=== PATIENT | male | born 1960 | race Caucasian/White ===

== ENCOUNTER 2022-05-07 15:15 | Outpatient (RCR) | payer OTHER, SELFPAY ==
--- NOTE | 2022-04-19 15:48 | PTOPEVAL1 ---
Assessment and note entered by Deb Babin DPT Evaluation Information Assessment Status Evaluation Subjective Information Pt has a history of a TBI from 11 years ago. Pt's brother reports spasticity in his left leg and sometimes has significant trouble putting his shoe /AFO on. Has had Botox in his leg. Reports things have worsened over the past few years. Pt does walk with a walker and uses a wheelchair at times. Previous left hip replacement about 10 years ago. Sometimes has pain in left leg, 5/10 highest and lowest 0/10. Reports a fall 2-3 months ago. Pt lives in a house, has stairs that he does not use. Two stairs to get in the house with a landing between. Reports he dresses and bathes independently, can cook somewhat independently. Patient goal: be able to put his foot in a shoe, reports it turns to the left as he tries to do so. Reported Pain Level Pain Score 3: Self Report Assessment PT Clinical Summary The patient is presenting to skilled therapy with a history of TBI and muscle spasticity in his left LE. He presents with decreased range of motion, strength, and muscle tone which contribute to difficulty donning a shoe and with gait. He will benefit from therapy to address these impairments in order to increase independence with dressing. Plan of Care Interventions Electrical Stimulation,Gait Training,Hot Pack/Cold Pack,Manual Therapy,Neuro Re-education,Patient/ Caregiver Education,Therapeutic Activities, Therapeutic Exercise,Self-Care/Home Management PT Services Indicated Yes Treatment Frequency and 2 times a week for 3 weeks Duration These treatments will address the objective and functional deficits as defined above. The patient will be advanced safely and appropriately in order for the patient to progress towards his/her prior level of function. Additional exercises will be introduced and as well as a comprehensive home exercise program upon discharge, if needed, ?to ensure carryover of functional gains achieved in the clinic. This treatment plan has been reviewed and agreement upon by the patient.
--- NOTE | 2022-05-10 10:28 | PCPTNOTE ---
Patient's brother called to cancel this appointment, he tested positive for covid and cannot bring David. Rescheduled to next week.
--- NOTE | 2022-06-01 14:06 | PCPTNOTE ---
Patient's brother called to cancel, David started a new medication and is not feeling well. Rescheduled to next week
--- NOTE | 2022-06-25 14:50 | PTOPDC ---
Assessment and note entered by Roddy Iverson, PT, DPT Evaluation Information Assessment Status Discharge - Pt Not Present Subjective Information Pts brother called and cancelled his re-evaluation this date. Pts brother states now is not a good time for them to work on therapy. He wishes to be discharged. Assessment PT Clinical Summary David completed 6 visits of skilled therapy from to 05/07/22.
== END 2022-06-25 15:50 | disposition home or self-care (01) ==
LOC: ANHGOSHPT 15:15
PROVIDERS: PCP Family Medicine
DX: M62.838 Other muscle spasm (principal)
CPT/HCPCS: 97110; 97116; 97140; 97162; 97530

== ENCOUNTER 2024-04-06 14:25 | Emergency (ER) | payer OTHER, SELFPAY ==
--- NOTE | ~2024-04-06 | XR_ITS ---
EXAMINATION: XR foot LT min 3V DATE: 04/06/2024 17:07 INDICATION: Left foot swelling. TECHNIQUE: 4 views of left foot were obtained. COMPARISON: None. FINDINGS: Alignment is normal. No fracture. Joint spaces are normal. There is soft tissue swelling of the foot. IMPRESSION: 1. No fracture. Reviewed, dictated and finalized at location A. RITY SYSTEM ENGINEER IMPRESSION: 1. No fracture.
--- NOTE | ~2024-04-06 | US_ITS ---
EXAMINATION: US venous doppler [facility] DATE: 04/06/2024 17:06 INDICATION: Swelling TECHNIQUE: Grayscale ultrasound images without and with compression and Doppler ultrasound images of the bilateral lower extremity veins were obtained. COMPARISON: None. FINDINGS: The visualized portions of right common femoral vein, profunda (deep) femoral vein, femoral vein, pop liteal vein, peroneal veins, posterior tibial veins, and greater saphenous vein outflow are patent. The visualized portions of left common femoral vein, femoral vein, popliteal vein, peroneal veins, po sterior tibial veins, and greater saphenous vein outflow are patent. Poor visualization of the profunda femoral vein on the submitted images. IMPRESSION: 1. No deep venous thrombosis within the visualized portions of the bilateral lower extremities, as d etailed above. Reviewed, dictated and finalized at location A. ESSIONAL CASTER IMPRESSION: 1. No deep venous thrombosis within the visualized portions of the bilateral l ower extremities, as detailed above.
--- OUTSIDE RECORDS SUMMARY | 2024-04-06 14:32 | XMS_ITS | Encounter Summary ---
Author Organization [facility] Address [address] [place] [address] Care Team Providers Care Relay Associate Name Role Phone Alcides Schultz MD Primary Care Provider [phone] Pierre Calvo MD Primary Care Provider [phone] Reason for Visit * Reason Onset Date Comments Reschedule Appointment 12/27/2022 Encounter Details Date Type Department Care Team ([facility] Contact Info) Description 12/27/2022 Telephone [facility] - Centralized Scheduling [address] [place] [phone] Sarah Smith MD [address] [phone] Reschedule Appointment Social History Tobacco Use Types Packs/Day Years Used Date Smoking Tobacco: Former Smokeless Tobacco: Former Chew Alcohol Use Standard Drinks/Week Comments No 0 (1 standard drink = 0.6 oz pur e alcohol) Sex and Gender Information Value Date Recorded Sex Assigned at Not on file Gender Identity Not on file Sexual Orientation Not on file documented as of this encounter Miscellaneous Notes * Telephone Encounter - Magy Su - 12/27/2022 10:34 AM CDT 03/03/23 Botox appointment bumped. Please contact David to reschedule his appointment. documented in this encounter Plan of Treatment Upcoming Encounters Date Type Department Care Team (Late st Contact Info) Description 04/10/2024 3:00 PM PLASTIC WELDING MACHINE OPERATOR Procedure visit [facility] - Neurology [facility] [facility], [place] [phone] Scooter George MD [address] [facility] 1L [place] [phone] 06/15/2024 3:00 PM CDT Office Visit [facility] - GI [address] [place] [address], [place] [address] Lisa Huang, INDUSTRIAL TRUCK MECHANIC-COMMUNICATIONS INTERN [address] [facility] 2L DIV [place] [address] documented as of this encounter Goals Goal Patient Goal Type Associated Problems Recent Progress Patient-Stated? Author Medication Management General On track( 024 4:13 PM CDT) Kelly Driscoll, RN Note: Expected end date: ongoing Interventions: Take all medications as prescribed documented as of this encounter Visit Diagnoses Not on filedocumented in this encounter Care Teams Relay Associate Relationship Specialty Start Date End Date Alcides Schultz MD [address] [place] [phone] PCP - General Internal Medicine 12/02/22 01/06/23 Pierre Calvo MD [address] [place] [phone] PCP - General Family Medicine 01/07/23 documented as of this encounter
--- OUTSIDE RECORDS SUMMARY | 2024-04-06 14:32 | XMS_ITS | Clinical Summary ---
Author Organization [facility] Address [address] [place] [address] Phone Care Team Providers Care Garden Tractor Mechanic Name Role Phone Jorge Pooel MD Primary Care Provider [phone] Allergies No known active allergies Medications polyethylene glycol (MIRALAX) Powder Use entire 255g bottle with 64oz of clear liquid as directed for colonoscopy prep. 255 g 0 7 Active Additional Information Patient not taking.Reported on 09/04/2018 rosuvastatin (CRESTOR) 40 MG Tablet Take 40 mg by mouth daily. Active ergocalciferol (VITAMIN D) 39830 UNIT Capsule Take 50,000 Units by mouth. Active Cholecalciferol (VITAMIN D-3 PO) Take by mouth. Activ e atorvastatin (LIPITOR) 40 MG Tablet atorvastatin 40 mg tablet Active Vilazodone HCl (VIIBRYD) 40 MG Tablet Viibryd 40 mg tablet TK 1 PO QD Active Active Problems Problem Noted Date Diagnosed Date Depression 08/23/2017 Spasticity 08/23/2017 Traumatic injury 08/22/2017 Incomplete emptying of bladder 04/04/2012 Late effect of head trauma, cognitive deficits 0 08/11/2011 Family History Medical History Relation Name Comments Abdominal Aortic Aneurysm Father Colon Cancer Mother Relation Name Status Comments Father Mother Social History Tobacco Use Types Packs/Day Years Used Date Smoking Tobacco: Former Cigarettes 1 35 1 976 - 2010 Smokeless Tobacco: Former Alcohol Use Standard Drinks/Week Comments No 0 (1 standard drink = 0.6 oz pur e alcohol) Sex and Gender Information Value Date Recorded Sex Assigned at Not on file Legal Sex Male 12:23 AM CDT Gender Identity Not on file Sexual Orientation Not on file Last Filed Vital Signs Vital Sign Reading Time Taken Comments Blood Pressure 104/70 09/04/2018 9:21 AM CDT Pulse 67 09/04/2018 9:21 AM CDT Temperature 36.4 ??C (97.6 ??F) 09/04/2018 9:21 AM CD T Respiratory Rate 16 09/04/2018 9:21 AM CDT Oxygen Saturation 97% 09/04/2018 9:21 AM CDT Inhaled Oxygen Concentration - - Weight 69.9 kg (154 lb) 09/04/2018 9:21 AM CDT p er patient Height 182.9 cm (6') 09/04/2018 9:21 AM CDT Body Mass Index 20.89 09/04/2018 9:21 AM CDT Plan of Treatment Health Maintenance Due Date Last Done Comments Hepatitis C Virus (HCV) Screening 1960 TdaP Immunization 1960 Cologuard 06/25/2011 Immunochemical Fecal Occult Blood 06/25/2011 Pneumococcal Immunization (5 0+ years) (1 of 1 - PCV) 06/25/2011 Zoster Immunization (1 of 2) 06/25/2011 PSA Discussion 2016 Colonoscopy 09/09/2021 09/09/2016 Colorectal Cancer Screening 09/09/2021 Influenza Immunization (#1) 2023 SARS-COV-2 Immunization ( season) 2023 02/24/2021, 06/23/2020, 06/02/2020 Respiratory Syncytial Virus (RSV) Immunization (Adult) (1 - 1-dose 75+ series) 2036 09/09/2016 DTaP/Tdap/Td Immunization Discontinued 11/16/2007 Hepatitis B Immunization Completed 009, 02/23/2008, 11/16/2007 Meningococcal Immunization (ACWY) Aged Out No longer eligible based on patient's age to complete this topic Pneumococcal Immunization Combined Aged Out No longer eligible based on patient's age to complete this topic Rotavirus Immunization Aged Out No lo nger eligible based on patient's age to complete this topic Procedures Procedure Name Priority Date/Time Associated Diagnosis Comments HM COLONOSCOPY Routine 09/09/2016 from Last 3 Months or Most Recently Relevant to Health Maintenance Results * COLONOSCOPY (09/09/2016) Jorge Poole MD PROCEDURE/MINOR SURGICAL ORDE RIANNAJUAN A Final Result from Last 3 Months or Most Recently Relevant to Health Maintenance Insurance [employer] Care Teams Garden Tractor Mechanic Relationship Specialty Start Date End Date Jorge Poole MD [address] [place] [address] PCP - General Family Medicine 05/03/16
--- OUTSIDE RECORDS SUMMARY | 2024-04-06 14:32 | XMS_ITS | Referral Summary ---
Author Organization [facility] Address [address] [facility] [place] [address] Care Team Providers Care Speech And Language Assistant Name Role Phone Pierre Calvo MD Primary Care Provider [phone] Source Comments [facility],non-owned Affiliates and Associated Physician Practices is amultiple site organization consisting of ambulatory clinics and hospital sitesin [place], [place], [place] and [place]. This disclosure is being madepursuant to the Care Everywhere program and may not contain all information available regarding this patient. Last updated 17.[facility] Encounters Date Type Department Care Team Description 02/27/2024 Travel 02/27/2024 11:19 AM BREAK OUT MAN - 02/27/2024 11:59 PM [facility] Hospital Encounter [facility] OP DRAW STATION [address] [place] [phone] Discharge Disposition: Home or Self Care from Last 3 Months Allergies No known active allergies Medications * Be aware that medications may not be up to date on this document. Alwaysverify current medications with the patient. Medication Sig Dispensed Refills Start Date End Date Status buPROPion XL 24hr (Wellbutrin-XL) 150 MG tablet bupropion HCl XL 150 mg 24 hr tablet, extended release TAKE 1 TABLET BY MOUTH EVERY DAY IN THE MORNING Active carbamide peroxide (Debrox) 6.5 % otic solution Instill into both ears as needed Active ergocalciferol (Drisdol) 1.25 MG (61020 UT) capsule ergocalciferol (vitamin D2) 1,250 mcg (50,000 unit) capsule Active escitalopram (Lexapro) 20 MG tablet escitalopram 20 mg tablet TAKE 1 TABLET BY MOUTH EVERY DAY AT BEDTIME Active famotidine (Pepcid) 20 MG tablet Active polyethylene glycol 3350 (Miralax) 17 GM/SCOOP powder Active onabotulinumtoxin A (Botox) 100 units injectionIndicati ons:Muscle Spasticity Inject 300 (three hundred) Units into muscle Every 90 days Reasons: Muscle Spasticity 3 Each 3 02/08/2022 Active atorvastatin (Lipitor) 20 MG tablet Take 1 (one) tablet by mouth 03/06/2023 Active baclofen (Lioresal) 5 MG TABS TAKE 1 TABLET BY MOUTH TWICE DAILY NEEDED. MAY CAUSE DROWSINESS. REASONS: MUSCLE SPASMS 60 tablet 11 08/12/2023 Active onabotulinumtoxin A (Botox) 100 units injectionIndicati ons:Muscle Spasticity Inject 300 (three hundred) Units into muscle Every 90 days Reasons: Muscle Spasticity 3 Each 3 09/13/2023 Active Active Problems Problem Noted Date Diagnosed Date Dystrophia unguium 11/29/2022 01/07/2023 Left foot drop 11/29/2022 01/07/2023 Onychomycosis of toenail 10/18/2022 023 Vitamin D deficiency 10/14/2020 01/07/2023 Overview (01/07/2023): Last Assessment & Plan: Condition: stable David is encouraged to spend at least 10 minutes in the sun daily. Also pt should try to include fatty fish, seafood, and mushrooms in their diet. A diet rich on yogurt fortified foods, and egg yolks may help increase pts vitamin D levels. Follow up in: three months with PCP Chronic idiopathic constipation 09/10/2020 01/07/2023 Gastroesophageal reflux disease without esophagi tis 09/10/2020 01/07/2023 Overview (01/07/2023): Last Assessment & Plan: Condition: stable Reviewed use of antacid medication and/or diet modifications of decreasing caffeine, spicy foods, chocolate, and avoiding alcohol, tobacco, NSAIDs, and reducing citrus acids. Follow up in: three months Impaired mobility 09/10/2020 01/07/2023 Irritable bowel syndrome 09/10/2020 023 History of traumatic brain injury 05/07/2019 Hyperbilirubinemia 05/07/2019 Hyperlipidemia 05/07/2019 Muscle weakness 05/07/2019 Ex-smoker 05/06/2019 03/09/2023 Elevated liver enzymes 11/02/2018 Overview (01/07/2023): 01/09/19 Fibroscan CAP 234, E 4.1 kPa 01/07/23 Fibroscan CAP 189, LSM 6.2 kPa Spasticity 08/23/2017 Depression 08/23/2017 Traumatic injury 08/22/2017 Periprosthetic fracture arou nd internal prosthetic left hip joint 07/15/2012 Incomplete emptying of bladder 04/04/2012 Late effect of head trauma, cognitive deficits 0 08/11/2011 Resolved Problems Problem Noted Date Diagnosed Date Resolved Date Bilateral impacted cerumen 05/06/2019 03/09/2023 0 03/23/2023 Immunizations Name Administration Dates Next Due [employer] BIVALENT 12Y+ 30mcg/0.3ML 2 HEP A VACCINE, ADULT 05/24/2008,11/17/2007 HEP B VACCINE, ADULT 3 DOSE 07/12/2008, 8,11/16/2007 INFLUENZA VACCINE, QUADR. (F LUZONE; FLULAVAL; FLUARIX; AFLURIA QUADRIVALENT; 6MO+), 0.5 ML (IIV4) 12/13/2022 MMR VACCINE 11/17/2007 TD (AGE 7-ADULT) 11/16/2007 TDAP, HISTORIC VACCINE 02/24/2021 Social History Tobacco Use Types Packs/Day Years Used Date Smoking Tobacco: Former Smokeless Tobacco: Former Chew Quit: 12/29/2010 Tobacco Cessation:Counseling Given: Not Answered Alcohol Use Standard Drinks/Week Comments No 0 (1 standard drink = 0.6 oz pur e alcohol) Sex and Gender Information Value Date Recorded Sex Assigned at Not on file Gender Identity Not on file Sexual Orientation Not on file Last Filed Vital Signs Vital Sign Reading Time Taken Comments Blood Pressure 102/68 09/13/2023 11:31 AM CDT Pulse 73 09/13/2023 11:31 AM CDT Temperature 36.5 ??C (97.7 ??F) 06/17/2023 3:34 PM CD T Respiratory Rate 20 09/24/2019 12:10 PM CDT Oxygen Saturation 96% 09/13/2023 11:31 AM CDT Inhaled Oxygen Concentration - - Weight 80.7 kg (178 lb) 09/13/2023 11:31 AM CDT Height 182.9 cm (6') 06/17/2023 3:34 PM CDT Body Mass Index 24.14 06/17/2023 3:34 PM CDT Plan of Treatment Upcoming Encounters Date Type Department Care Team (Late st Contact Info) Description 04/10/2024 3:00 PM BREAK OUT MAN Procedure visit [facility] - Neurology [address] [place] [address], [place] [phone] Scooter George MD [address] [place] [address] [address] [place] [address] 06/15/2024 3:00 PM CDT Office Visit [facility] - GI [address] [place] [address], [place] [address] Lisa Huang, WAREHOUSE PICKER-SOLE LAYER [address] [place] [address] [address] [place] [address] Goals Goal Patient Goal Type Associated Problems Recent Progress Patient-Stated? Author Medication Management General On track( 024 4:13 PM CDT) Kelly Driscoll, RN Note: Expected end date: ongoing Interventions: Take all medications as prescribed Procedures Procedure Name Priority Date/Time Associated Diagnosis Comments COMPREHENSIVE METABOLIC PANEL Routine 02/27/2024 12:18 PM BREAK OUT MAN Hyperbilirubinemia CBC W AUTO DIFFERENTIAL Routine 02/27/2024 12:18 PM BREAK OUT MAN Hyperbilirubinemia HEPATITIS C RNA QUANTITATIVE Routine 11/02/2018 3:45 PM CDT Elevated liver enzymes from Last 3 Months or Most Recently Relevant to Health Maintenance Results * (ABNORMAL) CBC WITH DIFFERENTIAL (02/27/2024 12:18 PM [facility]) WBC 6.9 4.0 - 10.7 x10E9/L 02/27/2024 1:28 PM [facility] RBC Count 4.85 4.30 - 5.80 x10E12/L 02/27/2024 1:28 PM [facility] Hemoglobin 14.6 13.3 - 17.5 g/dL 02/27/2024 1:28 PM [facility] Hematocrit 43.0 38.7 - 51.1 % 02/27/2024 1:28 PM [facility] MCV 88.7 80.0 - 98.0 fL 02/27/2024 1:28 PM [facility] MCH 30.1 26.7 - 33.6 pg 02/27/2024 1:28 PM [facility] MCHC 34.0 31.7 - 36.3 g/dL 02/27/2024 1:28 PM [facility] RDW-CV 12.4 11.3 - 14.8 % 02/27/2024 1:28 PM [facility] Platelet Count 226 150 - 420 x10E9/L 02/27/2024 1:28 PM [facility] MPV 12.1(H) 7.8 - 11.4 fL 02/27/2024 1:28 PM [facility] Neutrophil % 68.4 41.0 - 74.0 % 02/27/2024 1:28 PM [facility] Lymphocyte % 20.4 17.0 - 47.0 % 02/27/2024 1:28 PM [facility] Monocyte % 6.5 3.0 - 11.0 % 02/27/2024 1:28 PM [facility] Eosinophil % 4.2 0.0 - 7.0 % 02/27/2024 1:28 PM [facility] Basophil % 0.4 0.0 - 1.6 % 02/27/2024 1:28 PM [facility] Immature Granulocytes % 0.1 0.0 - 1.0 % 02/27/2024 1:28 PM [facility] Neutrophil Absolute 4.72 1.60 - 7.50 x10E9/L 02/27/2024 1:28 PM [facility] Lymphocyte Absolute 1.41 1.00 - 4.40 x10E9/L 02/27/2024 1:28 PM [facility] Monocyte Absolute 0.45 0.15 - 1.00 x10E9/L 02/27/2024 1:28 PM [facility] Eosinophil Absolute 0.29 0.00 - 0.60 x10E9/L 02/27/2024 1:28 PM [facility] Basophil Absolute 0.03 0.00 - 0.13 x10E9/L 02/27/2024 1:28 PM [facility] Blood BLOOD SPECIMEN / Unknown Lab Venipuncture / Unknown 02/27/2024 12:18 PM BREAK OUT MAN 02/27/2024 1:02 PM [facility] Lisa Huang WAREHOUSE PICKER-SOLE LAYER LAB - HEMATO LOGY ORDERABLES Performing Organization Address City/[facility] Co de Phone Number [facility] [address] [place] [phone], [facility] [phone] * (ABNORMAL) COMPREHENSIVE METABOLIC PANEL (02/27/2024 12:18 PM BREAK OUT MAN) BUN 14 7 - 26 mg/dL 02/27/2024 2:02 PM [facility] Creatinine 1.11 0.71 - 1.16 mg/dL 02/27/2024 2:02 PM [facility] Sodium 140 136 - 145 mmol/L 02/27/2024 2:02 PM [facility] Potassium 4.1 3.5 - 4.5 mmol/L 02/27/2024 2:02 PM [facility] Chloride 106 98 - 107 mmol/L 02/27/2024 2:02 PM [facility] CO2 26 22 - 29 mmol/L 02/27/2024 2:02 PM [facility] Glucose 97 70 - 99 mg/dL 02/27/2024 2:02 PM [facility] Calcium 8.9 8.4 - 10.2 mg/dL 02/27/2024 2:02 PM [facility] Protein Total 7.3 6.0 - 8.3 g/dL 02/27/2024 2:02 PM [facility] Albumin 4.0 3.4 - 5.0 g/dL 02/27/2024 2:02 PM [facility] Bilirubin Total 1.3(H) 0.2 - 1.2 mg/dL 02/27/2024 2:02 PM [facility] Alkaline Phosphatase 148 40 - 150 U/L 02/27/2024 2:02 PM [facility] ALT 49 5 - 55 U/L 02/27/2024 2:02 PM [facility] AST 33 5 - 34 U/L 02/27/2024 2:02 PM [facility] Anion Gap 8 6 - 16 02/27/2024 2:02 PM [facility] BUN/Creatinine Ratio 13 7 - 23 02/27/2024 2:02 PM [facility] Osmolality Calculated 290 275 - 295 mOsm/kg 02/27/2024 2:02 PM [facility] Albumin/Globulin Ratio 1.2 1.1 - 2.3 02/27/2024 2:02 PM [facility] eGFR by CKD-EPI 75(L) >=90 mL/min/1.7 3 m2 02/27/2024 2:02 PM [facility] Blood BLOOD SPECIMEN / Unknown Lab Venipuncture / Unknown 02/27/2024 12:18 PM BREAK OUT MAN 02/27/2024 1:04 PM BREAK OUT MAN Lisa Huang WAREHOUSE PICKER-SOLE LAYER LAB - CHEMIS TRY ORDERABLES [facility] [address] [place] [address], [facility] [phone] * HEPATITIS C RNA QUANTITATIVE (11/02/2018 3:45 PM CDT) Hepatitis C RNA PCR, Interp Not Detected Not Detected 11/07/2018 8:35 PM CDT [facility] Blood BLOOD SPECIMEN / Unknown Lab Venipuncture / Unknown 11/02/2018 3:45 PM CDT 11/02/2018 4:04 PM CDT Narrative [facility] - 11/07/2018 8:35 PM CDT The Hepatitis C viral (HCV) RNA analysis utilized a serum sample, real-time reverse ax survey worker PCR, and is reported as Not Detected, Detected (<12 IU/mL), Quantity (IU/mL) or >100,000,000 IU/mL. The limit of quantitation of the assay is 12 IU/mL (100% of samples with this HCV RNA level were detected). ??The linear range is from 12 IU/mL to 100,000,000 IU/mL. ??Values less than 12 IU/mL are reported as Detected (<12 IU/mL). ??Values greater than 100,000,000 IU/mL are reported as > 100,000,000 IU/mL. The detection/quantitation of HCV RNA in serum is based on the isolation of HCV RNA with reverse ax survey worker of genomic HCV RNA followed by real-time PCR in the presence of an unrelated RNA internal control. ??The internal control ensures that RNA is isolated, and that no general significant inhibitors of the RT-PCR process are present. The analysis was performed using a U.S. FDA approved test methodology ([employer] Real Time HCV). Lisa Huang APRN-SOLE LAYER LAB - CHEMIS TRY ORDERABLES [facility] [address] [facility]. [address] [phone] from Last 3 Months or Most Recently Relevant to Health Maintenance Care Teams Speech And Language Assistant Relationship Specialty Start Date End Date Pierre Calvo MD [address] [place] [phone] PCP - General Family Medicine 01/07/23
--- OUTSIDE RECORDS SUMMARY | 2024-04-06 14:32 | XMS_ITS | Data Portability ---
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 Active 2022 Horace Loo DPM [address], [place], [address] , [facility] 3 15:48:15 Severe dry skin 580904711 Active 2022 Horace Loo DPM [address], [place], [address] , [facility] 3 15:48:28 Unable to cut own toenails 577556430 Active 2022 Horace Loo DPM [address], [place], [address] , [facility] 3 15:49:18 Notes:injury to the brain, l eft shoulder and left leg Problem Notes None recorded. Procedures Surgical History Date Name Laterality Status Provider Name and Address Organization Details Recorded Time 03/10/19 24 Ear Irrigation completed Pierre Calvo MD [address] [facility], [facility] [address], [place], [address], [facility] [employer] [facility] 03/10/2023 16:18:27 11/30/19 23 Nail Debridement completed Horace Loo DPM [address] [facility], [facility] [address], [place], [address], [facility] [employer] 11/29/2022 15:48:01 Shoulder joint surgery completed Not Available [facility] 05/05/2022 19:48:20 Hip surgery completed Not Available [facility] 05/05/2022 19:48:20 Imaging Results None recorded. Procedure Notes None recorded. Medical Equipment None Reported. Allergies No known drug allergies Medications Name Sig Start Date Stop Date Status Note LastModified by Organization Details LastModified Time quetiapine 25 mg tablet TK 1 T PO QHS 09/10 completed Not Available Not Available Not Available atorvastati n 40 mg tablet Take 1 tablet every day by oral route. 01/08 completed Not Available Not Available Not Available atorvastati n 20 mg tablet TAKE 1 TABLET BY MOUTH EVERY DAY AT BEDTIME 2023 active Not Available Not Available Not Avai lable ammonium lactate 12 % lotion Apply 2 applicati ons every day by topical route as directed. 2022 active Not Available Not Available Not Avai lable atorvastati n 10 mg tablet TAKE 1 TABLET BY MOUTH EVERY DAY 12/08 completed Not Available Not Available Not Available promethazin e 12.5 mg tablet Take 1 tablet twice a day by oral route as needed for 15 days. active Not Available Not Available No t Available Debrox 6.5 % ear drops INSTILL 4 DROPS INTO AFFECTED EAR(S) BY OTIC ROUTE 2 TIMES PER DAY 11/29 completed Not Available Not Available Not Available famotidine 20 mg tablet TAKE 1 TABLET BY MOUTH TWICE DAILY DIRECTED active Not Available Not Available No t Available ergocalcife rol (vitamin D2) 1,250 mcg (50,000 unit) capsule TAKE 1 CAPSULE BY MOUTH EVERY WEEK DIRECTED 2024 active Not Available Not Available Not Avai lable polyethylen e glycol 3350 17 gram/dose oral powder Take 17 g every day by oral route as directed for 30 days. active Not Available Not Available No t Available Adult Low Dose Aspirin 81 mg tablet,sharonda yed release Take 1 tablet every day by oral route with meals for 90 days. 2023 active Not Available Not Available Not Avai lable escitalopra m 10 mg tablet TAKE 1 TABLET BY MOUTH EVERY DAY AT BEDTIME 10/13 completed Not Available Not Available Not Available escitalopra m 20 mg tablet TAKE 1 TABLET BY MOUTH EVERY DAY AT BEDTIME active Not Available Not Available No t Available Vitamin D3 25 mcg (1,000 unit) capsule Take 1 capsule every day by oral route. 09/10 completed Not Available Not Available Not Available rosuvastati n 20 mg tablet Take 1 tablet every day by oral route. active Not Available Not Available No t Available Crestor 40 mg tablet Take 1 tablet every day by oral route. active Not Available Not Available No t Available bupropion HCl XL 150 mg 24 hr tablet, extended release TAKE 1 TABLET BY MOUTH EVERY DAY IN THE MORNING active Not Available Not Available No t Available duloxetine 30 mg capsule,del ayed release TK 1 C PO D 09/10 completed Not Available Not Available Not Available Lactobacill us acidophilus 1 billion cell tablet Take 1 tablet every day by oral route as directed for 30 days. active Not Available Not Available No t Available baclofen active Not Available Not Avai lable Not Available Viibryd 40 mg tablet TK 1 T PO QAM 09/10 completed Not Available Not Available Not Available Vitals Date Recorded Body height Provider Name an d Address Organization Details Last Updated DateTime 12/08/2022 182.88 cm Jed [employer] 12/08/2022 16:49:16 Date Recorded Body mass index (BMI) Body weight Provider Name and Address Organization Details Last Updated DateTime 12/08/2022 20.4 kg/m2 75787.21 g [employer] 12/08/2022 16:49:33 Date Recorded Body temperature Provider Name a nd Address Organization Details Last Updated DateTime 12/08/2022 97.1 [degF] Jed [employer] 12/08/2022 16:49:46 Date Recorded Heart rate Provider Name an d Address Organization Details Last Updated DateTime 12/08/2022 97.9 /min Jed Rogers [facility] 12/08/2022 16:50:06 Date Recorded Respiratory rate Provider Name a nd Address Organization Details Last Updated DateTime 12/08/2022 16 /min Jed Rogers [facility] 12/08/2022 16:51:08 Date Recorded Oxygen saturation Oxygen saturation in Arterial blood by Pulse oximetry Provider Name and Address Organization Details Last Updated DateTime 12/08/2022 99 % 99 % Jed [facility] - [facility] 12/08/2022 16:51:18 Date Recorded Body height Provider Name an d Address Organization Details Last Updated DateTime 03/10/2023 182.88 cm Jed Rogers [facility] 03/10/2023 16:10:32 Date Recorded Body mass index (BMI) Body weight Provider Name and Address Organization Details Last Updated DateTime 03/10/2023 21.7 kg/m2 82606.78 g Jed MED[facility] - [facility] [place] [employer] [facility] 03/10/2023 16:11:07 Date Recorded Body temperature Provider Name a nd Address Organization Details Last Updated DateTime 03/10/2023 97.1 [degF] Jed BANUELOSS [facility] 03/10/2023 16:11:16 Date Recorded Heart rate Provider Name an d Address Organization Details Last Updated DateTime 03/10/2023 98.1 /min Jed Rogers [facility] 03/10/2023 16:11:31 Date Recorded Respiratory rate Provider Name a nd Address Organization Details Last Updated DateTime 03/10/2023 16 /min Jed [facility] - [facility] 03/10/2023 16:11:34 Date Recorded Oxygen saturation Oxygen saturation in Arterial blood by Pulse oximetry Provider Name and Address Organization Details Last Updated DateTime 03/10/2023 97 % 97 % Jed Rogers [facility] 03/10/2023 16:13:21 Date Recorded Body height Provider Name an d Address Organization Details Last Updated DateTime 06/28/2023 182.88 cm Jed Rogers [facility] [employer] [facility] 06/28/2023 16:48:50 Date Recorded Body mass index (BMI) Body weight Provider Name and Address Organization Details Last Updated DateTime 06/28/2023 23.1 kg/m2 75156.7 g Jed [facility] - [facility] [place] [employer] [facility] 06/28/2023 16:52:19 Date Recorded Body temperature Provider Name a nd Address Organization Details Last Updated DateTime 06/28/2023 98.1 [degF] Jed [facility] - [facility] [place] [employer] [facility] 06/28/2023 16:52:42 Date Recorded Heart rate Provider Name an d Address Organization Details Last Updated DateTime 06/28/2023 98.4 /min Jed MEDINA - [facility] [employer] [facility] 06/28/2023 16:52:58 Date Recorded Respiratory rate Provider Name a nd Address Organization Details Last Updated DateTime 06/28/2023 16 /min Jed [facility] - [facility] [place] [employer] [facility] 06/28/2023 16:53:02 Date Recorded Oxygen saturation Oxygen saturation in Arterial blood by Pulse oximetry Provider Name and Address Organization Details Last Updated DateTime 06/28/2023 98 % 98 % Jed MED[facility] - S [employer] [facility] 06/28/2023 16:54:53 Date Recorded Body height Provider Name an d Address Organization Details Last Updated DateTime 10/20/2023 182.88 cm Jed B[place] [employer] [facility] 10/20/2023 15:58:04 Date Recorded Body mass index (BMI) Body weight Provider Name and Address Organization Details Last Updated DateTime 10/20/2023 23.1 kg/m2 32878.7 g Jed Rogers [place] [employer] [facility] 10/20/2023 15:59:21 Date Recorded Body temperature Provider Name a nd Address Organization Details Last Updated DateTime 10/20/2023 98 [degF] Jed MEDINA - [facility] [employer] [facility] 10/20/2023 16:00:00 Date Recorded Heart rate Provider Name an d Address Organization Details Last Updated DateTime 10/20/2023 72 /min Jed [facility] - [facility] [place] [employer] [facility] 10/20/2023 16:00:30 Date Recorded Respiratory rate Provider Name a nd Address Organization Details Last Updated DateTime 10/20/2023 16 /min Jed BANU[facility]OSS [employer] [facility] 10/20/2023 16:00:34 Date Recorded Oxygen saturation Oxygen saturation in Arterial blood by Pulse oximetry Provider Name and Address Organization Details Last Updated DateTime 10/20/2023 98 % 98 % Jed [facility] - [facility] [place] [facility] 10/20/2023 16:02:28 Date Recorded Systolic blood pressure Diastolic blood pressure Provider Name and Address Organization Details Last Updated DateTime 12/08/2022 118 mm[Hg] 64 mm[Hg] Jed [facility] - [facility] [place] [facility] 12/08/2022 16:51:16 Date Recorded Systolic blood pressure Diastolic blood pressure Provider Name and Address Organization Details Last Updated DateTime 03/10/2023 102 mm[Hg] 64 mm[Hg] Jed [facility] - [facility] [place] [facility] 03/10/2023 16:13:09 Date Recorded Systolic blood pressure Diastolic blood pressure Provider Name and Address Organization Details Last Updated DateTime 06/28/2023 110 mm[Hg] 60 mm[Hg] Jed [facility] - [facility] [place] [facility] 06/28/2023 16:54:48 Date Recorded Systolic blood pressure Diastolic blood pressure Provider Name and Address Organization Details Last Updated DateTime 10/20/2023 108 mm[Hg] 68 mm[Hg] Jed [facility] [facility] 10/20/2023 16:02:10 Social History Question Answer Notes LastModified by Organizat ion Details LastModified Time Tobacco Smoking Status Former Smoker Not Available [facility] 05/05/2022 19:48:19 Do You Have An Advance Directive? No [id number] Information not available 05/05/2022 What Is Your Level Of Alcohol Consumption? None [id number] Information not available 05/05/2022 Are You Blind Or Do You Have Difficulty Seeing? No MIGRATION.[id number] [id number] Information not available 05/05/2022 What Is Your Level Of Caffeine Consumption? Occasional Information not available 11/29/2022 What Is Your Code Status? Full Code [id number] Information not available 05/05/2022 In The 14 Days Before Symptom Onset, Have You Had Close Contact With A Laboratory-confir med COVID-19 While That Case Was Ill? No [id number] Information not available 05/05/2022 In The 14 Days Before Symptom Onset, Have You Had Close Contact With A Person Who Is Under Investigation For COVID-19 While That Person Was Ill? No MIGRATION.[id number] 3003 Information not available 05/05/2022 Are You Deaf Or Do You Have Serious Difficulty Hearing? No MIGRATION.[id number] 1460 Information not available 05/05/2022 What Type Of Diet Are You Following? REGULAR MIGRATION.[id number] 5800 Information not available 05/05/2022 Do You Have A Medical Power Of Wrapper Counter? No MIGRATION.[id number] 6572 Information not available 05/05/2022 What Was The Date Of Your Most Recent Tobacco Screening? 11/29/2022 Information not available 11/29/2022 Do You Use Any Illicit Or Recreational Drugs? No Information not available 11/29/2022 Has Tobacco Cessation Counseling Been Provided? No Information not available 11/29/2022 Have You Recently Traveled Abroad? No MIGRATION.[id number] Information not available 05/05/2022 Do You Have Any Dietary Restrictions? No MIGRATION.500551 4261 Information not available 05/05/2022 Do You Or Have You Ever Used Any Other Forms Of Tobacco Or Nicotine? No Information not available 11/29/2022 Sex: Male Functional Status Question Answer Note LastModified by Organizat ion Details LastModified Time Do you have difficulty walking or climbing stairs? Yes MIGRATION.[id number] Information not available 05/05/2022 Do you have transportation difficulties? Yes hasn't driven in 2 years MIGRATION.91624 96069 Information not available 05/05/2022 Are you able to walk? YESASSIST wheelchair and walker MIGRATION.11738 45039 Information not available 05/05/2022 Do you have difficulty doing errands alone? Yes MIGRATION.78717 90661 Information not available 05/05/2022 Are you able to care for yourself? Yes MIGRATION.23026 30214 Information not available 05/05/2022 Do you have difficulty dressing or bathing? No MIGRATION.60000 32989 Information not available 05/05/2022 What is your exercise level? None MIGRATION.84761 02978 Information not available 05/05/2022 Mental Status Question Answer Note LastModified by Organizat ion Details LastModified Time Do you have difficulty concentrating, remembering or making decisions? Yes [id number] 6 Information not available 05/05/2022 Family History Relationship Description Onset Age of this Age Resolved Age Notes LastModified by Organization Details LastModified Time Father No current problems or disability [id number] Not available 05/05/2022 19:48:21 Mother No current problems or disability MIGRATION.[id number] Not available 05/05/2022 19:48:21 Father Hypertensive disorder Not available 2022 15:24:18 Mother Hypertensive disorder Not available 2022 15:24:18 Mother Family history of malignant neoplasm Not available 2022 15:24:34 Medical History Condition Response DEPRESSION (INCLUDING POST ) Y HIGH CHOLESTEROL / HYPERLIPIDEMIA Y Immunizations Vaccine Type Date Status Note Provider Nam e and Address Organization Details Recorded Time Influenza, split virus, quadrivalent, PF 12/13/2022 completed CAROL Almendarez Arsenio [place] [facility] 12/14/2022 10:05:54 Past Encounters Encounter ID Performer Location Encounter Start Date Encounter Closed Date Diagnosis/Indication Diagnosis SNOMED-CT Code Diagnosis ICD10 Code Diagnosis Note [id number] [address] [address] 09/10/2020 00:00:00 09/10/2020 17:46:[id number] [address] 10/01/2020 00:00:00 10/08/2020 16:53:[id number] [address] 10/14/2020 00:00:00 10/14/2020 18:04:[id number] [address] 01/05/2021 00:00:00 01/05/2021 16:58:[id number] [address] 01/14/2021 00:00:00 01/14/2021 17:21:34 [id number] [facility]enny [address] [place] [address] 10/13/2021 00:00:00 10/13/2021 17:56:43 [id number] [facility] Heidi Rausch, [address] [address] 01/05/2021 00:00:00 01/05/2021 13:09:36 [id number] [facility] Tari Rausch, [address] [address] 02/05/2021 00:00:00 02/05/2021 16:09:05 [id number] [facility] Heidi Rausch, [address] [address] 04/01/2021 00:00:00 04/01/2021 14:50:02 [id number] [facility] 4 Tari Rausch, [address] [address] 04/29/2021 00:00:00 04/29/2021 18:35:34 [id number] [facility] 4 Tari Rausch, [address] [address] 05/25/2021 00:00:00 05/25/2021 16:29:11 [id number] [facility] 4 Tari Rausch, [address] [address] 06/25/2021 00:00:00 06/25/2021 16:18:13 [id number] [facility] 4 Tari Rausch, [address] [address] 08/20/2021 00:00:00 08/20/2021 17:20:34 [id number] [facility] Tari Rausch, [address] [address] 09/17/2021 00:00:00 09/17/2021 15:49:21 [id number] [facility] 4 Tari Rausch, [address] [address] 11/12/2021 00:00:00 11/12/2021 16:53:38 [id number] [facility] [address] [address] 01/14/2022 00:00:00 01/14/2022 16:31:20 [id number] [facility] [address] [address] 04/08/2022 00:00:00 04/12/2022 14:29:32 [id number] Taya Isidro NP [facility] [address] [address] 07/07/2022 15:52:02 07/07/2022 17:36:55 [id number] Taya Isidro NP [facility] [address] [address] 10/05/2022 15:33:57 10/05/2022 15:56:26 [id number] Pierre Calvo MD [facility]_[address] [address] 10/18/2022 14:25:45 10/18/2022 15:03:09 Adult health examination 752731009 Z00.00 Vitamin D deficiency 347 42806 E55.9 Muscle weakness 18754489 M62.81 Impaired mobility 320079 05 Z74.09 Onychomyco sis of toenails 775697066 B35.1 Impacted c erumen of bilateral ears 9485607604 175024 H61.23 [id number] Horace Loo DPM [facility] Pod[facility]ry Kristina Navarro [address] [place] [address] 11/29/2022 15:14:41 11/30/2022 11:56:47 Left foot drop 2025004174 31156 M21.372 continue AFOCheck feet daily for wounds infection Dystrophia unguium 20582 009 L60.3 Nails 1 through 10 were debrided with sharp mechanical debridemen t without incident. Nails were debrided and greater than 50% length and thickness where needed. Severe dry skin 14198944 2 L85.3 daily foot hygiene History of traumatic brain injury 0498536922 9100 Z87.820 affect of the left side Unable to cut own toenails 111998780 Z74.1 secondary to traumatic brain injury [id number] Pierre Calvo MD [place] [address] 1 12/08/2022 16:44:32 12/08/2022 17:12:41 Vitamin D deficiency 50258310 E55.9 Muscle weakness 75702005 M62.81 Impaired mobility 086052 05 Z74.09 Onychomyco sis of toenails 910661768 B35.1 Impacted c erumen of bilateral ears 6953058542 392790 H61.23 Hyperlipidemia 04711717 E78.5 Liver enzy mes level above reference range 146876511 R74.01 Administra tion of influenza vaccine 84456420 Z23 [id number] Taya Isidro NP [facility] [address] [place] [address] 02/02/2023 16:35:03 02/02/2023 17:59:15 [id number] Pierre Calvo MD [address] [address] 03/10/2023 16:03:09 03/10/2023 16:30:25 Vitamin D deficiency 55494708 E55.9 Liver enzy mes level above reference range 724750919 R74.01 Chronic Impacted c erumen of bilateral ears 1309551952 360501 H61.23 Muscle weakness 93399060 M62.81 Impaired mobility 613651 05 Z74.09 Onychomyco sis of toenails 932426771 B35.1 Hyperlipidemia 79327582 E78.5 [id number] Taya Isidro NP [facility] [address] [place] [address] 06/02/2023 16:36:27 06/02/2023 17:28:19 [id number] JOCE Kowalski [address] [address] 06/09/2023 14:11:33 06/09/2023 14:14:52 [id number] Pierre Calvo MD [address] [address] 06/28/2023 16:47:49 06/28/2023 17:18:27 Hyperlipidemia 26102022 E78.5 Liver enzy mes level above reference range 604197929 R74.01 Chronic Vitamin D deficiency 347 08004 E55.9 Muscle weakness 61341611 M62.81 Impaired mobility 008163 05 Z74.09 Onychomyco sis of toenails 360523696 B35.1 [id number] Taya Isidro NP [facility] [address] [address] 08/24/2023 15:11:01 08/24/2023 15:43:47 [id number] Pierre Calvo MD [address] [address] 10/20/2023 15:53:26 10/20/2023 16:24:17 Hyperlipidemia 44339073 E78.5 Liver enzy mes level above reference range 275976238 R74.01 Chronic Vitamin D deficiency 347 10548 E55.9 Muscle weakness 35136254 M62.81 Impaired mobility 729974 05 Z74.09 Onychomyco sis of toenails 673305592 B35.1 Adult heal th examination 653088944 Z00.00 Impacted c erumen of bilateral ears 7386390359 796618 H61.23 Screening colonoscopy 44 2470812 Z12.11 [id number] Taya Isidro NP [facility] [address] [place] [address] 11/23/2023 15:41:35 11/23/2023 16:20:59 [id number] Taya Isidro NP [facility] [address] [facility] [address] [place] [address] 03/21/2024 14:53:01 03/21/2024 16:06:33 Health Concerns Section Related Observation LastModified by Organization Kajal ls LastModified Time None Recorded Concern Status LastModified by Organization Details LastModified Time None Recorded Advance Directives Directive N: Payers Encounter Date Sequence Insurance Name Policy Number Policy Pierre Covered Member ID Pierre Member ID Guarantor Name 12/08/2022 1 [facility] (MEDICAID HMO) [id number] David D Bowen [id number] David D Bowen 03/10/2023 1 [facility] (MEDICAID HMO) [id number] David D Bowen [id number] David D Bowen 06/09/2023 1 [facility] (MEDICAID HMO) [id number] David D Bowen [id number] David D Bowen 06/28/2023 1 [facility] (MEDICAID HMO) [id number] David D Bowen [id number] David D Bowen 10/20/2023 1 [facility] (MEDICAID HMO) [id number] 0003 David D Bowen [id number] David D Bowen Notes Date Note Type Note Provider Name and Address Organization Details Recorded Time 12/08/2022 text/html Pt is here with his brother (Adam) for f/u on his annual labs and b/l ear flushing. Doing overall well. Denies any new concerns. Denies any problem with meds.Pt was last seen in 10/26 and since , no visit. Pt is f/u with Manager Sustainability at [facility] due to elevated LFT and high bilirubin levels and they did bunch of testing and it all came back good. As per him, nothing concerning.Pt lives with his friend (Dheeraj) in and pt's brother (Adam) helps him with any appointment/medica l visits. Doing overall ok with his mood. Denies any mood swings/SI/HI. Pt is f/u with Psych for this and in on meds by them.Pt has TBI in 12/15 and since than, his Lt side is weaker compared to Rt side and pt was seeing Neuro at [facility] for this. 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 Pt is in wheelchair since . Pierre Calvo MD [address] [facility], [facility] [address], [place], [address], [facility] [employer] 12/08/2022 17:10:02 03/10/2023 text/html Pt is here with his brother (Adam) for f/u on his labs and b/l ear flushing. Pt forgot to go for labs. Doing overall well. Denies any new concerns. Denies any problem with meds. Pt is f/u with Manager Sustainability at [facility] due to elevated LFT and high bilirubin levels and they did bunch of testing and it all came back good. As per him, nothing concerning.Pt lives with his friend (Dheeraj) in and pt's brother (Adam) helps him with any appointment/medica l visits. Doing overall ok with his mood. Denies any mood swings/SI/HI. Pt is f/u with Psych for this and in on meds by them.Pt has TBI in 12/15 and since , his Lt side is weaker compared to Rt side and pt was seeing Neuro at [facility] for this. 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 Pt is in wheelchair since . Pierre Calvo MD [address] [facility], [facility] [address], [place], [address], [facility] [employer] 03/10/2023 16:27:41 06/28/2023 text/html Pt is here with his brother (Adam) for f/u on his labs and chronic conditions. Doing overall well. Denies any problem with meds. Denies any new concerns. Pt is f/u with Manager S[employer]ability at [facility] due to elevated LFT and high bilirubin levels and they did bunch of testing and it all came back good. As per him, nothing concerning.Pt lives with his friend (Dheeraj) in and pt's brother (Adam) helps him with any appointment/medica l visits. Doing overall ok with his mood. Denies any mood swings/SI/HI. Pt is f/u with Psych for this and in on meds by them.Pt has TBI in 12/15 and since , his Lt side is weaker compared to Rt side and pt was seeing Neuro at [facility] for this. 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 Pt is in wheelchair since . Pierre Calvo MD [address], [facility] [address], [place], [address], [facility] [employer] 06/28/2023 17:16:11 10/20/2023 text/html Pt is here with his brother (Adam) for his annual exam. Doing overall well. Denies any problem with meds. Denies any new concern. Pt is f/u with Manager Sustainability at [facility] due to elevated LFT and high bilirubin levels and they did bunch of testing and it all came back good. As per him, nothing concerning.Pt lives with his friend (Dheeraj) in and pt's brother (Adam) helps him with any appointment/medica l visits. Doing overall ok with his mood. Denies any mood swings/SI/HI. Pt is f/u with Psych for this and in on meds by them.Pt has TBI in 12/15 and since , his Lt side is weaker compared to Rt side and pt was seeing Neuro at [facility] for this. 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 Pt is in wheelchair since . Pierre Calvo MD [address], [facility] [address], [place], [address], [employer] [facility] [employer] 10/20/2023 16:21:18
--- OUTSIDE RECORDS SUMMARY | 2024-04-06 14:32 | XMS_ITS | Patient Health Summary ---
Author Organization [facility] Address [address] [place] [address] Care Team Providers Care Plan Rep Name Role Phone Pierre Calvo MD Primary Care Provider [phone] Note from [facility],non-owned Affiliates and Associated Physician Practices is amultiple site organization consisting of ambulatory clinics and hospital sitesin [place], [place], [place] and [place]. This disclosure is being madepursuant to the Care Everywhere program and may not contain all information available regarding this patient. Last updated 17.[facility] Allergies No known active allergies Medications * Be aware that medications may not be up to date on this document. Alwaysverify current medications with the patient. * buPROPion XL 24hr (Wellbutrin-XL) 150 MG tablet bupropion HCl XL 150 mg 24 hr tablet, extended release TAKE 1 TABLET BY MOUTH EVERY DAY IN THE MORNING * carbamide peroxide (Debrox) 6.5 % otic solution Instill into both ears as needed * ergocalciferol (Drisdol) 1.25 MG (35408 UT) capsule ergocalciferol (vitamin D2) 1,250 mcg (50,000 unit) capsule * escitalopram (Lexapro) 20 MG tablet escitalopram 20 mg tablet TAKE 1 TABLET BY MOUTH EVERY DAY AT BEDTIME * famotidine (Pepcid) 20 MG tablet * polyethylene glycol 3350 (Miralax) 17 GM/SCOOP powder * onabotulinumtoxin A (Botox) 100 units injection(Started 02/08/2022) Inject 300 (three hundred) Units into muscle Every 90 days Reasons: Muscle Spasticity 3 refills by 02/08/2023 * atorvastatin (Lipitor) 20 MG tablet(Started 03/06/2023) Take 1 (one) tablet by mouth * baclofen (Lioresal) 5 MG TABS(Started 08/12/2023) TAKE 1 TABLET BY MOUTH TWICE DAILY NEEDED. MAY CAUSE DROWSINESS. REASONS: MUSCLE SPASMS 11 refills by 08/11/2024 * onabotulinumtoxin A (Botox) 100 units injection(Started 09/13/2023) Inject 300 (three hundred) Units into muscle Every 90 days Reasons: Muscle Spasticity 3 refills by 09/12/2024 Active Problems Problem Noted Date Diagnosed Date Dystrophia unguium 11/29/2022 01/07/2023 Left foot drop 11/29/2022 01/07/2023 Onychomycosis of toenail 10/18/2022 023 Vitamin D deficiency 10/14/2020 01/07/2023 Chronic idiopathic constipation 09/10/2020 01/07/2023 Gastroesophageal reflux disease without esophagi tis 09/10/2020 01/07/2023 Impaired mobility 09/10/2020 01/07/2023 Irritable bowel syndrome 09/10/2020 023 History of traumatic brain injury 05/07/2019 Hyperbilirubinemia 05/07/2019 Hyperlipidemia 05/07/2019 Muscle weakness 05/07/2019 Ex-smoker 05/06/2019 03/09/2023 Elevated liver enzymes 11/02/2018 Spasticity 08/23/2017 Depression 08/23/2017 Traumatic injury 08/22/2017 Periprosthetic fracture arou nd internal prosthetic left hip joint 07/15/2012 Incomplete emptying of bladder 04/04/2012 Late effect of head trauma, cognitive deficits 0 08/11/2011 Resolved Problems Problem Noted Date Diagnosed Date Resolved Date Bilateral impacted cerumen 05/06/2019 03/09/2023 0 03/23/2023 Immunizations * COVID PFIZER BIVALENT 12Y+ 30mcg/0.3ML(Given 03/04/2022) * HEP A VACCINE, ADULT(Given 05/24/2008, 11/17/2007) * HEP B VACCINE, ADULT 3 DOSE(Given 07/12/2008, 02/23/2008, 11/16/2007) * INFLUENZA VACCINE, QUADR. (FLUZONE; FLULAVAL; FLUARIX; AFLURIA QUADRIVALENT; 6MO+), 0.5 ML (IIV4)(Given 12/13/2022) * MMR VACCINE(Given 11/17/2007) * TD (AGE 7-ADULT)(Given 11/16/2007) * TDAP, HISTORIC VACCINE(Given 02/24/2021) Social History Tobacco Use Types Packs/Day Years [...] Mass Index 24.14 06/17/2023 3:34 PM CDT Procedures * COMPREHENSIVE METABOLIC PANEL(Performed 02/27/2024) Performed for Hyperbilirubinemia * CBC W AUTO DIFFERENTIAL(Performed 02/27/2024) Performed for Hyperbilirubinemia * RI CHEMODENERV ONE EXTREM 1-4 MUSCLES(Performed 09/13/2023) Performed for Muscle spasticity * RI CHEMODENERV ONE EXTREM 1-4 MUSCLES(Performed 06/09/2023) Performed for Muscle spasticity * RI CHEMODENERV ONE EXTREM 1-4 MUSCLES(Performed 03/10/2023) Performed for Muscle spasticity, Ankle contracture, left * AMARJIT BLOOD SINGLE PATTERN(Performed 03/10/2023) Performed for Elevated liver enzymes * AMARJIT HEP-2 IGG BY IFA(Performed 03/10/2023) Performed for Elevated liver enzymes * AMARJIT BLOOD SCREEN W/REFLEX TITER(Performed 03/10/2023) Performed for Elevated liver enzymes * IGG BLOOD(Performed 03/10/2023) Performed for Elevated liver enzymes * COMPREHENSIVE METABOLIC PANEL(Performed 03/10/2023) Performed for Elevated liver enzymes * AMARJIT BLOOD SINGLE PATTERN(Performed 01/07/2023) Performed for Elevated liver enzymes * AMARJIT HEP-2 IGG BY IFA(Performed 01/07/2023) Performed for Elevated liver enzymes * SMOOTH MUSCLE ANTIBODY W REFLEX TITER(Performed 01/07/2023) Performed for Elevated liver enzymes * MITOCHONDRIAL ANTIBODY SCREEN(Performed 01/07/2023) Performed for Elevated liver enzymes * AMARJIT BLOOD SCREEN W/REFLEX TITER(Performed 01/07/2023) Performed for Elevated liver enzymes * ALKALINE PHOSPHATASE BLOOD ISOENZYME PANEL(Performed 01/07/2023) Performed for Elevated liver enzymes * GGT(Performed 01/07/2023) Performed for Elevated liver enzymes * COMPREHENSIVE METABOLIC PANEL(Performed 01/07/2023) Performed for Elevated liver enzymes * CBC W AUTO DIFFERENTIAL(Performed 01/07/2023) Performed for Elevated liver enzymes * RI LIVER ELASTOGRAPHY(Performed 01/07/2023) Performed for Elevated liver enzymes * RI CHEMODENERV ONE EXTREM 1-4 MUSCLES(Performed 12/06/2022) Performed for Muscle spasticity * RI NDL EMG GDN CONJUNCT CHEMODNRVTJ(Performed 12/06/2022) Performed for Muscle spasticity * RI CHEMODENERV ONE EXTREM 1-4 MUSCLES(Performed 05/21/2022) Performed for Muscle spasticity * RI CHEMODENERV ONE EXTREM 1-4 MUSCLES(Performed 02/08/2022) Performed for Muscle spasticity * COMP MET PANEL (EXTERNAL RESULT ENTRY)(Performed 01/05/2021) * LAB RESULTS ORDER(Performed 11/25/2020) * CBC W DIFF (EXTERNAL RESULT ENTRY)(Performed 10/01/2020) * URINALYSIS (EXTERNAL RESULT ENTRY)(Performed 10/01/2020) * HEMOGLOBIN A1C (EXTERNAL RESULT ENTRY)(Performed 10/01/2020) * VITAMIN D HYDROXY (EXTERNAL RESULT)(Performed 10/01/2020) * COMP MET PANEL (EXTERNAL RESULT ENTRY)(Performed 10/01/2020) * TSH (EXTERNAL RESULT ENTRY)(Performed 10/01/2020) * MAGNESIUM (EXTERNAL RESULT ENTRY)(Performed 10/01/2020) * LIPID PROFILE (EXTERAL RESULT ENTRY)(Performed 10/01/2020) * US ABDOMEN LIMITED(Performed 09/24/2019) Performed for Elevated liver enzymes * CBC W DIFF (EXTERNAL RESULT ENTRY)(Performed 09/21/2019) * COMP MET PANEL (EXTERNAL RESULT ENTRY)(Performed 09/21/2019) * LIPID PROFILE (EXTERAL RESULT ENTRY)(Performed 09/21/2019) * MAGNESIUM (EXTERNAL RESULT ENTRY)(Performed 09/21/2019) * TSH (EXTERNAL RESULT ENTRY)(Performed 09/21/2019) * PSA TOTAL (EXTERNAL RESULT ENTRY)(Performed 09/21/2019) * VITAMIN D HYDROXY (EXTERNAL RESULT)(Performed 09/21/2019) * HEMOGLOBIN A1C (EXTERNAL RESULT ENTRY)(Performed 09/21/2019) * XR PELVIS W LEFT HIP 2VW(Performed 01/23/2019) Performed for Pain of left hip joint * RI LIVER ELASTOGRAPHY(Performed 01/10/2019) Performed for Elevated liver enzymes * TSH (EXTERNAL RESULT ENTRY)(Performed 01/09/2019) * T4 FREE (EXTERNAL RESULT ENTRY)(Performed 01/09/2019) * LIPID PROFILE (EXTERAL RESULT ENTRY)(Performed 01/09/2019) * CBC W DIFF (EXTERNAL RESULT ENTRY)(Performed 01/09/2019) * COMP MET PANEL (EXTERNAL RESULT ENTRY)(Performed 01/09/2019) * HEPATITIS C RNA QUANTITATIVE(Performed 11/02/2018) Performed for Elevated liver enzymes * HEPATITIS A ANTIBODY(Performed 11/02/2018) Performed for Elevated liver enzymes * HEPATITIS B CORE ANTIBODY TOTAL(Performed 11/02/2018) Performed for Elevated liver enzymes * HEPATITIS B SURFACE ANTIBODY(Performed 11/02/2018) Performed for Elevated liver enzymes * HEPATITIS B SURFACE ANTIGEN W RFLX CONFIRMATION(Performed 11/02/2018) Performed for Elevated liver enzymes * UIAYB-2-BBNDLPUGETD BLOOD PHENOTYPING PANEL(Performed 11/02/2018) Performed for Elevated liver enzymes * [id number]-7-[id number] BLOOD(Performed 11/02/2018) Performed for Elevated liver enzymes * CERULOPLASMIN(Performed 11/02/2018) Performed for Elevated liver enzymes * MITOCHONDRIAL ANTIBODY SCREEN(Performed 11/02/2018) Performed for Elevated liver enzymes * SMOOTH MUSCLE ANTIBODY(Performed 11/02/2018) Performed for Elevated liver enzymes * AMARJIT BLOOD SCREEN W/REFLEX TITER(Performed 11/02/2018) Performed for Elevated liver enzymes * PT-INR SLH(Performed 11/02/2018) Performed for Elevated liver enzymes * COMPREHENSIVE METABOLIC PANEL(Performed 11/02/2018) Performed for Elevated liver enzymes * CBC W AUTO DIFFERENTIAL(Performed 11/02/2018) Performed for Elevated liver enzymes * CULTURE URINE(Performed 09/04/2013) * XR PELVIS W LEFT HIP 2VW(Performed 08/01/2012) * CT HIP LEFT WO CONTRAST(Performed 07/15/2012) * XR PELVIS W LEFT HIP 2VW(Performed 07/15/2012) * XR FEMUR LEFT 2VW(Performed 07/15/2012) * XR PELVIS 1 OR 2VW(Performed 07/15/2012) * XR PELVIS W LEFT HIP 2VW(Performed 01/04/2012) * XR PELVIS W LEFT HIP 2VW(Performed 10/05/2011) * XR PELVIS W LEFT HIP 2VW(Performed 08/24/2011) * XR PELVIS 1 OR 2VW(Performed 08/24/2011) * LAB MICROBIOLOGY - HPF HISTORICAL(Performed 07/06/2011) * LAB MICROBIOLOGY - HPF HISTORICAL(Performed 07/01/2011) * LAB MICROBIOLOGY - HPF HISTORICAL(Performed 01/15/2011) * LAB MICROBIOLOGY - HPF HISTORICAL(Performed 01/14/2011) * LAB MICROBIOLOGY - HPF HISTORICAL(Performed 01/13/2011) * LAB MICROBIOLOGY - HPF HISTORICAL(Performed 01/06/2011) * PATHOLOGY REPORTS - HPF HISTORICAL(Performed 01/05/2011) * LAB MICROBIOLOGY - HPF HISTORICAL(Performed 01/04/2011) * LAB MICROBIOLOGY - HPF HISTORICAL(Performed 01/02/2011) Results * (ABNORMAL) CBC WITH DIFFERENTIAL (02/27/2024 12:18 PM MACHINIST JOB SETTER) Only the most recent of3 resultswithin the time period is included. WBC 6.9 4.0 - 10.7 x10E9/L 02/27/2024 1:28 PM MACHINIST JOB SETTER [facility] RBC Count 4.85 4.30 - 5.80 x10E12/L 02/27/2024 1:28 PM [facility] Hemoglobin 14.6 13.3 - 17.5 g/dL 02/27/2024 1:28 PM [facility] Hematocrit 43.0 38.7 - 51.1 % 02/27/2024 1:28 PM MACHINIST JOB SETTER [facility] MCV 88.7 80.0 - 98.0 fL 02/27/2024 1:28 PM [facility] MCH 30.1 26.7 - 33.6 pg 02/27/2024 1:28 PM [facility] MCHC 34.0 31.7 - 36.3 g/dL 02/27/2024 1:28 PM [facility] RDW-CV 12.4 11.3 - 14.8 % 02/27/2024 1:28 PM [facility] Platelet Count 226 150 - 420 x10E9/L 02/27/2024 1:28 PM [facility] MPV 12.1(H) 7.8 - 11.4 fL 02/27/2024 1:28 PM [facility] Neutrophil % 68.4 41.0 - 74.0 % 02/27/2024 1:28 PM [facility] Lymphocyte % 20.4 17.0 - 47.0 % 02/27/2024 1:28 PM [facility] Monocyte % 6.5 3.0 - 11.0 % 02/27/2024 1:28 PM [facility] Eosinophil % 4.2 0.0 - 7.0 % 02/27/2024 1:28 PM [facility] Basophil % 0.4 0.0 - 1.6 % 02/27/2024 1:28 PM [facility] Immature Granulocytes % 0.1 0.0 - 1.0 % 02/27/2024 1:28 PM [facility] Neutrophil Absolute 4.72 1.60 - 7.50 x10E9/L 02/27/2024 1:28 PM [facility] Lymphocyte Absolute 1.41 1.00 - 4.40 x10E9/L 02/27/2024 1:28 PM [facility] Monocyte Absolute 0.45 0.15 - 1.00 x10E9/L 02/27/2024 1:28 PM [facility] Eosinophil Absolute 0.29 0.00 - 0.60 x10E9/L 02/27/2024 1:28 PM [facility] Basophil Absolute 0.03 0.00 - 0.13 x10E9/L 02/27/2024 1:28 PM [facility] Blood BLOOD SPECIMEN / Unknown Lab Venipuncture / Unknown 02/27/2024 12:18 PM MACHINIST JOB SETTER 02/27/2024 1:02 PM [facility] Lisa Huang RN LACTATION-STEM ROLLER LAB - HEMATO LOGY ORDERABLES [facility] [address] [place] [address], [facility] [phone] * (ABNORMAL) COMPREHENSIVE METABOLIC PANEL (02/27/2024 12:18 PM MACHINIST JOB SETTER) Only the most recent of4 resultswithin the time period is included. BUN 14 7 - 26 mg/dL 02/27/2024 2:02 PM [facility] Creatinine 1.11 0.71 - 1.16 mg/dL 02/27/2024 2:02 PM [facility] Sodium 140 136 - 145 mmol/L 02/27/2024 2:02 PM [facility] Potassium 4.1 3.5 - 4.5 mmol/L 02/27/2024 2:02 PM [facility] Chloride 106 98 - 107 mmol/L 02/27/2024 2:02 PM [facility] CO2 26 22 - 29 mmol/L 02/27/2024 2:02 PM [facility] Glucose 97 70 - 99 mg/dL 02/27/2024 2:02 PM [facility] Calcium 8.9 8.4 - 10.2 mg/dL 02/27/2024 2:02 PM [facility] Protein Total 7.3 6.0 - 8.3 g/dL 02/27/2024 2:02 PM [facility] Albumin 4.0 3.4 - 5.0 g/dL 02/27/2024 2:02 PM [facility] Bilirubin Total 1.3(H) 0.2 - 1.2 mg/dL 02/27/2024 2:02 PM [facility] Alkaline Phosphatase 148 40 - 150 U/L 02/27/2024 2:02 PM [facility] ALT 49 5 - 55 U/L 02/27/2024 2:02 PM [facility] AST 33 5 - 34 U/L 02/27/2024 2:02 PM [facility] Anion Gap 8 6 - 16 02/27/2024 2:02 PM [facility] BUN/Creatinine Ratio 13 7 - 23 02/27/2024 2:02 PM [facility] Osmolality Calculated 290 275 - 295 mOsm/kg 02/27/2024 2:02 PM [facility] Albumin/Globulin Ratio 1.2 1.1 - 2.3 02/27/2024 2:02 PM [facility] eGFR by CKD-EPI 75(L) >=90 mL/min/1.7 3 m2 02/27/2024 2:02 PM [facility] Blood BLOOD SPECIMEN / Unknown Lab Venipuncture / Unknown 02/27/2024 12:18 PM MACHINIST JOB SETTER 02/27/2024 1:04 PM MACHINIST JOB SETTER Lisa Huang RN LACTATION-STEM ROLLER LAB - CHEMIS TRY ORDERABLES [facility] [address] [place] [address], [facility] [phone] * RI CHEMODENERV ONE EXTREM 1-4 MUSCLES (09/13/2023 1:05 PM CDT) Narrative Sarah Smith MD - 09/13/2023 1:05 PM CDT Sarah Smith MD ? 09/13/2023 ??1:06 PM Please see procedure notes Sarah Nava MD PROCEDURE/MIGUEL ANGEL R SURGICAL ORDERABLES * RI CHEMODENERV ONE EXTREM 1-4 MUSCLES (06/09/2023 3:41 PM CDT) Narrative Sarah Smith MD - 06/09/2023 3:41 PM CDT Sarah Smith MD ? 06/09/2023 ??3:42 PM Please see procedure notes Sarah Nava MD PROCEDURE/MIGUEL ANGEL R SURGICAL ORDERABLES * RI CHEMODENERV ONE EXTREM 1-4 MUSCLES (03/10/2023 2:41 PM MACHINIST JOB SETTER) Narrative Sarah Smith MD - 03/10/2023 2:41 PM MACHINIST JOB SETTER Sarah Smith MD ? 03/10/2023 ??2:42 PM Please see procedure notes Sarah Nava MD PROCEDURE/MIGUEL ANGEL R SURGICAL ORDERABLES * (ABNORMAL) AMARJIT BLOOD SINGLE PATTERN (03/10/2023 12:39 PM MACHINIST JOB SETTER) Only the most recent of2 resultswithin the time period is included. AMARJIT Pattern Homogeneo us(A) 03/12/2023 11:26 PM MACHINIST JOB SETTER [facility] ([facility]) AMARJIT Titer 1:160(A) 03/12/2023 11:26 PM MACHINIST JOB SETTER [employer] ([facility]) Comment: Performed By: [facility] [address] [place] [address] Director Of Technology: Bruno Brown MD, PhD CLIA Number: [id number] Blood BLOOD SPECIMEN / Unknown Lab Venipuncture / Unknown 03/10/2023 12:39 PM MACHINIST JOB SETTER 03/10/2023 1:06 PM MACHINIST JOB SETTER Lisa Huang RN LACTATION-STEM ROLLER LAB - CHEMIS TRY ORDERABLES [facility]) [address] [place] [address], [facility] * (ABNORMAL) AMARJIT HEP-2 IGG BY IFA (03/10/2023 12:39 PM MACHINIST JOB SETTER) Only the most recent of2 resultswithin the time period is included. AMARJIT HEp-2 IgG Detected (H) <1:80 03/12/2023 11:26 PM MACHINIST JOB SETTER [employer] ([facility]) AMARJIT Interpretive Comment See Note 03/12/2023 11:26 PM MACHINIST JOB SETTER [facility] ([facility]) Comment: Homogeneous Pattern Clinical associations: SLE, drug-induced SLE or ANN. Main autoantibodies: Anti-dsDNA, anti-histones or anti-chromatin (anti-nucleosome) List of Abbreviations Antisynthetase syndrome (ARS), chronic active hepatitis (CAH), ?? inflammatory ??myopathies (IM) [dermatomyositis (DM), polymyositis (PM), necrotizing autoimmune myopathy (NAM)', interstitial lung disease (ILD), juvenile idiopathic arthritis (ANN), mixed connective tissue disease (MCTD), primary biliary cholangitis (PBC), rheumatoid arthritis (RA), systemic autoimmune rheumatic diseases (SARD), Sjogren syndrome (SjS), systemic lupus erythematosus (SLE), systemic sclerosis (SSc), undifferentiated connective tissue disease (UCTD). INTERPRETIVE INFORMATION: AMARJIT Interpretive Comment Presence of antinuclear antibodies (AMARJIT) is a hallmark feature of systemic autoimmune rheumatic diseases (SARD). However, AMARJIT lacks diagnostic specificity and is associated with a variety of diseases (cancers, autoimmune, infectious, and inflammatory conditions) ??and may also occur in healthy individuals in varying prevalence. The lack of diagnostic specificity requires confirmation of positive AMARJIT by more specific serologic tests. AMARJIT (nuclear reactivity) positive patterns reported include centromere, homogeneous, nuclear dots, nucleolar, or speckled. AMARJIT (cytoplasmic reactivity) positive patterns reported include reticular/AMA, discrete/GW body-like, polar/golgi-like, cytoplasmic speckled or rods and rings. All positive patterns are reported to endpoint titers (1:2560). Reported patterns may help guide differential diagnosis, although they may not be specific for individual antibodies or diseases. Mitotic staining patterns not reported. ??Negative results do not necessarily rule out SARD. Performed By: [facility] [address] [place] [address] Director Of Technology: Bruno Brown MD, PhD CLIA Number: [id number] Blood BLOOD SPECIMEN / Unknown Lab Venipuncture / Unknown 03/10/2023 12:39 PM MACHINIST JOB SETTER 03/10/2023 1:06 PM MACHINIST JOB SETTER Lisa Huang RN LACTATION-STEM ROLLER LAB - SEROLO GY ORDERABLES [employer] ([facility]) [address] [place] [address], [facility] * (ABNORMAL) AMARJIT BLOOD SCREEN W/REFLEX TITER (03/10/2023 12:39 PM MACHINIST JOB SETTER) Only the most recent of3 resultswithin the time period is included. Pathologist [facility] AMARJIT IgG Detected (A) None Detected 03/12/2023 8:35 AM MACHINIST JOB SETTER [facility] ([facility]) Comment: Antibodies to Anti-Nuclear Antibodies (AMARJIT) detected. Additional testing to follow. INTERPRETIVE INFORMATION: Anti-Nuclear Antibodies (AMARJIT), IgG by MAYKEL Antinuclear Antibodies (AMARJIT), IgG by MAYKEL: AMARJIT specimens are screened using enzyme-linked immunosorbent assay (MAYKEL) methodology. All MAYKEL results reported as Detected are further tested by indirect fluorescent assay (IFA) using HEp-2 substrate with an IgG-specific conjugate. The AMARJIT MAYKEL screen is designed to detect antibodies against dsDNA, histones, SS-A (Ro), SS-B (La), Kowalski, Kowalski/MAIL SORTING SUPERVISOR, Scl-70, Vianey-1, centromeric proteins, other antigens extracted from the HEp-2 cell nucleus. AMARJIT MAYKEL assays have been reported to have lower sensitivities than AMARJIT IFA for systemic autoimmune rheumatic diseases (SARD). Negative results do not necessarily rule out SARD. Performed By: [facility] [address] [place] [address] Director Of Technology: Bruno Brown MD, PhD CLIA Number: [id number] Blood BLOOD SPECIMEN / Unknown Lab Venipuncture / Unknown 03/10/2023 12:39 PM MACHINIST JOB SETTER 03/10/2023 1:06 PM MACHINIST JOB SETTER Lisa Huang APRN-STEM ROLLER LAB - CHEMIS TRY ORDERABLES [facility]) [address] [place] [address] * IGG BLOOD (03/10/2023 12:39 PM MACHINIST JOB SETTER) IgG 1,301 767 - 1,590 mg/dL 03/10/2023 1:41 PM MACHINIST JOB SETTER [facility] Blood BLOOD SPECIMEN / Unknown Lab Venipuncture / Unknown 03/10/2023 12:39 PM MACHINIST JOB SETTER 03/10/2023 1:28 PM MACHINIST JOB SETTER Lisa Huang RN LACTATION-STEM ROLLER LAB - CHEMIS TRY ORDERABLES [address] [address], [place] [phone] * SMOOTH MUSCLE ANTIBODY W REFLEX TITER (01/07/2023 3:13 PM CDT) F-Actin Antibody IgG 5 0 - 19 Units 01/09/2023 12:08 AM CDT [facility] ([facility]) Comment: If F-Actin (Smooth Muscle) Antibody, IgG is negative, the Smooth Muscle Antibody titer by IFA is not performed. REFERENCE INTERVAL: F-Actin (Smooth Muscle) Antibody, IgG by ?MAYKEL ??19 Units or less ....... Negative ??20 - 30 Units .......... Weak Positive-Suggest repeat ? testing in two to three weeks ? with fresh specimen. ??31 Units or greater..... Positive-Suggestive of ? autoimmune hepatitis type 1 ? or chronic active hepatitis. F-actin IgG antibodies have been shown to have increased sensitivity for autoimmune hepatitis (AIH) but lower specificity than smooth muscle antibodies (SMA). F-actin IgG antibodies can also be seen in SMA-negative disease controls (non-AIH), especially in patients with primary biliary cirrhosis and chronic hepatitis C infections. Some patients with AIH may be SMA-positive but negative for F-actin IgG. Consider testing for SMA by IFA if suspicion for AIH is strong. Performed By: [facility] [address] [place] [id number] Director Of Technology: Bruno Brown MD, PhD CLIA Number: [id number] Blood BLOOD SPECIMEN / Unknown Lab Venipuncture / Unknown 01/07/2023 3:13 PM CDT 01/07/2023 3:20 PM CDT Lisa Huang RN LACTATION-STEM ROLLER LAB - SEROLO GY ORDERABLES [facility] ([facility]) [address] * MITOCHONDRIAL ANTIBODY SCREEN (01/07/2023 3:13 PM CDT) Only the most recent of2 resultswithin the time period is included. Mitochondrial M2 Antibody 2.3 0.0 - 24.9 Units 01/08/2023 11:48 PM CDT [facility] ([facility]) Comment: REFERENCE INTERVAL: Mitochondrial (M2) Antibody, IgG ?20.0 Units or less ......... Negative ??20.1 - 24.9 Units........... Equivocal ??25.0 Units or greater....... Positive Anti-mitochondrial antibodies (AMA) are thought to be present in 90-95% of patients with primary biliary cholangitis (PBC). However, the frequency of detected antibodies may be cohort or assay dependent, as lower sensitivities have been reported. Not all PBC patients are positive for AMA; some patients may be positive for SP100 and/or GP210 antibodies. A negative result does not rule out PBC. Performed By: [facility] [address] [place] [address] Director Of Technology: Bruno Brown MD, PhD CLIA Number: [id number] Blood BLOOD SPECIMEN / Unknown Lab Venipuncture / Unknown 01/07/2023 3:13 PM CDT 01/07/2023 3:20 PM CDT Lisa Huang APRN-[facility] LAB - CHEMIS TRY ORDERABLES Performing Organization Address City/[facility]/ZIP Co de Phone Number [facility] ([facility]) [address] * (ABNORMAL) ALKALINE PHOSPHATASE BLOOD ISOENZYME PANEL (01/07/2023 3:13 PM CDT) Alkaline Phosphatase Isoenzymes Bone 33 0 - 55 U/L 01/10/2023 3:01 AM [employer]ACH[employer] ([facility]) Alkaline Phosphatase Isoenzymes 137(H) 40 - 120 U/L 01/10/2023 3:01 AM [facility] ([facility]) Alkaline Phosphatase Isoenzymes Liver 104(H) 0 - 94 U/L 01/10/2023 3:01 AM [facility] ([facility]) Comment: INTERPRETIVE INFORMATION: Alk-Phosphatase Liver Calc Bone Specific Alkaline Phosphatase (1417804) and 5'-nucleotidase ([id number]) may be useful in identifying disorders of bone and liver, respectively. Alkaline Phosphatase Isoenzymes Other 0 U/L 01/10/2023 3:01 AM [facility] ([facility]) Comment: Performed By: [employer] [address] [place] [address] Director Of Technology: Bruno Brown MD, PhD CLIA Number: [id number] Blood BLOOD SPECIMEN / Unknown Lab Venipuncture / Unknown 01/07/2023 3:13 PM CDT 01/07/2023 3:20 PM CDT Lisa Huang RN LACTATION-STEM ROLLER LAB - CHEMIS TRY ORDERABLES Performing Organization Address City/[facility]/ZIP Co de Phone Number [facility]) [address] [place] [phone] [place] [address] * GGT (01/07/2023 3:13 PM CDT) GGT 11 9 - 64 Units/L 01/07/2023 3:51 PM CDT [facility] Blood BLOOD SPECIMEN / Unknown Lab Venipuncture / Unknown 01/07/2023 3:13 PM CDT 01/07/2023 3:23 PM CDT Lisa Huang RN LACTATION-STEM ROLLER LAB - CHEMIS TRY ORDERABLES [facility] [address] [place] [address], [facility] [phone] * RI LIVER ELASTOGRAPHY (01/07/2023 1:49 PM CDT) Narrative Lashaun Lopez RN - 01/07/2023 1:49 PM CDT Lashaun Lopez RN ? 01/07/2023 ??2:50 PM Diagnosis: Elevated liver enzymes RN verified patient is NPO for prior 3 hours. Procedure explained. Date of Exam: 01/07/2023 Liver Stiffness: (LSM, kPa) median: ??6.2 IQR/Median% (ideally < 30%): ??13% CAP (controlled attenuation parameter): ??189 Technical Difficulty: None Ordering Provider: Lisa Huang APRN-BAKARI Phone Fax Fibroscan interpretation: I have personally reviewed the Fibroscan report and associated tracings. The calculated Liver Stiffness Measurement (LSM, kPa) indicates that: The probability of advanced liver fibrosis is: low. The loss of ultrasound signal, (controlled attenuation parameter, CAP [dB/m]), indicates that the probability of hepatic steatosis is: low. Phoenix Woodall MD The following criteria are used to indicate the probability of advanced (stage 3-4) fibrosis: < 7.0 kPa: low 7.0-8.9 kPa: low to moderate 9.0-14.9 kPa: moderate 15-20 kPa: high > 20 kPa: very high Liver stiffness > 20 kPa is also associated with a high probability of complications of portal hypertension including varices and ascites. Liver stiffness > 50 kPa is associated with a high risk of variceal bleeding. These interpretations are based on the following published data: Kulwinder PJ, Mohsen M, Debra M, et al. Accuracy of FibroScan controlled attenuation parameter and liver stiffness measurement in assessing steatosis and fibrosis in patients with nonalcoholic fatty liver disease. Gastroenterology 2019;156:8139-2511. Alisa STEWART, Silvino R, Van Hiram HINDS, et al. Vibration-controlled transient elastography to assess fibrosis and steatosis in patients with nonalcoholic fatty liver disease. Clin Gastroenterol Hepatol 2019;17:156-163. Note that scores have been developed that incorporate the Fibroscan liver stiffness measurement from large cohorts of patients with liver biopsies to further refine the ability of Fibroscan to identify patients ??with VAZQUEZ and advanced fibrosis. These include the FAST (Fibroscan-AST) score (Madisyn, 2021) and the Agile3+ and Agile4 scores (Liudmila, 2022). Madisyn BROWN, Van Natdimitris ML, Barron Morales, Varghese A, et al. Validation of the accuracy of the FAST score for detecting patients with at-risk nonalcoholic steatohepatitis (VAZQUEZ) in a [place] cohort and comparison to other non-invasive algorithms. PLoS ONE (2021) 17: [id number]. Liudmila AJ, Kathleen J, Rachel ZM, et al. Enhanced diagnosis of advanced fibrosis and cirrhosis in individuals with NAFLD using FibroScan-based Agile scores. J Hepatol (2022) 78: 247-259. Fibroscan LSM can also be used with laboratory parameters without formulas to assess prognosis. According to the Baveno-VII criteria ([place], 202), Fibroscan LSM ?15 kPa plus a platelet count of ?121x159/L rules out clinically significant portal hypertension (sensitivity and negative predictive value >90%) in patients with compensated advanced chronic liver disease. Trinidad R, Victor Hugo J, Jose G, Cali T, Margaret Munguia on behalf of the Baveno VII Faculty. Baveno VII--Renewing consensus in portal hypertension. J Hepatol (2021) 76: 959-974 Assessing the likelihood of advanced fibrosis in patients with indeterminate liver stiffness measurement (LSM) by Fibroscan (e.g., 8-15 kPa) can be improved by also calculating the FIB-4 score (Romeluke et al. Hepatology Communications 2019;3:1671-5951) or NAFLD Fibrosis score (Rhoades et al. Clinical Gastroenterology and Hepatology 2019;17:5928-7032 using ??routine clinical data. Note: 1. Fibroscan cannot reliably identify earlier stages of fibrosis (ie distinguish F0 from F1 and F2) and thus a histologic stage cannot be predicted from the Fibroscan reading. 2. Liver stiffness can be increased by factors other than fibrosis including passive congestion, infiltrative processes, active alcoholism, recent moderate alcohol consumption in the 2 weeks before the exam, ??biliary obstruction and marked inflammation. The interpretation of the Fibroscan result provided above may not have taken such clinical factors into account. Disease etiology also influences Fibroscan cutoff values for fibrosis stages and the following cutoffs have been proposed (Ritesh et al, Clin Gastro Hepatol 2015; 13:27-36): Cutoffs for Stage 3 and Stage 4 fibrosis respectively: Hepatitis B: >9 and >11.7 kPa Hepatitis C: >9.5 and >12.5 kPa HCV-HIV: >11 and >14 kPa Cholestatic liver diseases: >10 and >17.9 kPa NAFLD/VAZQUEZ: >10 and >14 kPa CAP estimates of steatosis: normal <200 dB/m mild 200 to 250 dB/m moderate 250-290 dB/m substantial > 290 dB/m (Note that Fibroscan is not a quantitative measure of liver fat.) These criteria are estimates and may change as additional supporting data becomes available. (This additional interpretive data was last updated 07/10/22.) [email or web address] Lisa Huang RN LACTATION-STEM ROLLER PROCEDURE/CA NOR SURGICAL ORDERABLES * RI NDL EMG GDN CONJUNCT CHEMODNRVTJ, RI CHEMODENERV ONE EXTREM 1-4 MUSCLES (12/06/2022 10:11 AM CDT) Sarah Francis MD - 12/06/2022 10:11 AM CDT Sarah Smith MD ? 12/06/2022 10:13 AM Please see procedure notes Sarah Nava MD PROCEDURE/MIGUEL ANGEL R SURGICAL ORDERABLES * RI CHEMODENERV ONE EXTREM 1-4 MUSCLES (05/21/2022 9:51 AM CDT) Sarah Francis MD - 05/21/2022 9:51 AM CDT Sarah Smith MD ? 05/21/2022 ??9:54 AM Please see procedure notes Sarah Nava MD PROCEDURE/MIGUEL ANGEL R SURGICAL ORDERABLES * RI CHEMODENERV ONE EXTREM 1-4 MUSCLES (02/08/2022 10:12 AM MACHINIST JOB SETTER) Sarah Francis MD - 02/08/2022 10:12 AM MACHINIST JOB SETTER Sarah Smith MD ? 02/08/2022 10:15 AM Please see procedure notes Sarah Nava MD PROCEDURE/MIGUEL ANGEL R SURGICAL ORDERABLES * (ABNORMAL) COMP MET PANEL (EXTERNAL RESULT ENTRY) (01/05/2021) Only the most recent of4 resultswithin the time period is included. Glucose (EXTERNAL) 95 mg/dL [facility] Sodium (EXTERNAL RESULT) 142 mmol/L [facility] Potassium (EXTERNAL RESULT) 4.7 mmol/L [facility] Chloride (EXTERNAL RESULT) 105 mmol/L [facility] CO2 (EXTERNAL) 28 mmol/L [facility] Calcium (EXTERNAL RESULT) 9.3 mg/dL [facility] Anion Gap (EXTERNAL RESULT) 13.7(A) 14 - 22 mmol/L [facility] BUN (EXTERNAL RESULT) 15 mg/dL [facility] Creatinine (EXTERNAL RESULT) 0.79 mg/dl [facility] Alkaline Phosphatase (EXTERNAL RESULT) 103 U/L [facility] ALT (EXTERNAL RESULT) 20 U/L [facility] AST (EXTERNAL RESULT) 28 U/L [facility] Protein Total (EXTERNAL RESULT) 7.7 gm/dL [facility] Albumin (EXTERNAL RESULT) 4.3 gm/dL [facility] Bilirubin Total (EXTERNAL RESULT) 2.60(A) 0.20 - 1.30 mg/dL [facility] eGFR MDRD (EXTERNAL RESULT) [facility] eGFR (EXTERNAL) [facility] Blood BLOOD SPECIMEN / Unknown 01/05/2021 Historical Provider LAB - CHEMISTRY O RDERABLES [facility] [address] [place] [address], [facility] [phone] * LAB RESULTS ORDER (11/25/2020 10:05 AM CDT) Narrative 11/25/2020 10:05 AM CDT Ordered by an unspecified provider. Scanned Document LAB - THERAPEUTIC DR KHAN MONITORING ORDERABLES * CBC W DIFF (EXTERNAL RESULT ENTRY) (10/01/2020) Only the most recent of3 resultswithin the time period is included. WBC (EXTERNAL RESULT) 4.4 10^3/ul Hemoglobin (EXTERNAL RESULT) 15.0 g/dl Hematocrit (EXTERNAL RESULT) 43.5 % Platelets (EXTERNAL RESULT) 230 10^3/ul Neutrophil Absolute (EXTERNAL RESULT) 2.56 10^3/ul Blood BLOOD SPECIMEN / Unknown 10/01/2020 Historical Provider LAB - HEMATOLOGY ORDERABLES * MAGNESIUM (EXTERNAL RESULT ENTRY) (10/01/2020) Only the most recent of2 resultswithin the time period is included. [facility] Magnesium (EXTERNAL RESULT) 2.1 mg/dl Blood BLOOD SPECIMEN / Unknown 10/01/2020 Historical Provider LAB - CHEMISTRY O RDERABLES * (ABNORMAL) URINALYSIS (EXTERNAL RESULT ENTRY) (10/01/2020) [facility] pH UA (EXTERNAL RESULT) 5.5 Specific [place] Urine (EXTERNAL RESULT) 1.037(H) 1.001 - 1.030 Protein UA (EXTERNAL RESULT) 70(A) neg Blood UA (EXTERNAL RESULT) neg Nitrite UA (EXTERNAL RESULT) neg RBC UA (EXTERNAL RESULT) WBC UA (EXTERNAL RESULT) Leukocyte Esterase (EXTERNAL RESULT) neg Bacteria UA (EXTERNAL RESULT) occasional (A) Urine URINE / Unknown 10/01/2020 Historical Provider LAB - CHEMISTRY O RDERABLES * VITAMIN D HYDROXY (EXTERNAL RESULT) (10/01/2020) Only the most recent of2 resultswithin the time period is included. [facility] Vitamin D Hydroxy (External Result) 30.2 Blood 10/01/2020 Historical Provider LAB - CHEMISTRY O RDERABLES * (ABNORMAL) LIPID PROFILE (EXTERAL RESULT ENTRY) (10/01/2020) Only the most recent of3 resultswithin the time period is included. [facility] Cholesterol (EXTERNAL RESULT) 236(H) 140 - 199 mg/dL Triglycerides (EXTERNAL RESULT) 71 mg/dL HDL (EXTERNAL RESULT) 65 mg/dL LDL (EXTERNAL RESULT) 157(H) 0 - 130 mg/dL VLDL (EXTERNAL RESULT) Chol HDL Ratio (External Result) Blood BLOOD SPECIMEN / Unknown 10/01/2020 Historical Provider LAB - CHEMISTRY O RDERABLES * TSH (EXTERNAL RESULT ENTRY) (10/01/2020) Only the most recent of3 resultswithin the time period is included. TSH (EXTERNAL RESULT) 1.090 uIU/mL Blood BLOOD SPECIMEN / Unknown 10/01/2020 Historical Provider LAB - CHEMISTRY O RDERABLES * HEMOGLOBIN A1C (EXTERNAL RESULT ENTRY) (10/01/2020) Only the most recent of2 resultswithin the time period is included. Hemoglobin A1c (EXTERNAL RESULT) 4.7 % Blood BLOOD SPECIMEN / Unknown 10/01/2020 Historical Provider LAB - CHEMISTRY O RDERABLES * US ABDOMEN LIMITED (09/24/2019 11:54 AM CDT) Anatomical Region Laterality Modality Abdomen Ultrasound 09/24/2019 1:12 PM CDT Impressions 09/24/2019 2:20 PM CDT IMPRESSION: 1. No discrete hepatic lesion or intrahepatic biliary dilation. Patent hepatic vasculature. 2. Cholelithiasis without evidence of acute cholecystitis. Dictated by Luis Colon MD (resident). I, Dr. KERRY LARSON have personally reviewed and interpreted this examination/study. This report was electronically signed by KERRY LARSON ??on 09/24/2019 2:20 PM . Narrative 09/24/2019 2:20 PM CDT EXAMINATION: Limited abdominal sonogram HISTORY: R74.8: Elevated liver enzymes COMPARISON: None FINDINGS: The liver is normal in echotexture, echogenicity, and surface contour. No discrete hepatic mass or intrahepatic biliary dilation is seen. Color Doppler evaluation demonstrates patency of the hepatic and portal veins. Gallstones are seen within the gallbladder without pericholecystic fluid. The gallbladder wall is normal in thickness, measuring 3 mm. Sonographic Spencer's sign is negative. The common bile duct is nondilated, measuring 5 mm. The right kidney measures 9.8 x 4.5 x 4.1 cm. Limited views of the right kidney reveal no evidence of nephrolithiasis or hydronephrosis. The spleen measures 10.4 cm in length. The visible pancreas is normal in echogenicity. No ascites is present. Procedure Note Kerry Larson MD - 09/24/2019 EXAMINATION: Limited abdominal sonogram HISTORY: R74.8: Elevated liver enzymes COMPARISON: None FINDINGS: The liver is normal in echotexture, echogenicity, and surface contour.No discrete hepatic mass or intrahepatic biliary dilation is seen. Color Doppler evaluation demonstrates patency of the hepatic and portal veins. Gallstones are seen within the gallbladder without pericholecysticfluid. The gallbladder wall is normal in thickness, measuring 3 mm. Sonographic Spencer's sign is negative. The common bile duct is nondilated, measuring5 mm. The right kidney measures 9.8 x 4.5 x 4.1 cm. Limited views of the right kidney reveal no evidence of nephrolithiasis or hydronephrosis. Thespleen measures 10.4 cm in length. The visible pancreas is normal in echogenicity. No ascites is present. IMPRESSION: 1. No discrete hepatic lesion or intrahepatic biliary dilation. Patent hepatic vasculature. 2. Cholelithiasis without evidence of acute cholecystitis. Dictated by Luis Colon MD (resident). I, Dr. KERRY LARSON have personally reviewed and interpreted this examination/study. This report was electronically signed by KERRY LARSON on 09/24/2019 2:20PM . Lisa Huang RN LACTATION-STEM ROLLER US ORDERABLE S * PSA TOTAL (EXTERNAL RESULT ENTRY) (09/21/2019) PSA Total (EXTERNAL RESULT) 0.68 0.00 - 4.00 NG/ML Blood BLOOD SPECIMEN / Unknown 09/21/2019 Historical Provider LAB - CHEMISTRY O RDERABLES * XR PELVIS W LEFT HIP 2VW (01/23/2019 3:50 PM MACHINIST JOB SETTER) Only the most recent of6 resultswithin the time period is included. Anatomical Region Laterality Modality Radiographic Migdalia ging 01/24/2019 7:20 AM MACHINIST JOB SETTER Impressions 01/24/2019 7:21 AM MACHINIST JOB SETTER IMPRESSION: Left hip hemiarthroplasty. This report was electronically signed by ROOSEVELT ISAACS MD ??on 01/24/2019 7:21 AM . Narrative 01/24/2019 7:21 AM MACHINIST JOB SETTER Exam: ??XR PELVIS W LEFT HIP 2VW History: ??M25.552: Pain of left hip joint Comparison: 08/01/2012 Findings: Hemiarthroplasty is present. The prosthesis is intact. There is no periprosthetic lucency. No acute left hip fracture or dislocation is seen. The pelvic radiograph is notable for a dynamic hip screw on the right. Procedure Note Roosevelt Isaacs MD - 01/24/2019 Exam: XR PELVIS W LEFT HIP 2VW History: M25.552: Pain of left hip joint Comparison: 08/01/2012 Findings: Hemiarthroplasty is present. The prosthesis is intact. There is no periprosthetic lucency. No acute left hip fracture or dislocation isseen. The pelvic radiograph is notable for a dynamic hip screw on the right. IMPRESSION: Left hip hemiarthroplasty. This report was electronically signed by ROOSEVELT ISAACS MD on 01/24/2019 7:21 AM . Sarah Nava MD DIAGNOSTIC MIGDALIA GING ORDERABLES * RI LIVER ELASTOGRAPHY (01/10/2019 10:10 PM MACHINIST JOB SETTER) Narrative Phoenix Woodall MD - 01/10/2019 10:10 PM MACHINIST JOB SETTER Phoenix Woodall MD ? 01/10/2019 10:11 PM Diagnosis: Elevated Liver Enzymes RN verified patient has no implanted devices and NPO for prior 3 hours. Vital signs taken, procedure explained and consent signed. Date of Exam: 01/09/2019 Liver Stiffness: (E, kPa) median: ??4.1 IQR (interquartile range): ?? 0.4 IQR/Median% (ideally < 30%): ??10% CAP (controlled attenuation parameter): ??234 Technical Difficulty: None Ordering Provider: Lisa Huang ACUTE CARE NURSE PRACTITIONER Phone Fax Fibroscan interpretation: I have personally reviewed the Fibroscan report and associated tracings. The calculated liver stiffness (E, kPa) indicates that: The probability of advanced liver fibrosis is: low. The loss of ultrasound signal, (controlled attenuation parameter, CAP [dB/m]), indicates that the probability of hepatic steatosis is: mild. Phoenix Woodall MD The following criteria are used to indicate the probability of advanced (stage 3-4) fibrosis: < 7.0 kPa: low 7.0-8.9 kPa: low to moderate 9.0-14.9 kPa: moderate 15-20 kPa: high > 20 kPa: very high Liver stiffness > 20 kPa is also associated with a high probability of complications of portal hypertension including varices and ascites. Liver stiffness > 50 kPa is associated with a high risk of variceal bleeding. Note: Liver stiffness is increased by factors other than fibrosis including passive congestion, infiltrative processes, active alcoholism, biliary obstruction and marked inflammation. The interpretation of the Fibroscan result provided above may not have taken such factors into account. Disease etiology also influences Fibroscan cutoff values for fibrosis stages and the following cutoffs have been proposed (Ritesh et al, Clin Gastro Hepatol 2015; 13:27-36): Cutoffs for Stage 3 and Stage 4 fibrosis respectively: Hepatitis B: >9 and >11.7 kPa Hepatitis C: >9.5 and >12.5 kPa HCV-HIV: >11 and >14 kPa Cholestatic liver diseases: >10 and >17.9 kPa NAFLD/VAZQUEZ: >10 and >14 kPa CAP estimates of steatosis: normal <200 dB/m maybe present 200 to 250 dB/m moderate 250-300 dB/m substantial > 300 dB/m (Note that Fibroscan is not a quantitative measure of liver fat and the risk of NAFLD progression is unrelated to the degree of steatosis.) These criteria are estimates and may change as additional supporting data becomes available. [email or web address] Lisa Huang RN LACTATION-STEM ROLLER PROCEDURE/CA NOR SURGICAL ORDERABLES * T4 FREE (EXTERNAL RESULT ENTRY) (01/09/2019) T4 Free (EXTERNAL RESULT) 1.52 0.89 - 2.19 ng/dl Blood BLOOD SPECIMEN / Unknown 01/09/2019 Historical Provider LAB - CHEMISTRY O RDERABLES * PT-INR [facility] (11/02/2018 3:45 PM CDT) PT 12.8 12.1 - 14.8 Seconds 11/02/2018 4:44 PM CDT [facility] INR 1.0 See Comment 11/02/2018 4:44 PM CDT [facility] Comment: The suggested therapeutic range for standard coumadin (warfarin) therapy is an INR of 2.0-3.0. For high-risk patients (Mechanical Mitral Valve Prosthesis, etc.), the suggested prophylactic therapeutic range is an INR of 2.5-3.5. Blood BLOOD SPECIMEN / Unknown Lab Venipuncture / Unknown 11/02/2018 3:45 PM CDT 11/02/2018 4:05 PM CDT Lisa Huang RN LACTATION-STEM ROLLER LAB - COAGUL ATION ORDERABLES [facility] [address] [phone] * [id number] BLOOD PHENOTYPING PANEL (11/02/2018 3:45 PM CDT) Sptuz-1-Nwerljnety n 128 90 - 200 mg/dL 11/07/2018 2:08 PM CDT [facility] ([facility]) Phenotype (PI) MM 11/07/2018 2:08 PM CDT [facility] ([facility]) Comment: ? Phenotype ?? Population ?A-1-AT Concentration ? Incidence % ?Reference Interval ? MM ?86.5% ?96 - 189 ? MS ? 8.0% ?83 - 161 ? MZ ? 3.9% ?60 - 111 ? FM ? 0.4% ?93 - 191 ? SZ ? 0.3% ?42 - ??75 ? SS ? 0.1% ?62 - 119 ? ZZ ? 0.05% ? 16 - ??38 ? FS ? 0.05% ? 70 - 128 ? FZ ?Unknown ?44 - ??88 ? FF ?Unknown ?Unknown Blood BLOOD SPECIMEN / Unknown Lab Venipuncture / Unknown 11/02/2018 3:45 PM CDT 11/02/2018 4:04 PM CDT Narrative [facility] ([facility]) - 11/07/2018 2:08 PM CDT Performed at: ??01 - [facility] [address] [place], [place] ??[id number] Worm Grower: Adelfo Mercedes PhD, Phone: ??[phone] Performed at: ??02 - Lab[address] ??[id number] Worm Grower: Cris Partida MD, Phone: ??[phone] Lisa Huang APRN-STEM ROLLER LAB - CHEMIS TRY ORDERABLES Performing Organization Address City/[facility]/ZIP Co de Phone Number [facility]) [address] [place] [address] * HEPATITIS C RNA QUANTITATIVE (11/02/2018 3:45 PM CDT) Hepatitis C RNA PCR, Interp Not Detected Not Detected 11/07/2018 8:35 PM CDT [facility] Blood BLOOD SPECIMEN / Unknown Lab Venipuncture / Unknown 11/02/2018 3:45 PM CDT 11/02/2018 4:04 PM CDT Narrative [facility] - 11/07/2018 8:35 PM CDT The Hepatitis C viral (HCV) RNA analysis utilized a serum sample, real-time reverse manager process PCR, and is reported as Not Detected, [...] the isolation of HCV RNA with reverse manager process of genomic HCV RNA followed by real-time PCR in the presence of an unrelated RNA internal control. ??The internal control ensures that RNA is isolated, and that no general significant inhibitors of the RT-PCR process are present. The analysis was performed using a U.S. FDA approved test methodology ([employer] Real Time HCV). Lisa Huang APRN-STEM ROLLER LAB - CHEMIS TRY ORDERABLES [facility] [address] [phone] * CERULOPLASMIN (11/02/2018 3:45 PM CDT) Ceruloplasmin 32 20 - 60 mg/dL 11/02/2018 4:57 PM CDT [facility] Blood BLOOD SPECIMEN / Unknown Lab Venipuncture / Unknown 11/02/2018 3:45 PM CDT 11/02/2018 4:04 PM CDT Lisa Huang RN LACTATION-STEM ROLLER LAB - CHEMIS TRY ORDERABLES Performing Organization Address [facility] de Phone Number [address] [phone] * NRMBE-1-[id number] BLOOD (11/02/2018 3:45 PM CDT) Byzfu-1-Iivczf ypsin 139 90 - 200 mg/dL 11/02/2018 4:57 PM CDT [facility] Blood BLOOD SPECIMEN / Unknown Lab Venipuncture / Unknown 11/02/2018 3:45 PM CDT 11/02/2018 4:04 PM CDT Lisa Huang APRN-STEM ROLLER LAB - Signifyd TRY ORDERABLES Performing Organization Address [facility] Phone Number [address] [phone] * SMOOTH MUSCLE ANTIBODY (11/02/2018 3:45 PM CDT) F-Actin Antibody IgG 6.6 0.0 - 19.9 Units 11/03/2018 11:04 AM CDT [facility] Comment: F-Actin Antibody Numeric Result Interpretation: ?<20.0 Units: ??Negative ?20.0 - 30.0 Units: ??Weak Positive ?>30.0 Units: ??Moderate to Strong Positive ? Blood BLOOD SPECIMEN / Unknown Lab Venipuncture / Unknown 11/02/2018 3:45 PM CDT 11/02/2018 4:04 PM CDT Lisa Huang RN LACTATION-STEM ROLLER LAB - SEROLO GY ORDERABLES Performing Organization Address [facility] de Phone Number [address] [phone] * (ABNORMAL) HEPATITIS B SURFACE ANTIBODY (11/02/2018 3:45 PM CDT) Hepatitis B Virus Surface Antibody Reactive( A) Non-react sharon 11/02/2018 5:17 PM CDT [facility] Comment: > 12 mIU/mL Hepatitis B surface Antibody (HBsAb). Reactive for HBsAb - individual is considered immune to Hepatitis B Virus infection. Hepatitis B Surface Antibody Quantitative 319.4(H) <8.0 mIU/mL 11/02/2018 5:17 PM CDT [facility] Comment: Hepatitis B Surface Antibody Numeric Result Interpretation: ? Nonreactive: ?<8.0 mIU/mL ? Indeterminate: ??8.0 - 12.0 mIU/mL ? Reactive: ?>12.0 mIU/mL ? Blood BLOOD SPECIMEN / Unknown Lab Venipuncture / Unknown 11/02/2018 3:45 PM CDT 11/02/2018 4:04 PM CDT Lisa Huang APRN-STEM ROLLER LAB - CHEMIS TRY ORDERABLES Performing Organization Address [facility] Co de Phone Number [address] [phone] * HEPATITIS B CORE ANTIBODY (11/02/2018 3:45 PM CDT) HBc Antibody Total Non-reacti ve Non-reacti ve 11/02/2018 5:15 PM CDT [facility] Blood BLOOD SPECIMEN / Unknown Lab Venipuncture / Unknown 11/02/2018 3:45 PM CDT 11/02/2018 4:04 PM CDT Lisa Huang RN LACTATION-STEM ROLLER LAB - CHEMIS TRY ORDERABLES Performing Organization Address City/[facility]/ZIP Co de Phone Number [address] [phone] * HEPATITIS B SURFACE ANTIGEN W RFLX CONFIRMATION (11/02/2018 3:45 PM CDT) Hepatitis B Virus Surface Antigen Non-reacti ve Non-reacti ve 11/02/2018 5:16 PM CDT [facility] Blood BLOOD SPECIMEN / Unknown Lab Venipuncture / Unknown 11/02/2018 3:45 PM CDT 11/02/2018 4:04 PM CDT Lisa Huang APRN-STEM ROLLER LAB - CHEMIS TRY ORDERABLES Performing Organization Address [facility] Co de Phone Number [address] [phone] * (ABNORMAL) HEPATITIS A ANTIBODY (11/02/2018 3:45 PM CDT) Hepatitis A Virus Antibody Total Positive(A ) Negative 11/04/2018 5:07 AM CDT [facility] ([facility]) Blood BLOOD SPECIMEN / Unknown Lab Venipuncture / Unknown 11/02/2018 3:45 PM CDT 11/02/2018 4:04 PM CDT Narrative [facility] ([facility]) - 11/04/2018 5:07 AM CDT Performed at: ??01 - [facility] [place] [address] [place], [place] ??[id number] Worm Grower: Adelfo Mercedes PhD, Phone: ??[phone] Lisa Huang RN LACTATION-STEM ROLLER LAB - CHEMIS TRY ORDERABLES Performing Organization Address City/[facility]/ZIP Co de Phone Number [facility] ([facility]) [address] [place] [address] * (ABNORMAL) CULTURE URINE (09/04/2013 4:08 PM CDT) Culture Urine ESCHERICHIA COLI(A) [facility] Comment:1,000,000 CFU/ML Esc herichia Coli Urine specimen (specimen) URINE SPECIMEN OBTAINED BY CLEAN CATCH PROCEDURE / Unknown 09/04/2013 4:08 PM CDT 09/04/2013 9:45 PM CDT Narrative [facility] - 09/07/2013 12:41 PM CDT AndersonSpecimen#[id number] Mathew Loc/Rm/Bed: ED// CLN CATCH U @09/04/13 1651: URINE CULTURE added. RFLXG = UAUCC. Organism Antibiotic Method Susceptibility Escherichia coli Amikacin SUSCEPTIBILITY <=2: Sensitive Escherichia coli Ampicillin SUSCEPTIBILITY >=32: Resistant Escherichia coli Ampicillin-sulbactam SUSCEPTIBILITY 16: Intermediate Escherichia coli Cefazolin SUSCEPTIBILITY 8: Resistant Escherichia coli Cefepime SUSCEPTIBILITY <=1: Sensitive Escherichia coli Ceftazidime SUSCEPTIBILITY <=1: Sensitive Escherichia coli Ceftriaxone SUSCEPTIBILITY <=1: Sensitive Escherichia coli Gentamicin SUSCEPTIBILITY <=1: Sensitive Escherichia coli Imipenem SUSCEPTIBILITY <=0.25: Sensitive Escherichia coli Levofloxacin SUSCEPTIBILITY >=8: Resistant Escherichia coli Nitrofurantoin SUSCEPTIBILITY <=16: Sensitive Escherichia coli Piperacillin-tazobactam SUSCEPTIBILIT Y <=4: Sensitive Escherichia coli Tobramycin SUSCEPTIBILITY <=1: Sensitive Escherichia coli Trimethoprim-sulfamethoxazole SUSCEPT IBILITY <=20: Sensitive Escherichia coli Extended-Spectrum Beta-Lactamase SUSC EPTIBILITY Neg: - Historical Provider MD LAB - MICROBIOLOG Y ORDERABLES Performing Organization Address City/State/[facility] Co de Phone Number [facility] [address] [place] [address] * CT HIP LEFT WO CONTRAST (07/15/2012 10:07 PM CDT) Anatomical Region Laterality Modality Other Impressions 07/17/2012 9:34 AM CDT IMPRESSION: Left nondisplaced proximal periprosthetic femoral fracture. The above findings were discussed with the orthopedic resident Dr. Luis Fisher at 9:30 AM on July 17, 2012. This report was electronically signed by MIGUELANGEL GOEL M.D. ??on 07/17/2012 9:34 AM . Narrative 07/17/2012 9:[address] EXTREMITY OF THE LEFT HIP NONCONTRAST Clinical History: 52-year-old male with hip pain and suspected fracture on recent radiographs. TECHNIQUE: 2-mm contiguous axial images were obtained through the left hip in bone and soft tissue window algorithms. Post processing reconstructions were obtained in the coronal and sagittal planes. Comparison and correlation is made to the prior radiographs from July 15, 2012 which reveals total left hip arthroplasty with suggestion of a nondisplaced greater trochanter fracture. FINDINGS: The patient is status post left hip hemiarthroplasty. There is beam hardening artifact from the hardware. There is a nondisplaced fracture involving the lateral greater trochanter and extending through the subtrochanteric portion of the proximal femur. No acute malalignment. These findings are best seen on the sagittal series 7 (image 91) and the coronal series 6 (image 58). Arrows were placed in the region of the findings. There are thin linear ossifications adjacent to the insertion of the gluteal tendons which are age indeterminate may be related to prior avulsion versus enthesopathy. No focal soft tissue swelling or hematoma. Procedure Note Miguelangel Goel MD - 06/05/2017 CT EXTREMITY OF THE LEFT HIP NONCONTRAST Clinical History: 52-year-old male with hip pain and suspected fracture onrecent radiographs. TECHNIQUE: 2-mm contiguous axial images were obtained through the left hipin bone and soft tissue window algorithms. Post processing reconstructionswere obtained in the coronal and sagittal planes. Comparison and correlation is made to the prior radiographs from July which reveals total left hip arthroplasty with suggestion of anondisplaced greater trochanter fracture. FINDINGS: The patient is status post left hip hemiarthroplasty. There isbeam hardening artifact from the hardware. There is a nondisplacedfracture involving the lateral greater trochanter and extending throughthe subtrochanteric portion of the proximal femur. No acute malalignment. These findings are best seen on thesagittal series 7 (image 91) and the coronal series 6 (image 58). Arrowswere placed in the region of the findings. There are thin linear ossifications adjacent to the insertion of thegluteal tendons which are age indeterminate may be related to prioravulsion versus enthesopathy. No focal soft tissue swelling or hematoma. IMPRESSION IMPRESSION: Left nondisplaced proximal periprosthetic femoral fracture. The above findings were discussed with the orthopedic resident Dr. Mcallister at 9:30 AM on July 17, 2012. This report was electronically signed by MIGUELANGEL GOEL M.D. on 07/17/20129:34 AM . Adam Daily DO CT ORDERABLES * XR FEMUR LEFT 2VW (07/15/2012 4:29 PM CDT) Anatomical Region Laterality Modality Lower Extremity Other Impressions 07/16/2012 11:50 AM CDT Impression: Equivocal finding for a nondisplaced fracture, as above. This report was electronically signed by RACHELLE BURGER M.D. ??on 07/16/2012 11:50 AM . Narrative 07/16/2012 11:50 AM CDT Exam: Left femur 2 views Date: ??07/15/2012 4:15 PM History: ??periprosthetic fracture Findings: There is a left femoral head prosthesis in anatomic position. There is no dislocation. There is questionable cortical discontinuity inferior to the greater trochanter on the lateral view. Osteopenia is noted. Procedure Note Rachelle Burger MD - 06/05/2017 Exam: Left femur 2 views Date: 07/15/2012 4:15 PM History: periprosthetic fracture Findings: There is a left femoral head prosthesis in anatomic position. There is nodislocation. There is questionable cortical discontinuity inferior to thegreater trochanter on the lateral view. Osteopenia is noted. IMPRESSION Impression: Equivocal finding for a nondisplaced fracture, as above. This report was electronically signed by RACHELLE BURGER M.D. on 07/16/201211:50 AM . Marie Alvarado MD DIAGNOSTIC IMAGING O RDERABLES * XR PELVIS 1 OR 2VW (07/15/2012 4:21 PM CDT) Only the most recent of2 resultswithin the time period is included. Anatomical Region Laterality Modality Pelvis Other Impressions 07/16/2012 11:47 AM CDT Impression: No acute finding. This report was electronically signed by RACHELLE BURGER M.D. ??on 07/16/2012 11:47 AM . Narrative 07/16/2012 11:47 AM CDT Exam: Pelvis AP view Date: ??07/15/2012 4:00 PM History: Pain Findings: Comparison: 08/24/2011 There has been internal fixation of the proximal right femur. Hardware is intact. No fracture line is visible. There is a left femoral head prosthesis in anatomic position, without definite evidence of complication. The bones are diffusely demineralized. Procedure Note Rachelle Burger MD - 06/05/2017 Exam: Pelvis AP view Date: 07/15/2012 4:00 PM History: Pain Findings: Comparison: 08/24/2011 There has been internal fixation of the proximal right femur. Hardware isintact. No fracture line is visible. There is a left femoral head prosthesis in anatomic position, withoutdefinite evidence of complication. The bones are diffuselydemineralized. IMPRESSION Impression: No acute finding. This report was electronically signed by RACHELLE BURGER M.D. on 07/16/201211:47 AM . Marie Alvarado MD DIAGNOSTIC IMAGING O RDERABLES * LAB MICROBIOLOGY - HPF HISTORICAL (07/06/2011 4:59 AM CDT) Only the most recent of8 resultswithin the time period is included. 07/06/2011 4:59 AM CDT Narrative [facility] - 07/06/2011 4:59 AM CDT Eduardo White MD LAB - MICROBIOLOGY ORDERABLES Performing Organization Address City/[facility] Co de Phone Number [address] * PATHOLOGY REPORTS - HPF HISTORICAL (01/05/2011 3:16 PM CDT) 01/05/2011 3:16 PM CDT Narrative [facility] - 01/05/2011 3:16 PM CDT Wan John MD LAB - PATHOLOGY/CYTO LOGY ORDERABLES [facility] Care Teams Plan Rep Relationship Specialty Start Date End Date Pierre Calvo MD [address] [place] [phone] PCP - General Family Medicine 01/07/23
--- OUTSIDE RECORDS SUMMARY | 2024-04-06 14:32 | XMS_ITS | Clinical Summary ---
Author Organization [facility] [employer] Address [address] [place] [address] Care Team Providers Care Computer Numeric Control Setter Name Role Phone Pierre Calvo MD Primary Care Provider [phone] Source Comments [facility] [employer],non-owned Affiliates and Associated Physician Practices is amultiple site organization consisting of ambulatory clinics and hospital sitesin [place], [place], [place] and [place]. This disclosure is being madepursuant to the Care Everywhere program and may not contain all information available regarding this patient. Last updated 17.[employer] [employer] Allergies No known active allergies Medications * [...] as needed Active ergocalciferol (Drisdol) 1.25 MG (03305 UT) capsule ergocalciferol (vitamin D2) 1,250 mcg [...] Bilateral impacted cerumen 05/06/2019 03/09/2023 0 03/23/2023 Encounters Date Type Department Care Team Description 02/27/2024 11:19 AM PRODUCER DIRECTOR - 02/27/2024 11:59 PM PRODUCER DIRECTOR Hospital Encounter [facility] OP DRAW STATION [address] [place] [phone] Discharge Disposition: Home or Self Care 02/27/2024 Travel from Last 3 Months Immunizations Name Administration Dates Next Due baseclick BIVALENT 12Y+ 30mcg/0.3ML 2 HEP A VACCINE, ADULT 05/24/2008,11/17/2007 HEP B VACCINE, ADULT 3 DOSE 07/12/2008, 8,11/16/2007 INFLUENZA VACCINE, QUADR. (F LUZONE; FLULAVAL; FLUARIX; AFLURIA QUADRIVALENT; 6MO+), 0.5 ML (IIV4) 12/13/2022 MMR VACCINE 11/17/2007 TD (AGE 7-ADULT) 11/16/2007 TDAP, HISTORIC VACCINE 02/24/2021 Family History Medical History Relation Name Comments Aneurysm, Aortic Father Cancer - Colon Mother Relation Name Status Comments Father Mother [...] st Contact Info) Description 04/10/2024 3:00 PM PRODUCER DIRECTOR Procedure visit [facility] - Neurology [address] [place] [address], [place] [phone] Scooter George MD [address] [place] [address] [address] [place] [phone] 06/15/2024 3:00 PM CDT Office Visit [facility] - GI [address] [place] [address], [place] [address] Lisa Huang, TITLE CLERK AUTOMOBILE-TURBINE ENGINEER [address] [place] [address] 2L [place] [phone] Health Maintenance Due Date Last Done Comments COLOGUARD (AGES 45-75) - COLON CA SCREENING 1961 COLON MONITORING 1961 COLONOSCOPY - COLON CA SCREENING 1961 CT COLONOGRAPHY - COLON CA SCREENING 1961 Colorectal Cancer Screening 1961 FIT - COLON CA SCREENING 1961 FLEX SIG - COLON CA SCREENING 1961 HIV SCREENING 1976 PNEUMOCOCCAL VACCINE 50+ (1 of 1 - PCV) 06/25/2011 ZOSTER VACCINE (1 of 2) 06/25/2011 Respiratory Syncytial Virus (RSV) Vaccine Pt: or over 60 yrs (1 - Risk 60-74 years 1-dose series) 2021 COVID-19 VACCINE ( season) 2023 03/04/2022, 02/24/2021, 06/23/2020, Additional history exists INFLUENZA VACCINE (#1) 2023 12/13/2022 DEPRESSION SCREENING 03/07/2024 DTAP/TDAP/TD VACCINES (3 - Td or Tdap) 02/24/2031 02/24/2021, 11/16/2007 HEPATITIS B VACCINE Completed 07/12/2008, 02/23/2008, 11/16/2007 HEPATITIS C SCREENING Completed 11/02/2018 HIB VACCINE Aged Out No longer eligi ble based on patient's age to complete this topic HPV VACCINE Aged Out No longer eligi ble based on patient's age to complete this topic MENINGOCOCCAL (Group B) VACCINE Aged Out No longer eligible based on patient's age to complete this topic MENINGOCOCCAL VACCINE Aged Out No jarrod herbie eligible based on patient's age to complete this topic Goals Goal Patient Goal Type Associated Problems Recent Progress Patient-Stated? Author Medication Management General On track( 024 4:13 PM CDT) Kelly Driscoll, RN Note: Expected end date: ongoing Interventions: Take all medications as prescribed Procedures Procedure Name Priority Date/Time Associated Diagnosis Comments COMPREHENSIVE METABOLIC PANEL Routine 02/27/2024 12:18 PM PRODUCER DIRECTOR Hyperbilirubinemia CBC W AUTO DIFFERENTIAL Routine 02/27/2024 12:18 PM PRODUCER DIRECTOR Hyperbilirubinemia HEPATITIS C RNA QUANTITATIVE Routine 11/02/2018 3:45 PM CDT Elevated liver enzymes from Last 3 Months or Most Recently Relevant to Health Maintenance Results * (ABNORMAL) CBC WITH DIFFERENTIAL (02/27/2024 12:18 PM PRODUCER DIRECTOR) WBC 6.9 4.0 - 10.7 x10E9/L 02/27/2024 1:28 PM [facility] RBC Count 4.85 4.30 - 5.80 x10E12/L 02/27/2024 1:28 PM [facility] Hemoglobin 14.6 13.3 - 17.5 g/dL 02/27/2024 1:28 PM [facility] Hematocrit 43.0 38.7 - 51.1 % 02/27/2024 1:28 PM [facility] MCV 88.7 80.0 - 98.0 fL 02/27/2024 1:28 PM [facility] MCH 30.1 26.7 - 33.6 pg 02/27/2024 1:28 PM [facility] MCHC 34.0 31.7 - 36.3 g/dL 02/27/2024 1:28 PM [facility] RDW-CV 12.4 11.3 - 14.8 % 02/27/2024 1:28 PM [facility] Platelet Count 226 150 - 420 x10E9/L 02/27/2024 1:28 PM [facility] MPV 12.1(H) 7.8 - 11.4 fL 02/27/2024 1:28 PM [facility] Neutrophil % 68.4 41.0 - 74.0 % 02/27/2024 1:28 PM [facility] Lymphocyte % 20.4 17.0 - 47.0 % 02/27/2024 1:28 PM [facility] Monocyte % 6.5 3.0 - 11.0 % 02/27/2024 1:28 PM [facility] Eosinophil % 4.2 0.0 - 7.0 % 02/27/2024 1:28 PM [facility] Basophil % 0.4 0.0 - 1.6 % 02/27/2024 1:28 PM [facility] Immature Granulocytes % 0.1 0.0 - 1.0 % 02/27/2024 1:28 PM [facility] Neutrophil Absolute 4.72 1.60 - 7.50 x10E9/L 02/27/2024 1:28 PM [facility] Lymphocyte Absolute 1.41 1.00 - 4.40 x10E9/L 02/27/2024 1:28 PM [facility] Monocyte Absolute 0.45 0.15 - 1.00 x10E9/L 02/27/2024 1:28 PM [facility] Eosinophil Absolute 0.29 0.00 - 0.60 x10E9/L 02/27/2024 1:28 PM [facility] Basophil Absolute 0.03 0.00 - 0.13 x10E9/L 02/27/2024 1:28 PM [facility] Blood BLOOD SPECIMEN / Unknown Lab Venipuncture / Unknown 02/27/2024 12:18 PM PRODUCER DIRECTOR 02/27/2024 1:02 PM [facility] Lisa Huang TITLE CLERK AUTOMOBILE-TURBINE ENGINEER LAB - HEMATO LOGY ORDERABLES [facility] [address] [place] [address], [facility] [phone] * (ABNORMAL) COMPREHENSIVE METABOLIC PANEL (02/27/2024 12:18 PM [facility]) BUN 14 7 - 26 mg/dL 02/27/2024 2:02 PM [facility] Creatinine 1.11 0.71 - 1.16 mg/dL 02/27/2024 2:02 PM [facility] Sodium 140 136 - 145 mmol/L 02/27/2024 2:02 PM [facility] Potassium 4.1 3.5 - 4.5 mmol/L 02/27/2024 2:02 PM [facility] Chloride 106 98 - 107 mmol/L 02/27/2024 2:02 PM [facility] CO2 26 22 - 29 mmol/L 02/27/2024 2:02 PM [facility] Glucose 97 70 - 99 mg/dL 02/27/2024 2:02 PM [facility] Calcium 8.9 8.4 - 10.2 mg/dL 02/27/2024 2:02 PM [facility] Protein Total 7.3 6.0 - 8.3 g/dL 02/27/2024 2:02 PM [facility] Albumin 4.0 3.4 - 5.0 g/dL 02/27/2024 2:02 PM [facility] Bilirubin Total 1.3(H) 0.2 - 1.2 mg/dL 02/27/2024 2:02 PM [facility] Alkaline Phosphatase 148 40 - 150 U/L 02/27/2024 2:02 PM [facility] ALT 49 5 - 55 U/L 02/27/2024 2:02 PM [facility] AST 33 5 - 34 U/L 02/27/2024 2:02 PM [facility] Anion Gap 8 6 - 16 02/27/2024 2:02 PM [facility] BUN/Creatinine Ratio 13 7 - 23 02/27/2024 2:02 PM [facility] Osmolality Calculated 290 275 - 295 mOsm/kg 02/27/2024 2:02 PM [facility] Albumin/Globulin Ratio 1.2 1.1 - 2.3 02/27/2024 2:02 PM [facility] eGFR by CKD-EPI 75(L) >=90 mL/min/1.7 3 m2 02/27/2024 2:02 PM [facility] Blood BLOOD SPECIMEN / Unknown Lab Venipuncture / Unknown 02/27/2024 12:18 PM PRODUCER DIRECTOR 02/27/2024 1:04 PM [facility] Lisa Huang TITLE CLERK AUTOMOBILE-TURBINE ENGINEER LAB - CHEMIS TRY ORDERABLES [facility] [address] [place] [phone], [facility] [phone] * HEPATITIS C RNA QUANTITATIVE (11/02/2018 3:45 PM CDT) Hepatitis C RNA PCR, Interp Not Detected Not Detected 11/07/2018 8:35 PM CDT [facility] Blood BLOOD SPECIMEN / Unknown Lab Venipuncture / Unknown 11/02/2018 3:45 PM CDT 11/02/2018 4:04 PM CDT Narrative [facility] - 11/07/2018 8:35 PM CDT The Hepatitis C viral (HCV) RNA analysis utilized a serum sample, real-time reverse inserting machine operator PCR, and is reported as Not Detected, [...] the isolation of HCV RNA with reverse inserting machine operator of genomic HCV RNA followed by real-time PCR in the presence of an unrelated RNA internal control. ??The internal control ensures that RNA is isolated, and that no general significant inhibitors of the RT-PCR process are present. The analysis was performed using a U.S. FDA approved test methodology (Skaffl Real Time HCV). Lisa Huang APRN-TURBINE ENGINEER LAB - CHEMIS TRY ORDERABLES [facility] [address] [phone] from Last 3 Months or Most Recently Relevant to Health Maintenance Care Teams Computer Numeric Control Setter Relationship Specialty Start Date End Date Pierre Calvo MD [address] [place] [address] PCP - General Family Medicine 01/07/23
--- OUTSIDE RECORDS SUMMARY | 2024-04-06 14:32 | XMS_ITS | Clinical Summary ---
Author Organization [facility] Address [address] [place] [address]. [place] [address] [place] [address] Care Team Providers Care Fishing Gear Mechanic Name Role Phone Unavailable Primary Care Provider Unavailabl e Social History Tobacco Use Types Packs/Day Years Used Date Smoking Tobacco: Never Assessed Sex and Gender Information Value Date Recorded Sex Assigned at Not on file Legal Sex Male 8:24 PM CDT Gender Identity Not on file Sexual Orientation Not on file Plan of Treatment Health Maintenance Due Date Last Done Comments Colorectal Cancer Screening Colonoscopy (10 Years) 1961 Annual Physical 1964 Hepatitis C 06/25/1979 DTaP, Tdap and Td Vaccines ( 1 - Tdap) 1980 Zoster Vaccines (1 of 2) 06/25/2011 COVID-19 Vaccine ( - 2023-2 5 season) 2023 Influenza Adult (#1) 2023 RSV Immunization or 60+ Years (1 - 1-dose 75+ series) 2036 Meningococcal B Vaccine Aged Out No l onger eligible based on patient's age to complete this topic Meningococcal Vaccine Aged Out No jarrod herbie eligible based on patient's age to complete this topic Pneumococcal Vaccine: Pediat rics (0 to 5 Years) and At-Risk Patients (6 to 64 Years) Aged Out No longer eligible b ased on patient's age to complete this topic RSV Immunizations Under 20 Months Aged Out No longer eligible based on patient's age to complete this topic
--- OUTSIDE RECORDS SUMMARY | 2024-04-06 14:32 | XMS_ITS | Encounter Summary ---
Author Organization [facility] Address [address] [place] [address] Care Team Providers Care Tax Specialist Name Role Phone Pierre Calvo Primary Care Provider [facility] Alcides Berry MD Primary Care Provider [phone] Pierre Calvo MD Primary Care Provider [phone] Reason for Visit * Reason Onset Date Comments Appointment 11/05/2021 Encounter Details Date Type Department Care Team (Late st Contact Info) Description 11/05/2021 Telephone [facility] [address] [place] [address] Pierre Calvo Update Information Appointment Social History Tobacco Use Types Packs/Day [...] encounter Miscellaneous Notes * Telephone Encounter - Sharmin Katz - 11/05/2021 11:55 AM CDT Current Provider name: KASI Reason for call: Patient's brother Adam called into the scheduling line on David's behalf to request a botox appointment with . Would like to know if someone can call him back to schedule. Patient's BRANDIE was 01/23/2019 Patient Call Back number: [phone] documented in this encounter Plan of Treatment Upcoming Encounters Date Type Department Care Team (Late st Contact Info) Description 04/10/2024 3:00 PM EC TEACHER [facility] - Neurology [address] [place] [address], First Level [phone] Scooter George MD [address] [place] [address] 1L DIV OF NEUROLOGY [phone] 06/15/2024 3:00 PM CDT [facility] - GI [address] [place] [address], Third Level [phone] Lisa Huang, SPRAYER HAND-HEEL WASHER STRINGING MACHINE OPERATOR [address] [place] [address] 2L DIV OF GASTROENTEROLOGY [phone] documented as of this encounter Goals Goal Patient Goal Type Associated Problems Recent Progress Patient-Stated? Author Medication Management General On track( 024 4:13 PM CDT) Kelly Driscoll, RN Note: Expected end date: ongoing Interventions: Take all medications as prescribed documented as of this encounter Visit Diagnoses Not on filedocumented in this encounter Care Teams Tax Specialist Relationship Specialty Start Date End Date Pierre Calvo Update Information PCP - General 09/22/19 12/01/22 Alcides Schultz MD [address] [place] [address] PCP - General Internal Medicine 12/02/22 01/06/23 Pierre Calvo MD [address] [place] [phone] PCP - General Family Medicine 01/07/23 documented as of this encounter
--- OUTSIDE RECORDS SUMMARY | 2024-04-06 14:32 | XMS_ITS | Encounter Summary ---
Author Organization [facility] Address [address] [place] [address] Care Team Providers Care Retail Office Associate Name Role Phone Pierre Calvo Primary Care Provider [facility] Alcides Berry MD Primary Care Provider Pierre Calvo MD Primary Care Provider [phone] Reason for Visit * Reason Onset Date Comments Future Appointment 01/18/2022 Encounter Details Date Type Department Care Team (Late st Contact Info) Description 01/18/2022 Telephone [facility] [address] [place] [address] Sarah Smith MD [address] [place] [address] Future Appointment Social History Tobacco Use Types Packs/Day [...] encounter Miscellaneous Notes * Telephone Encounter - Elizabeth Lechuga, RN - 02/17/2022 11:39 AM PUBLIC SAFETY TELECOMMUNICATOR Received call from Rossy at [facility] requesting Referral for PT be faxed to [phone]. Order faxed with face sheet as requested. IC SAFETY TELECOMMUNICATOR * Telephone Encounter - Jessenia Montero - 01/18/2022 12:42 PM CST Mr Bowen called to reschedule his appt that was cancelled for today. Please contact David at [phone] to reschedule his Botox appointment. Thanks IC SAFETY TELECOMMUNICATOR documented in this encounter Plan of Treatment Upcoming Encounters Date Type Department Care Team (Late st Contact Info) Description 04/10/2024 3:00 PM PUBLIC SAFETY TELECOMMUNICATOR Procedure visit [facility] - Neurology [address] [place] [address], [place] [address] Scooter George MD [address] [place] [address] [address] [place] [address] 06/15/2024 3:00 PM CDT Office Visit [facility] - GI [address] [place] [address], [place] [address] Lisa Huang, DIRECTOR OF DANCE-CERTIFIED WELLNESS PROGRAM MANAGER [address] [place] [address] [address] [place] [address] documented as of this encounter Goals Goal Patient Goal Type Associated Problems Recent Progress Patient-Stated? Author Medication Management General On track( 024 4:13 PM CDT) Kelly Driscoll, RN Note: Expected end date: ongoing Interventions: Take all medications as prescribed documented as of this encounter Visit Diagnoses Not on filedocumented in this encounter Care Teams Retail Office Associate Relationship Specialty Start Date End Date Pierre Calvo Update Information PCP - General 09/22/19 12/01/22 Alcides Schultz MD [address] [place] [address] PCP - General Internal Medicine 12/02/22 01/06/23 Pierre Calvo MD [address] [place] [phone] PCP - General Family Medicine 01/07/23 documented as of this encounter
[2024-04-06 15:18] VITALS: BP 104/61; PULSE 71; RESP 16; TEMP 36.6; O2SAT 99
--- NOTE | 2024-04-06 16:15 | ED.LOWEXIN ---
HPI - Extremity Injury (Lower) General Chief Complaint: Extremity Injury, Lower <Rufina Mcwilliams PA-C - Last Filed: 04/07/24 18:14> Stated Complaint: left foot swollen <Rufina Mcwilliams PA-C - Last Filed: 04/07/24 18:14> Time Seen by Provider: 04/06/24 16:15 <Rufina Mcwilliams PA-C - Last Filed: 04/07/24 18:14> Focused HPI: This is a 63 year old male that presents to the ER for swelling of the left foot. Ongoing over the last couple days. Reports he twisted the ankle a couple weeks ago. No wounds noted. GENERAL: Well-appearing, well-nourished, and in no acute distress. HEAD: Normocephalic, atraumatic. CHEST: Clear to auscultation. ?No respiratory distress. HEART: Regular rate and rhythm.? NEURO: ?Alert and oriented x3. Patient screened in triage and initial orders placed.? ?Additional care and disposition to be based upon?diagnostic testing and treatment. <Rufina Mcwilliams PA-C - Last Filed: 04/07/24 18:14> History of Present Illness HPI Narrative: Agree with HPI. 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 Receives Botox injections. Mode injury 2 weeks ago. No edema over last few days. No erythema or fever. <Gigi Castillo MD - Last Filed: 04/06/24 21:35> Related Data Allergies/Adverse Reactions: Allergies Allergy/AdvReac Type Severity Reaction Status Date / Time No Known Allergies Allergy Verified 09/01/16 12:26 <Rufina Mcwilliams PA-C - Last Filed: 04/07/24 18:14> Review of Systems Constitutional: Constitutional: Reports no additional constitutional complaints <Gigi Castillo MD - Last Filed: 04/06/24 21:35> Cardiovascular: Cardiovascular: Reports no additional cardiovascular complaints <Gigi Castillo MD - Last Filed: 04/06/24 21:35> Respiratory: Respiratory: Reports no additional respiratory complaints <Gigi Castillo MD - Last Filed: 04/06/24 21:35> Musculoskeletal: Musculoskeletal: Reports no additional musculoskeletal complaints <Gigi Castillo MD - Last Filed: 04/06/24 21:35> PMFSH Past Medical History Medical History: Medical History (Updated 04/07/24 @ 18:12 by Rufina Mcwilliams PA-C) History of hyperlipidemia Traumatic brain injury <Rufina Mcwilliams PA-C - Last Filed: 04/07/24 18:14> Social History Social History: Social History (Updated 04/07/24 @ 18:12 by Rufina Mcwilliams PA-C) Substance use: never <Rufina Mcwilliams PA-C - Last Filed: 04/07/24 18:14> Exam Narrative: GENERAL: Well-appearing, well-nourished, and in no acute distress. HEAD: Normocephalic, atraumatic. CHEST: Clear to auscultation. No respiratory distress. HEART: Regular rate and rhythm. Normal peripheral pulses. EXTREMITIES: Normal range of motion. 2+ edema. Left lower extremity compared to right, no calf tenderness. SKIN: Warm, dry, no rash. NEURO: Alert and oriented x3. PSYCH: Normal mood and affect. <Gigi Castillo MD - Last Filed: 04/06/24 21:35> Course Course Emergency Course: Discussed dependent edema and need to elevate legs. Mild edema on the right side compared to left but still present. Patient fully ambulatory and has a wheelchair at home. Recommend follow-up with PCP as well as compression stockings. <Gigi Castillo MD - Last Filed: 04/06/24 21:35> Vital Signs Vital signs: Vital Signs Temperature 97.8 F 04/06/24 15:18 Pulse Rate 71 04/06/24 15:18 Respiratory Rate 16 04/06/24 15:18 Blood Pressure 104/61 04/06/24 15:18 Pulse Oximetry 99 04/06/24 15:18 Oxygen Delivery Room Air 04/06/24 15:18 Temperature 97.8 F 04/06/24 15:18 Pulse Rate 71 04/06/24 15:18 Respiratory Rate 16 04/06/24 15:18 Blood Pressure 104/61 04/06/24 15:18 Pulse Oximetry 99 04/06/24 15:18 Oxygen Delivery Room Air 04/06/24 15:18 <Rufina Mcwilliams PA-C - Last Filed: 04/07/24 18:14> Vital Signs Temperature 97.8 F 04/06/24 15:18 Pulse Rate 71 04/06/24 15:18 Respiratory Rate 16 04/06/24 15:18 Blood Pressure 104/61 04/06/24 15:18 Pulse Oximetry 99 04/06/24 15:18 Oxygen Delivery Room Air 04/06/24 15:18 Temperature 97.8 F 04/06/24 15:18 Pulse Rate 71 04/06/24 15:18 Respiratory Rate 16 04/06/24 15:18 Blood Pressure 104/61 04/06/24 15:18 Pulse Oximetry 99 04/06/24 15:18 Oxygen Delivery Room Air 04/06/24 15:18 <Gigi Castillo MD - Last Filed: 04/06/24 21:35> MDM - Extremity Injury (Lower) Lab Data Result diagrams: 04/06/24 18:07 04/06/24 18:07 <Rufina Mcwilliams PA-C - Last Filed: 04/07/24 18:14> Labs: Lab Results 04/06/24 04/06/24 Range/Units 18:07 18:07 WBC 8.8 (4.5-10.0) K/mm3 RBC 4.79 (4.6-6.20) M/mm3 Hgb 14.9 (14.0-18.0) g/dL Hct 43.7 (42.0-52.0) % MCV 91.2 (80-100) fl MCH 31.1 (26-34) pg MCHC 34.1 (32-36) g/dl RDW 12.6 (11.5-14.5) % Plt Count 266 (150-375) k/mm3 MPV 11.2 H (7.4-10.4) fl Immature Gran % (Auto) 0.2 (0-0.5) % Neut % (Auto) 73.5 H (45.5-73.1) % Lymph % (Auto) 16.6 L (18.3-44.2) % Ceiba % (Auto) 6.6 (2.6-8.5) % Eos % (Auto) 2.6 (0-4.4) % Baso % (Auto) 0.5 (0.2-1.2) % Lymph # (Auto) 1.46 (0.9-3.2) K/mm3 Ceiba # (Auto) 0.6 (0.1-0.6) K/mm3 Eos # (Auto) 0.2 (0-0.3) K/mm3 Baso # (Auto) 0.0 (0.0-0.1) K/mm3 Abs Immat Gran (auto) 0.02 (0.00-0.031) K/mm3 Absolute Neuts (auto) 6.4 (1.3-6.7) K/mm3 Absolute Nucleated RBC 0.000 (0.0-0.012) K/mm3 Nucleated RBC % 0.0 (0.0-0.2) % PT 14.2 (11.1-14.7) Seconds INR 1.1 APTT 28.6 (22.3-36.8) Seconds Sodium 142 (137-145) mmol/L Potassium 3.9 (3.4-5.0) mmol/L Chloride 105 (98-107) mmol/L Carbon Dioxide 25 (22-30) mmol/L Anion Gap 12 (4-12) mmol/L BUN 19 (9-20) mg/dL Creatinine 0.85 (0.7-1.3) mg/dL Estim Creat Clear Calc Not Reportable Estimated GFR > 60 (59 - ) Glucose 91 (65-110) mg/dL Calcium 8.9 (8.4-10.2) mg/dL Total Bilirubin 2.1 H (0.2-1.3) mg/dL AST 28 (17-59) U/L ALT 23 (6-50) U/L Alkaline Phosphatase 215 H (38-126) U/L NT-Pro-B Natriuret Pep 195 H Cancelled (19.9-100) pg/mL Total Protein 8.0 (6.3-8.2) g/dL Albumin 4.0 (3.5-5.1) g/dL <Rufina Mcwilliams PA-C - Last Filed: 04/07/24 18:14> Lab Results 04/06/24 04/06/24 Range/Units 18:07 18:07 WBC 8.8 (4.5-10.0) K/mm3 RBC 4.79 (4.6-6.20) M/mm3 Hgb 14.9 (14.0-18.0) g/dL Hct 43.7 (42.0-52.0) % MCV 91.2 (80-100) fl MCH 31.1 (26-34) pg MCHC 34.1 (32-36) g/dl RDW 12.6 (11.5-14.5) % Plt Count 266 (150-375) k/mm3 MPV 11.2 H (7.4-10.4) fl Immature Gran % (Auto) 0.2 (0-0.5) % Neut % (Auto) 73.5 H (45.5-73.1) % Lymph % (Auto) 16.6 L (18.3-44.2) % Ceiba % (Auto) 6.6 (2.6-8.5) % Eos % (Auto) 2.6 (0-4.4) % Baso % (Auto) 0.5 (0.2-1.2) % Lymph # (Auto) 1.46 (0.9-3.2) K/mm3 Ceiba # (Auto) 0.6 (0.1-0.6) K/mm3 Eos # (Auto) 0.2 (0-0.3) K/mm3 Baso # (Auto) 0.0 (0.0-0.1) K/mm3 Abs Immat Gran (auto) 0.02 (0.00-0.031) K/mm3 Absolute Neuts (auto) 6.4 (1.3-6.7) K/mm3 Absolute Nucleated RBC 0.000 (0.0-0.012) K/mm3 Nucleated RBC % 0.0 (0.0-0.2) % PT 14.2 (11.1-14.7) Seconds INR 1.1 APTT 28.6 (22.3-36.8) Seconds Sodium 142 (137-145) mmol/L Potassium 3.9 (3.4-5.0) mmol/L Chloride 105 (98-107) mmol/L Carbon Dioxide 25 (22-30) mmol/L Anion Gap 12 (4-12) mmol/L BUN 19 (9-20) mg/dL Creatinine 0.85 (0.7-1.3) mg/dL Estim Creat Clear Calc Not Reportable Estimated GFR > 60 (59 - ) Glucose 91 (65-110) mg/dL Calcium 8.9 (8.4-10.2) mg/dL Total Bilirubin 2.1 H (0.2-1.3) mg/dL AST 28 (17-59) U/L ALT 23 (6-50) U/L Alkaline Phosphatase 215 H (38-126) U/L NT-Pro-B Natriuret Pep 195 H Cancelled (19.9-100) pg/mL Total Protein 8.0 (6.3-8.2) g/dL Albumin 4.0 (3.5-5.1) g/dL <Gigi Castillo MD - Last Filed: 04/06/24 21:35> Imaging Data Radiologist's impression: ITS Impressions Venous Doppler Study 04/06/24 17:07 IMPRESSION: 1. No deep venous thrombosis within the visualized portions of the bilateral lower extremities, as detailed above. Foot X-Ray 04/06/24 17:15 IMPRESSION: 1. No fracture. <Gigi Castillo MD - Last Filed: 04/06/24 21:35> Critical Care Time Critical Care Time Critical Care Time: No <Rufina Mcwilliams PA-C - Last Filed: 04/07/24 18:14> Discharge Plan Discharge Clinical Impression: Leg edema <Rufina Mcwilliams PA-C - Last Filed: 04/07/24 18:14> Patient Disposition: Home, Self-Care <Rufina Mcwilliams PA-C - Last Filed: 04/07/24 18:14> Condition: Stable <Rufina Mcwilliams PA-C - Last Filed: 04/07/24 18:14> Instructions: Antibiotic Form, Edema (ED) <Rufina Mcwilliams PA-C - Last Filed: 04/07/24 18:14> Additional Instructions: Please return to the emergency department if you develop severe and persistent chest pain, difficulty breathing, dizziness, leg swelling or if you are coughing up blood as these can be signs of a medical emergency. Please call your doctor for a follow up appointment to determine the need for further testing. <Rufina Mcwilliams PA-C - Last Filed: 04/07/24 18:14> Patient Language: Bahraini <Rufina Mcwilliams PA-C - Last Filed: 04/07/24 18:14> Follow-up/Referrals: Umesh,MD Pierre [Primary Care Provider] - 1 Week <Rufina Mcwilliams PA-C - Last Filed: 04/07/24 18:14>
--- OUTSIDE RECORDS SUMMARY | 2024-04-06 16:21 | XMS_ITS | Clinical Summary ---
Author Organization [facility] Address [address] [place] [address]. [place] [address] [place] [address] Care Team Providers Care Circulation Worker Name Role Phone Unavailable Primary Care Provider [...]
--- OUTSIDE RECORDS SUMMARY | 2024-04-06 16:21 | XMS_ITS | Encounter Summary ---
Author Organization [facility] Address [address] [facility] [place] [address] Care Team Providers Care Door Opener Name Role Phone Pierre Calvo Primary Care Provider [facility] Alcides Berry MD Primary Care Provider [phone] Pierre Calvo MD Primary Care Provider [phone] Reason for Visit * Reason Onset Date Comments Appointment 11/05/2021 Encounter Details Date Type Department Care Team (Late st Contact Info) Description 11/05/2021 Telephone [facility] [address] [place] [address] Pierre Calvo Update Information Appointment Social History [...] BRANDIE was 01/23/2019 Patient Call Back number: [phone] documented in this encounter Plan of Treatment Upcoming Encounters Date Type Department Care Team (Late st Contact Info) Description 04/10/2024 3:00 PM GAS TRUCK DRIVER [facility]rology [address] [place] [address], [place] [address] Scooter George MD [address] [place] [address] [address] [place] [address] 06/15/2024 3:00 PM CDT [facility] - GI [address] [place] [address], [place] [phone] Lisa Huang, ANIMAL ANATOMIST-ORACLE PROGRAMMER ANALYST [address] [place] [address] [address] [place] [address] documented as of this encounter Goals Goal Patient Goal Type Associated Problems Recent Progress Patient-Stated? Author Medication Management General On track( 024 4:13 PM CDT) Kelly Driscoll, RN Note: Expected end date: ongoing Interventions: Take all medications as prescribed documented as of this encounter Visit Diagnoses Not on filedocumented in this encounter Care Teams Door Opener Relationship Specialty Start Date End Date Pierre Calvo Update Information PCP - General 09/22/19 12/01/22 Alcides Schultz MD [address] [place] [address] PCP - General Internal Medicine 12/02/22 01/06/23 Pierre Calvo MD [address] [place] [phone] PCP - General Family Medicine 01/07/23 documented as of this encounter
--- OUTSIDE RECORDS SUMMARY | 2024-04-06 16:21 | XMS_ITS | Clinical Summary ---
Author Organization [facility] Address [address] [place] [address] Phone Care Team Providers Care Cashier General Name Role Phone Jorge Poole MD Primary Care Provider [phone] Allergies No known active allergies Medications polyethylene glycol (MIRALAX) Powder Use entire 255g bottle with 64oz of clear liquid as directed for colonoscopy prep. 255 g 0 7 Active Additional Information Patient not taking.Reported on 09/04/2018 rosuvastatin (CRESTOR) 40 MG Tablet Take 40 mg by mouth daily. Active ergocalciferol (VITAMIN D) 39514 UNIT Capsule Take 50,000 Units by mouth. [...] Insurance MEDICAID [employer] Care Teams Cashier General Relationship Specialty Start Date End Date Jorge Poole MD [address] [place] [address] PCP - General Family Medicine 05/03/16
--- OUTSIDE RECORDS SUMMARY | 2024-04-06 16:21 | XMS_ITS | Encounter Summary ---
Author Organization [facility] Address [address] [facility] [place] [address] Care Team Providers Care Rail Walker Name Role Phone Alcides Schultz MD Primary Care Provider [phone] Pierre Calvo MD Primary Care Provider [phone] Reason for Visit * Reason Onset Date Comments Reschedule Appointment 12/27/2022 Encounter Details Date Type Department Care Team ([facility] Contact Info) Description 12/27/2022 Telephone [facility] - Centralized Scheduling [address] [place] [phone] Sarah Smith MD [address] [address] Reschedule Appointment Social History Tobacco [...] st Contact Info) Description 04/10/2024 3:00 PM RN PATIENT CARE Procedure visit [facility] - Neurology [facility] ([place], [place]), [place] [address] Scooter George MD [address] [facility] [address] [place] [address] 06/15/2024 3:00 PM CDT Office Visit [facility] - GI [address] [place] [address], [place] [address] Lisa Huang, ICU CLERK-TRANSPORT TANK TECHNICIAN [address] [facility] 2L [place] [address] documented as of this encounter Goals Goal Patient Goal Type Associated Problems Recent Progress Patient-Stated? Author Medication Management General On track( 024 4:13 PM CDT) Kelly Driscoll, RN Note: Expected end date: ongoing Interventions: Take all medications as prescribed documented as of this encounter Visit Diagnoses Not on filedocumented in this encounter Care Teams Rail Walker Relationship Specialty Start Date End Date Alcides Schultz MD [address] [place] [phone] PCP - General Internal Medicine 12/02/22 01/06/23 Pierre Calvo MD [address] [place] [phone] PCP - General Family Medicine 01/07/23 documented as of this encounter
--- OUTSIDE RECORDS SUMMARY | 2024-04-06 16:21 | XMS_ITS | Encounter Summary ---
Author Organization [facility] Address [address] [place] [address] Care Team Providers Care Power Lineworker Name Role Phone Pierre Calvo Primary Care Provider [facility] Alcides Berry MD Primary Care Provider [phone] Pierre Calvo MD Primary Care Provider [phone] Reason for Visit * Reason Onset Date Comments Future Appointment 01/18/2022 Encounter Details Date Type Department Care Team (Late st Contact Info) Description 01/18/2022 Telephone [facility] [address] [place] [address] Sarah Smith MD [address] [place] [address] Future Appointment Social History Tobacco [...] Elizabeth Lechuga, RN - 02/17/2022 11:[address] REFEREE Received call from Rossy at [facility] requesting Referral for PT be faxed to [phone]. Order faxed with face sheet as requested. FIC COURT REFEREE * Telephone Encounter - Jessenia Montero - 01/18/2022 12:42 PM CST Mr Bowen called to reschedule his appt that was cancelled for today. Please contact David at [phone] to reschedule his Botox appointment. Thanks FIC COURT REFEREE documented in this encounter Plan of Treatment Upcoming Encounters Date Type Department Care Team (Late st Contact Info) Description 04/10/2024 3:[address] REFEREE Procedure visit [facility] - Neurology [address] [place] [address], [place] [phone] Scooter George MD [address] [place] [address] [address] [place] [address] 06/15/2024 3:00 PM CDT Office Visit [facility] - GI [address] [place] [address], [place] [address] Lisa Huang, FINE ARTS PACKER-CREDIT CASHIER [address] [place] [address] 2[address] DIV [place] [address] documented as of this encounter Goals Goal Patient Goal Type Associated Problems Recent Progress Patient-Stated? Author Medication Management General On track( 024 4:13 PM CDT) Kelly Driscoll, RN Note: Expected end date: ongoing Interventions: Take all medications as prescribed documented as of this encounter Visit Diagnoses Not on filedocumented in this encounter Care Teams Power Lineworker Relationship Specialty Start Date End Date Pierre Calvo Update Information PCP - General 09/22/19 12/01/22 Alcides Schultz MD [address] [place] [address] PCP - General Internal Medicine 12/02/22 01/06/23 Pierre Calvo MD [address] [place] [phone] PCP - General Family Medicine 01/07/23 documented as of this encounter
--- OUTSIDE RECORDS SUMMARY | 2024-04-06 16:22 | XMS_ITS | Referral Summary ---
Author Organization [facility] Address [address] [place] [address] Care Team Providers Care Grinding Wheel Facer Name Role Phone Pierre Calvo MD Primary Care Provider [phone] Source Comments [facility],non-owned Affiliates and Associated Physician Practices is amultiple site organization consisting of ambulatory clinics and hospital sitesin [place], [place], [place] and [place]. This disclosure is being madepursuant to the Care Everywhere program and may not contain all information available regarding this patient. Last updated 17.[facility] Encounters Date Type Department Care Team Description 02/27/2024 Travel 02/27/2024 11:19 AM HYPO DIPPER - 02/27/2024 11:59 PM [facility] Hospital Encounter [facility] OP DRAW STATION [address] [place] [address] [phone] Discharge Disposition: Home or Self Care from [...] as needed Active ergocalciferol (Drisdol) 1.25 MG (22444 UT) capsule ergocalciferol (vitamin D2) 1,250 mcg [...] 03/23/2023 Immunizations Name Administration Dates Next Due [employer]kite BIVALENT 12Y+ 30mcg/0.3ML 2 HEP A VACCINE, [...] st Contact Info) Description 04/10/2024 3:00 PM HYPO DIPPER Procedure visit [facility] - Neurology [address] [place] [address], [place] [phone] Scooter George MD [address] [place] [address] [address] [place] [address] 06/15/2024 3:00 PM CDT Office Visit [facility] - GI [address] [place] [address], [place] [address] Lisa Huang, [employer] [employer] [address] [place] [address] [address] [place] [address] Goals Goal Patient Goal Type Associated Problems Recent Progress Patient-Stated? Author Medication Management General On track( 024 4:13 PM CDT) Kelly Driscoll, RN Note: Expected end date: ongoing Interventions: Take all medications as prescribed Procedures Procedure Name Priority Date/Time Associated Diagnosis Comments COMPREHENSIVE METABOLIC PANEL Routine 02/27/2024 12:18 PM HYPO DIPPER Hyperbilirubinemia CBC W AUTO DIFFERENTIAL Routine 02/27/2024 12:18 PM HYPO DIPPER Hyperbilirubinemia HEPATITIS C RNA QUANTITATIVE Routine 11/02/2018 3:45 PM CDT Elevated liver enzymes from Last 3 Months or Most Recently Relevant to Health Maintenance Results * (ABNORMAL) CBC WITH DIFFERENTIAL (02/27/2024 12:18 PM [facility]) WBC 6.9 4.0 - 10.7 x10E9/L 02/27/2024 1:28 PM [facility] RBC Count 4.85 4.30 - 5.80 x10E12/L 02/27/2024 1:28 PM [facility] Hemoglobin 14.6 13.3 - 17.5 g/dL 02/27/2024 1:28 PM [facility] Hematocrit 43.0 38.7 - 51.1 % 02/27/2024 1:28 PM [facility] MCV 88.7 80.0 - 98.0 fL 02/27/2024 1:28 PM [facility] MCH 30.1 26.7 - 33.6 pg 02/27/2024 1:28 PM [facility] MCHC 34.0 31.7 - 36.3 g/dL 02/27/2024 1:28 PM [facility] RDW-CV 12.4 11.3 - 14.8 % 02/27/2024 1:28 PM [facility] Platelet Count 226 150 - 420 x10E9/L 02/27/2024 1:28 PM [facility] MPV 12.1(H) 7.8 - 11.4 fL 02/27/2024 1:28 PM [facility] Neutrophil % 68.4 41.0 - 74.0 % 02/27/2024 1:28 PM [facility] Lymphocyte % 20.4 17.0 - 47.0 % 02/27/2024 1:28 PM [facility] Monocyte % 6.5 3.0 - 11.0 % 02/27/2024 1:28 PM [facility] Eosinophil % 4.2 0.0 - 7.0 % 02/27/2024 1:28 PM [facility] Basophil % 0.4 0.0 - 1.6 % 02/27/2024 1:28 PM [facility] Immature Granulocytes % 0.1 0.0 - 1.0 % 02/27/2024 1:28 PM [facility] Neutrophil Absolute 4.72 1.60 - 7.50 x10E9/L 02/27/2024 1:28 PM [facility] Lymphocyte Absolute 1.41 1.00 - 4.40 x10E9/L 02/27/2024 1:28 PM [facility] Monocyte Absolute 0.45 0.15 - 1.00 x10E9/L 02/27/2024 1:28 PM [facility] Eosinophil Absolute 0.29 0.00 - 0.60 x10E9/L 02/27/2024 1:28 PM [facility] Basophil Absolute 0.03 0.00 - 0.13 x10E9/L 02/27/2024 1:28 PM [facility] Blood BLOOD SPECIMEN / Unknown Lab Venipuncture / Unknown 02/27/2024 12:18 PM HYPO DIPPER 02/27/2024 1:02 PM [facility] Lisa Huang [employer] - HEMATO LOGY ORDERABLES Performing Organization Address City/[facility] Co de Phone Number [facility] [address] [place] [id number], [facility] [phone] * (ABNORMAL) COMPREHENSIVE METABOLIC PANEL (02/27/2024 12:18 PM HYPO DIPPER) BUN 14 7 - 26 mg/dL 02/27/2024 2:02 PM [facility] Creatinine 1.11 0.71 - 1.16 mg/dL 02/27/2024 2:02 PM [facility] Sodium 140 136 - 145 mmol/L 02/27/2024 2:02 PM [facility] Potassium 4.1 3.5 - 4.5 mmol/L 02/27/2024 2:02 PM [facility] Chloride 106 98 - 107 mmol/L 02/27/2024 2:02 PM [facility] CO2 26 22 - 29 mmol/L 02/27/2024 2:02 PM [facility] Glucose 97 70 - 99 mg/dL 02/27/2024 2:02 PM [facility] Calcium 8.9 8.4 - 10.2 mg/dL 02/27/2024 2:02 PM [facility] Protein Total 7.3 6.0 - 8.3 g/dL 02/27/2024 2:02 PM [facility] Albumin 4.0 3.4 - 5.0 g/dL 02/27/2024 2:02 PM [facility] Bilirubin Total 1.3(H) 0.2 - 1.2 mg/dL 02/27/2024 2:02 PM [facility] Alkaline Phosphatase 148 40 - 150 U/L 02/27/2024 2:02 PM [facility] ALT 49 5 - 55 U/L 02/27/2024 2:02 PM [facility] AST 33 5 - 34 U/L 02/27/2024 2:02 PM [facility] Anion Gap 8 6 - 16 02/27/2024 2:02 PM [facility] BUN/Creatinine Ratio 13 7 - 23 02/27/2024 2:02 PM [facility] Osmolality Calculated 290 275 - 295 mOsm/kg 02/27/2024 2:02 PM [facility] Albumin/Globulin Ratio 1.2 1.1 - 2.3 02/27/2024 2:02 PM [facility] eGFR by CKD-EPI 75(L) >=90 mL/min/1.7 3 m2 02/27/2024 2:02 PM [facility] Blood BLOOD SPECIMEN / Unknown Lab Venipuncture / Unknown 02/27/2024 12:18 PM HYPO DIPPER 02/27/2024 1:04 PM HYPO DIPPER Lisa Huang [facility] - CHEMIS TRY ORDERABLES [facility] [address] [place] [address], [facility] [phone] * HEPATITIS C RNA QUANTITATIVE (11/02/2018 3:45 PM CDT) Hepatitis C RNA PCR, Interp Not Detected Not Detected 11/07/2018 8:35 PM CDT [facility] Blood BLOOD SPECIMEN / Unknown Lab Venipuncture / Unknown 11/02/2018 3:45 PM CDT 11/02/2018 4:04 PM CDT Narrative [facility] - 11/07/2018 8:35 PM CDT The Hepatitis C viral (HCV) RNA analysis utilized a serum sample, real-time reverse rubber molder PCR, and is reported as Not Detected, [...] the isolation of HCV RNA with reverse rubber molder of genomic HCV RNA followed by real-time PCR in the presence of an unrelated RNA internal control. ??The internal control ensures that RNA is isolated, and that no general significant inhibitors of the RT-PCR process are present. The analysis was performed using a [place] FDA approved test methodology ([place] Real Time HCV). Lisa Huang APRN-[facility] - CHEMIS TRY ORDERABLES [facility] [address] [facility] [phone] from Last 3 Months or Most Recently Relevant to Health Maintenance Care Teams Grinding Wheel Facer Relationship Specialty Start Date End Date Pierre Calvo MD [address] [place] [phone] PCP - General Family Medicine 01/07/23
--- OUTSIDE RECORDS SUMMARY | 2024-04-06 16:22 | XMS_ITS | Patient Health Summary ---
Author Organization [facility] Address [address] [place] [address] Care Team Providers Care Supervisor Irrigation Name Role Phone Pierre Calvo MD Primary Care Provider [phone] Note from [facility],non-owned Affiliates and Associated Physician Practices is amultiple site organization consisting of ambulatory clinics and hospital sitesin [place], [place], [place]. This disclosure is being madepursuant to the Care Everywhere program and may not contain all information available regarding this patient. Last updated 17.[facility] Allergies No known active allergies Medications * [...] as needed * ergocalciferol (Drisdol) 1.25 MG (98557 UT) capsule ergocalciferol (vitamin D2) 1,250 mcg [...] AUTO DIFFERENTIAL(Performed 02/27/2024) Performed for Hyperbilirubinemia * ND CHEMODENERV ONE EXTREM 1-4 MUSCLES(Performed 09/13/2023) Performed for Muscle spasticity * ND CHEMODENERV ONE EXTREM 1-4 MUSCLES(Performed 06/09/2023) Performed for Muscle spasticity * ND CHEMODENERV ONE EXTREM 1-4 MUSCLES(Performed 03/10/2023) Performed [...] 01/07/2023) Performed for Elevated liver enzymes * ND LIVER ELASTOGRAPHY(Performed 01/07/2023) Performed for Elevated liver enzymes * ND CHEMODENERV ONE EXTREM 1-4 MUSCLES(Performed 12/06/2022) Performed for Muscle spasticity * ND NDL EMG GDN CONJUNCT CHEMODNRVTJ(Performed 12/06/2022) Performed for Muscle spasticity * ND CHEMODENERV ONE EXTREM 1-4 MUSCLES(Performed 05/21/2022) Performed for Muscle spasticity * ND CHEMODENERV ONE EXTREM 1-4 MUSCLES(Performed 02/08/2022) Performed [...] for Pain of left hip joint * ND LIVER ELASTOGRAPHY(Performed 01/10/2019) Performed for Elevated liver [...] 11/02/2018) Performed for Elevated liver enzymes * [id number]-5-[id number] BLOOD PHENOTYPING PANEL(Performed 11/02/2018) Performed for Elevated liver enzymes * PCZFB-6-[id number] BLOOD(Performed 11/02/2018) Performed for Elevated liver enzymes [...] (ABNORMAL) CBC WITH DIFFERENTIAL (02/27/2024 12:18 PM PIECE DYE WORKER) Only the most recent of3 resultswithin the time period is included. WBC 6.9 4.0 - 10.7 x10E9/L 02/27/2024 1:28 PM PIECE DYE WORKER [facility] RBC Count 4.85 4.30 - 5.80 x10E12/L 02/27/2024 1:28 PM [facility] Hemoglobin 14.6 13.3 - 17.5 g/dL 02/27/2024 1:28 PM [facility] Hematocrit 43.0 38.7 - 51.1 % 02/27/2024 1:28 PM PIECE DYE WORKER [facility] MCV 88.7 80.0 - 98.0 fL 02/27/2024 1:28 PM [facility] MCH 30.1 26.7 - 33.6 pg 02/27/2024 1:28 PM [facility] MCHC 34.0 31.7 - 36.3 g/dL 02/27/2024 1:28 PM [facility] RDW-CV 12.4 11.3 - 14.8 % 02/27/2024 1:28 PM [facility] Platelet Count 226 150 - 420 x10E9/L 02/27/2024 1:28 PM [facility] MPV 12.1(H) 7.8 - 11.4 fL 02/27/2024 1:28 PM [facility] Neutrophil % 68.4 41.0 - 74.0 % 02/27/2024 1:28 PM [facility] Lymphocyte % 20.4 17.0 - 47.0 % 02/27/2024 1:28 PM [facility] Monocyte % 6.5 3.0 - 11.0 % 02/27/2024 1:28 PM [facility] Eosinophil % 4.2 0.0 - 7.0 % 02/27/2024 1:28 PM [facility] Basophil % 0.4 0.0 - 1.6 % 02/27/2024 1:28 PM [facility] Immature Granulocytes % 0.1 0.0 - 1.0 % 02/27/2024 1:28 PM [facility] Neutrophil Absolute 4.72 1.60 - 7.50 x10E9/L 02/27/2024 1:28 PM [facility] Lymphocyte Absolute 1.41 1.00 - 4.40 x10E9/L 02/27/2024 1:28 PM [facility] Monocyte Absolute 0.45 0.15 - 1.00 x10E9/L 02/27/2024 1:28 PM [facility] Eosinophil Absolute 0.29 0.00 - 0.60 x10E9/L 02/27/2024 1:28 PM [facility] Basophil Absolute 0.03 0.00 - 0.13 x10E9/L 02/27/2024 1:28 PM [facility] Blood BLOOD SPECIMEN / Unknown Lab Venipuncture / Unknown 02/27/2024 12:18 PM PIECE DYE WORKER 02/27/2024 1:02 PM [facility] Lisa Huang FISH CLEANER MACHINE TENDER-MEDICAL SCIENTIFIC OFFICER LAB - HEMATO LOGY ORDERABLES [facility] [address] [place] [address], [facility] [phone] * (ABNORMAL) COMPREHENSIVE METABOLIC PANEL (02/27/2024 12:18 PM PIECE DYE WORKER) Only the most recent of4 resultswithin the time period is included. BUN 14 7 - 26 mg/dL 02/27/2024 2:02 PM [facility] Creatinine 1.11 0.71 - 1.16 mg/dL 02/27/2024 2:02 PM [facility] Sodium 140 136 - 145 mmol/L 02/27/2024 2:02 PM [facility] Potassium 4.1 3.5 - 4.5 mmol/L 02/27/2024 2:02 PM [facility] Chloride 106 98 - 107 mmol/L 02/27/2024 2:02 PM [facility] CO2 26 22 - 29 mmol/L 02/27/2024 2:02 PM [facility] Glucose 97 70 - 99 mg/dL 02/27/2024 2:02 PM [facility] Calcium 8.9 8.4 - 10.2 mg/dL 02/27/2024 2:02 PM [facility] Protein Total 7.3 6.0 - 8.3 g/dL 02/27/2024 2:02 PM [facility] Albumin 4.0 3.4 - 5.0 g/dL 02/27/2024 2:02 PM [facility] Bilirubin Total 1.3(H) 0.2 - 1.2 mg/dL 02/27/2024 2:02 PM [facility] Alkaline Phosphatase 148 40 - 150 U/L 02/27/2024 2:02 PM [facility] ALT 49 5 - 55 U/L 02/27/2024 2:02 PM [facility] AST 33 5 - 34 U/L 02/27/2024 2:02 PM [facility] Anion Gap 8 6 - 16 02/27/2024 2:02 PM [facility] BUN/Creatinine Ratio 13 7 - 23 02/27/2024 2:02 PM [facility] Osmolality Calculated 290 275 - 295 mOsm/kg 02/27/2024 2:02 PM [facility] Albumin/Globulin Ratio 1.2 1.1 - 2.3 02/27/2024 2:02 PM [facility] eGFR by CKD-EPI 75(L) >=90 mL/min/1.7 3 m2 02/27/2024 2:02 PM [facility] Blood BLOOD SPECIMEN / Unknown Lab Venipuncture / Unknown 02/27/2024 12:18 PM PIECE DYE WORKER 02/27/2024 1:04 PM PIECE DYE WORKER Lisa Huang FISH CLEANER MACHINE TENDER-MEDICAL SCIENTIFIC OFFICER LAB - CHEMIS TRY ORDERABLES [facility] [address] [place] [address], [facility] [phone] * ND CHEMODENERV ONE EXTREM 1-4 MUSCLES (09/13/2023 1:05 PM CDT) Narrative Sarah Smith MD - 09/13/2023 1:05 PM CDT Sarah Smith MD ? 09/13/2023 ??1:06 PM Please see procedure notes Sarah Nava MD PROCEDURE/MIGUEL ANGEL R SURGICAL ORDERABLES * ND CHEMODENERV ONE EXTREM 1-4 MUSCLES (06/09/2023 3:41 PM CDT) Narrative Sarah Smith MD - 06/09/2023 3:41 PM CDT Sarah Smith MD ? 06/09/2023 ??3:42 PM Please see procedure notes Sarah Nava MD PROCEDURE/MIGUEL ANGEL R SURGICAL ORDERABLES * ND CHEMODENERV ONE EXTREM 1-4 MUSCLES (03/10/2023 2:41 PM PIECE DYE WORKER) Narrative Sarah Smith MD - 03/10/2023 2:41 PM PIECE DYE WORKER Sarah Smith MD ? 03/10/2023 ??2:42 PM Please see procedure notes Sarah Nava MD PROCEDURE/MIGUEL ANGEL R SURGICAL ORDERABLES * (ABNORMAL) AMARJIT BLOOD SINGLE PATTERN (03/10/2023 12:39 PM PIECE DYE WORKER) Only the most recent of2 resultswithin the time period is included. AMARJIT Pattern Homogeneo us(A) 03/12/2023 11:26 PM PIECE DYE WORKER [facility]) AMARJIT Titer 1:160(A) 03/12/2023 11:26 PM PIECE DYE WORKER [facility] ([facility]) Comment: Performed By: [facility] [address] [place] [address] Balcony Worker: Bruno Brown MD, PhD CLIA Number: [id number] Blood BLOOD SPECIMEN / Unknown Lab Venipuncture / Unknown 03/10/2023 12:39 PM PIECE DYE WORKER 03/10/2023 1:06 PM PIECE DYE WORKER Lisa Huang FISH CLEANER MACHINE TENDER-MEDICAL SCIENTIFIC OFFICER LAB - CHEMIS TRY ORDERABLES [facility]) [address] [place] [address], [facility] * (ABNORMAL) AMARJIT HEP-2 IGG BY IFA (03/10/2023 12:39 PM PIECE DYE WORKER) Only the most recent of2 resultswithin the time period is included. AMARJIT HEp-2 IgG Detected (H) <1:80 03/12/2023 11:26 PM PIECE DYE WORKER [facility] ([facility]) AMARJIT Interpretive Comment See Note 03/12/2023 11:26 PM PIECE DYE WORKER [facility] ([facility]) Comment: Homogeneous Pattern Clinical associations: SLE, drug-induced [...] not necessarily rule out SARD. Performed By: [facility] [address] [place] [address] Balcony Worker: Bruno Brown MD, PhD CLIA Number: [id number] Blood BLOOD SPECIMEN / Unknown Lab Venipuncture / Unknown 03/10/2023 12:39 PM PIECE DYE WORKER 03/10/2023 1:06 PM PIECE DYE WORKER Lisa Huang FISH CLEANER MACHINE TENDER-MEDICAL SCIENTIFIC OFFICER LAB - SEROLO GY ORDERABLES [facility] ([facility]) [address] [place] [address], [facility] * (ABNORMAL) AMARJIT BLOOD SCREEN W/REFLEX TITER (03/10/2023 12:39 PM PIECE DYE WORKER) Only the most recent of3 resultswithin the time period is included. Pathologist [facility] AMARJIT IgG Detected (A) None Detected 03/12/2023 8:35 AM PIECE DYE WORKER [facility] ([facility]) Comment: Antibodies to Anti-Nuclear Antibodies (AMARJIT) detected. [...] dsDNA, histones, SS-A (Ro), SS-B (La), Kowalski, Kowalski/MANAGER ARCHITECTURE, Scl-70, Vianey-1, centromeric proteins, other antigens extracted from the HEp-2 cell nucleus. AMARJIT MAYKEL assays have been reported to have lower sensitivities than AMARJIT IFA for systemic autoimmune rheumatic diseases (SARD). Negative results do not necessarily rule out SARD. Performed By: [facility] [address] [place] [address] Balcony Worker: Bruno Brown MD, PhD CLIA Number: [id number] Blood BLOOD SPECIMEN / Unknown Lab Venipuncture / Unknown 03/10/2023 12:39 PM PIECE DYE WORKER 03/10/2023 1:06 PM PIECE DYE WORKER Lisa Huang APRN-MEDICAL SCIENTIFIC OFFICER LAB - CHEMIS TRY ORDERABLES [facility]) [address] [place] [address] * IGG BLOOD (03/10/2023 12:39 PM PIECE DYE WORKER) IgG 1,301 767 - 1,590 mg/dL 03/10/2023 1:41 PM PIECE DYE WORKER [facility] Blood BLOOD SPECIMEN / Unknown Lab Venipuncture / Unknown 03/10/2023 12:39 PM PIECE DYE WORKER 03/10/2023 1:28 PM PIECE DYE WORKER Lisa Huang FISH CLEANER MACHINE TENDER-MEDICAL SCIENTIFIC OFFICER LAB - CHEMIS TRY ORDERABLES [address] [address], [place] [phone] * SMOOTH MUSCLE ANTIBODY W REFLEX TITER (01/07/2023 3:13 PM CDT) F-Actin Antibody IgG 5 0 - 19 Units 01/09/2023 12:08 AM CDT [facility] ([facility]) Comment: If F-Actin (Smooth Muscle) Antibody, IgG [...] suspicion for AIH is strong. Performed By: [facility] [address] [place] [id number] Balcony Worker: Bruno Brown MD, PhD CLIA Number: [id number] Blood BLOOD SPECIMEN / Unknown Lab Venipuncture / Unknown 01/07/2023 3:13 PM CDT 01/07/2023 3:20 PM CDT Lisa Huang FISH CLEANER MACHINE TENDER-MEDICAL SCIENTIFIC OFFICER LAB - SEROLO GY ORDERABLES [facility] [employer] ([facility]) [address] * MITOCHONDRIAL ANTIBODY SCREEN (01/07/2023 3:13 PM CDT) Only the most recent of2 resultswithin the time period is included. Mitochondrial M2 Antibody 2.3 0.0 - 24.9 Units 01/08/2023 11:48 PM CDT [facility] [employer] ([facility]) Comment: REFERENCE INTERVAL: Mitochondrial (M2) Antibody, IgG [...] does not rule out PBC. Performed By: [facility] [address] [place] [address] Balcony Worker: Bruno Brown MD, PhD CLIA Number: [id number] Blood BLOOD SPECIMEN / Unknown Lab Venipuncture / Unknown 01/07/2023 3:13 PM CDT 01/07/2023 3:20 PM CDT Lisa Huang APRN-[facility] LAB - CHEMIS TRY ORDERABLES Performing Organization Address City/[facility]/ZIP Co de Phone Number [facility] [employer] ([facility]) [address] * (ABNORMAL) ALKALINE PHOSPHATASE BLOOD ISOENZYME PANEL (01/07/2023 3:13 PM CDT) Alkaline Phosphatase Isoenzymes Bone 33 0 - 55 U/L 01/10/2023 3:01 AM PIECE DYE WORKER [facility] ([facility]) Alkaline Phosphatase Isoenzymes 137(H) 40 - 120 U/L 01/10/2023 3:01 AM [facility] ([facility]) Alkaline Phosphatase Isoenzymes Liver 104(H) 0 - 94 U/L 01/10/2023 3:01 AM [facility] ([facility]) Comment: INTERPRETIVE INFORMATION: Alk-Phosphatase Liver Calc Bone Specific Alkaline Phosphatase (2504615) and 5'-nucleotidase (8999779) may be useful in identifying disorders of bone and liver, respectively. Alkaline Phosphatase Isoenzymes Other 0 U/L 01/10/2023 3:01 AM [facility]) Comment: Performed By: [facility] [address] [place] [address] Balcony Worker: Bruno Brown MD, PhD CLIA Number: [id number] Blood BLOOD SPECIMEN / Unknown Lab Venipuncture / Unknown 01/07/2023 3:13 PM CDT 01/07/2023 3:20 PM CDT Lisa Huang FISH CLEANER MACHINE TENDER-MEDICAL SCIENTIFIC OFFICER LAB - CHEMIS TRY ORDERABLES Performing Organization Address City/[facility]/ZIP Co de Phone Number [facility]) [address] [place] [phone] [place] [address] * GGT (01/07/2023 3:13 PM CDT) GGT 11 9 - 64 Units/L 01/07/2023 3:51 PM CDT [facility] Blood BLOOD SPECIMEN / Unknown Lab Venipuncture / Unknown 01/07/2023 3:13 PM CDT 01/07/2023 3:23 PM CDT Lisa Huang FISH CLEANER MACHINE TENDER-MEDICAL SCIENTIFIC OFFICER LAB - CHEMIS TRY ORDERABLES [facility] [address] [place] [address], [facility] [phone] * ND LIVER ELASTOGRAPHY (01/07/2023 1:49 PM CDT) Narrative [...] patients with nonalcoholic fatty liver disease. Gastroenterology 2019;156:4848-8002. Alisa STEWART, Silvino R, Van Hiram HINDS, [...] at-risk nonalcoholic steatohepatitis (VAZQUEZ) in a [place] cohort and comparison to other non-invasive algorithms. PLoS ONE (2021) 17: [id number]. Liudmila AJ, Kathleen J, Rachel ZM, et al. Enhanced diagnosis of advanced fibrosis and cirrhosis in individuals with NAFLD using FibroScan-based Agile scores. J Hepatol (2022) 78: 247-259. Fibroscan LSM can also be used with laboratory parameters without formulas to assess prognosis. According to the Baveno-VII criteria ([place], 202), Fibroscan LSM ?15 kPa plus a platelet count of ?461n738/L rules out clinically significant portal hypertension (sensitivity [...] FIB-4 score (Romeluke et al. Hepatology Communications 2019;3:4531-7812) or NAFLD Fibrosis score (Rhoades et al. Clinical Gastroenterology and Hepatology 2019;17:9286-2704 using ??routine clinical data. Note: 1. Fibroscan [...] additional interpretive data was last updated 07/10/22.) [email or web address] Lisa Huang FISH CLEANER MACHINE TENDER-MEDICAL SCIENTIFIC OFFICER PROCEDURE/NM NOR SURGICAL ORDERABLES * ND NDL EMG GDN CONJUNCT CHEMODNRVTJ, ND CHEMODENERV ONE EXTREM 1-4 MUSCLES (12/06/2022 10:11 AM CDT) Sarah Francis MD - 12/06/2022 10:11 AM CDT Sarah Smith MD ? 12/06/2022 10:13 AM Please see procedure notes Sarah Nava MD PROCEDURE/MIGUEL ANGEL R SURGICAL ORDERABLES * ND CHEMODENERV ONE EXTREM 1-4 MUSCLES (05/21/2022 9:51 AM CDT) Sarah Francis MD - 05/21/2022 9:51 AM CDT Sarah Smith MD ? 05/21/2022 ??9:54 AM Please see procedure notes Sarah Nava MD PROCEDURE/MIGUEL ANGEL R SURGICAL ORDERABLES * ND CHEMODENERV ONE EXTREM 1-4 MUSCLES (02/08/2022 10:12 AM PIECE DYE WORKER) Sarah Francis MD - 02/08/2022 10:12 AM PIECE DYE WORKER Sarah Smith MD ? 02/08/2022 10:15 AM Please see procedure notes Sarah Nava MD PROCEDURE/MIGUEL ANGEL R SURGICAL ORDERABLES * (ABNORMAL) COMP MET PANEL (EXTERNAL RESULT ENTRY) (01/05/2021) Only the most recent of4 resultswithin the time period is included. Glucose (EXTERNAL) 95 mg/dL [facility] Sodium (EXTERNAL RESULT) 142 mmol/L [facility] Potassium (EXTERNAL RESULT) 4.7 mmol/L [facility] Chloride (EXTERNAL RESULT) 105 mmol/L [facility] CO2 (EXTERNAL) 28 mmol/L [facility] Calcium (EXTERNAL RESULT) 9.3 mg/dL [facility] Anion Gap (EXTERNAL RESULT) 13.7(A) 14 - 22 mmol/L [facility] BUN (EXTERNAL RESULT) 15 mg/dL [facility] Creatinine (EXTERNAL RESULT) 0.79 mg/dl [facility] Alkaline Phosphatase (EXTERNAL RESULT) 103 U/L [facility] ALT (EXTERNAL RESULT) 20 U/L [facility] AST (EXTERNAL RESULT) 28 U/L [facility] Protein Total (EXTERNAL RESULT) 7.7 gm/dL [facility] Albumin (EXTERNAL RESULT) 4.3 gm/dL [facility] Bilirubin Total (EXTERNAL RESULT) 2.60(A) 0.20 - 1.30 mg/dL [facility] eGFR MDRD (EXTERNAL RESULT) [facility] eGFR (EXTERNAL) [facility] Blood BLOOD SPECIMEN / Unknown 01/05/2021 Historical Provider LAB - CHEMISTRY O RDERABLES [facility] [address] [place] [address], [facility] [phone] * LAB RESULTS ORDER (11/25/2020 10:05 AM [...] of2 resultswithin the time period is included. [facility] Magnesium (EXTERNAL RESULT) 2.1 mg/dl Blood BLOOD SPECIMEN / Unknown 10/01/2020 Historical Provider LAB - CHEMISTRY O RDERABLES * (ABNORMAL) URINALYSIS (EXTERNAL RESULT ENTRY) (10/01/2020) [facility] pH UA (EXTERNAL RESULT) 5.5 Specific [place] Urine (EXTERNAL RESULT) 1.037(H) 1.001 - 1.030 [...] of2 resultswithin the time period is included. [facility] Vitamin D Hydroxy (External Result) 30.2 Blood 10/01/2020 Historical Provider LAB - CHEMISTRY O RDERABLES * (ABNORMAL) LIPID PROFILE (EXTERAL RESULT ENTRY) (10/01/2020) Only the most recent of3 resultswithin the time period is included. [facility] Cholesterol (EXTERNAL RESULT) 236(H) 140 - 199 [...] LARSON on 09/24/2019 2:20PM . Lisa Huang FISH CLEANER MACHINE TENDER-MEDICAL SCIENTIFIC OFFICER US ORDERABLE S * PSA TOTAL (EXTERNAL RESULT ENTRY) (09/21/2019) PSA Total (EXTERNAL RESULT) 0.68 0.00 - 4.00 NG/ML Blood BLOOD SPECIMEN / Unknown 09/21/2019 Historical Provider LAB - CHEMISTRY O RDERABLES * XR PELVIS W LEFT HIP 2VW (01/23/2019 3:50 PM PIECE DYE WORKER) Only the most recent of6 resultswithin the time period is included. Anatomical Region Laterality Modality Radiographic Migdalia ging 01/24/2019 7:20 AM PIECE DYE WORKER Impressions 01/24/2019 7:21 AM PIECE DYE WORKER IMPRESSION: Left hip hemiarthroplasty. This report was electronically signed by ROOSEVELT ISAACS MD ??on 01/24/2019 7:21 AM . Narrative 01/24/2019 7:21 AM PIECE DYE WORKER Exam: ??XR PELVIS W LEFT HIP 2VW [...] Nava MD DIAGNOSTIC MIGDALIA GING ORDERABLES * ND LIVER ELASTOGRAPHY (01/10/2019 10:10 PM PIECE DYE WORKER) Narrative Phoenix Woodall MD - 01/10/2019 10:10 PM PIECE DYE WORKER Phoenix Woodall MD ? 01/10/2019 10:11 PM [...] Technical Difficulty: None Ordering Provider: Lisa Huang LIBERAL ARTS TEACHER Phone Fax Fibroscan interpretation: I have personally [...] change as additional supporting data becomes available. [email or web address] Lisa Huang FISH CLEANER MACHINE TENDER-MEDICAL SCIENTIFIC OFFICER PROCEDURE/NM NOR SURGICAL ORDERABLES * T4 FREE (EXTERNAL RESULT ENTRY) (01/09/2019) T4 Free (EXTERNAL RESULT) 1.52 0.89 - 2.19 ng/dl Blood BLOOD SPECIMEN / Unknown 01/09/2019 Historical Provider LAB - CHEMISTRY O RDERABLES * PT-INR [facility] (11/02/2018 3:45 PM CDT) PT 12.8 12.1 - 14.8 Seconds 11/02/2018 4:44 PM CDT [facility] INR 1.0 See Comment 11/02/2018 4:44 PM CDT [facility] Comment: The suggested therapeutic range for standard coumadin (warfarin) therapy is an INR of 2.0-3.0. For high-risk patients (Mechanical Mitral Valve Prosthesis, etc.), the suggested prophylactic therapeutic range is an INR of 2.5-3.5. Blood BLOOD SPECIMEN / Unknown Lab Venipuncture / Unknown 11/02/2018 3:45 PM CDT 11/02/2018 4:05 PM CDT Lisa Huang FISH CLEANER MACHINE TENDER-MEDICAL SCIENTIFIC OFFICER LAB - COAGUL ATION ORDERABLES [facility] [address] [phone] * [id number]-[id number] BLOOD PHENOTYPING PANEL (11/02/2018 3:45 PM CDT) Xqbki-1-Nkpegkukdz n 128 90 - 200 mg/dL 11/07/2018 2:08 PM CDT [facility] ([facility]) Phenotype (PI) MM 11/07/2018 2:08 PM CDT [facility] ([facility]) Comment: ? Phenotype ?? Population ?A-1-AT Concentration [...] Narrative [facility] ([facility]) - 11/07/2018 2:08 PM CDT Performed at: ??01 - [facility] [address] [place], [place] ??[id number] Energy Management Specialist: Adelfo Mercedes PhD, Phone: ??[phone] Performed at: ??02 - [address] ??[id number] Energy Management Specialist: Cris Partida MD, Phone: ??[phone] Lisa Huang APRN-MEDICAL SCIENTIFIC OFFICER LAB - CHEMIS TRY ORDERABLES Performing Organization Address City/[facility]/ZIP Co de Phone Number [facility]) [address] [place] [address] * HEPATITIS C RNA QUANTITATIVE (11/02/2018 3:45 PM CDT) Hepatitis C RNA PCR, Interp Not Detected Not Detected 11/07/2018 8:35 PM CDT [facility] Blood BLOOD SPECIMEN / Unknown Lab Venipuncture / Unknown 11/02/2018 3:45 PM CDT 11/02/2018 4:04 PM CDT Narrative [facility] - 11/07/2018 8:35 PM CDT The Hepatitis C viral (HCV) RNA analysis utilized a serum sample, real-time reverse watch leader PCR, and is reported as Not Detected, [...] the isolation of HCV RNA with reverse watch leader of genomic HCV RNA followed by real-time PCR in the presence of an unrelated RNA internal control. ??The internal control ensures that RNA is isolated, and that no general significant inhibitors of the RT-PCR process are present. The analysis was performed using a U.S. FDA approved test methodology ([employer] Real Time HCV). Lisa Huang APRN-MEDICAL SCIENTIFIC OFFICER LAB - CHEMIS TRY ORDERABLES [facility] [address] [phone] * CERULOPLASMIN (11/02/2018 3:45 PM CDT) Ceruloplasmin 32 20 - 60 mg/dL 11/02/2018 4:57 PM CDT [facility] Blood BLOOD SPECIMEN / Unknown Lab Venipuncture / Unknown 11/02/2018 3:45 PM CDT 11/02/2018 4:04 PM CDT Lisa Huang FISH CLEANER MACHINE TENDER-MEDICAL SCIENTIFIC OFFICER LAB - CHEMIS TRY ORDERABLES Performing Organization Address [facility] de Phone Number [address] [phone] * [id number] BLOOD (11/02/2018 3:45 PM CDT) Txycl-7-Dkcvxv ypsin 139 90 - 200 mg/dL 11/02/2018 4:57 PM CDT [facility] Blood BLOOD SPECIMEN / Unknown Lab Venipuncture / Unknown 11/02/2018 3:45 PM CDT 11/02/2018 4:04 PM CDT Lisa Huang APRN-MEDICAL SCIENTIFIC OFFICER LAB - [employer]PSoftware TRY ORDERABLES Performing Organization Address [facility] Phone Number [address] [phone] * SMOOTH MUSCLE ANTIBODY (11/02/2018 3:45 PM CDT) F-Actin Antibody IgG 6.6 0.0 - 19.9 Units 11/03/2018 11:04 AM CDT [facility] Comment: F-Actin Antibody Numeric Result Interpretation: ?<20.0 Units: ??Negative ?20.0 - 30.0 Units: ??Weak Positive ?>30.0 Units: ??Moderate to Strong Positive ? Blood BLOOD SPECIMEN / Unknown Lab Venipuncture / Unknown 11/02/2018 3:45 PM CDT 11/02/2018 4:04 PM CDT Lisa Huang FISH CLEANER MACHINE TENDER-MEDICAL SCIENTIFIC OFFICER LAB - SEROLO GY ORDERABLES Performing Organization Address [facility] Center de Phone Number [address] [phone] * (ABNORMAL) HEPATITIS B SURFACE ANTIBODY (11/02/2018 3:45 PM CDT) Hepatitis B Virus Surface Antibody Reactive( A) Non-react sharon 11/02/2018 5:17 PM CDT [facility] Comment: > 12 mIU/mL Hepatitis B surface Antibody (HBsAb). Reactive for HBsAb - individual is considered immune to Hepatitis B Virus infection. Hepatitis B Surface Antibody Quantitative 319.4(H) <8.0 mIU/mL 11/02/2018 5:17 PM CDT [facility] Comment: Hepatitis B Surface Antibody Numeric Result Interpretation: ? Nonreactive: ?<8.0 mIU/mL ? Indeterminate: ??8.0 - 12.0 mIU/mL ? Reactive: ?>12.0 mIU/mL ? Blood BLOOD SPECIMEN / Unknown Lab Venipuncture / Unknown 11/02/2018 3:45 PM CDT 11/02/2018 4:04 PM CDT Lisa Huang APRN-MEDICAL SCIENTIFIC OFFICER LAB - CHEMIS TRY ORDERABLES Performing Organization Address [facility] Co de Phone Number [address] [phone] * HEPATITIS B CORE ANTIBODY (11/02/2018 3:45 PM CDT) HBc Antibody Total Non-reacti ve Non-reacti ve 11/02/2018 5:15 PM CDT [facility] Blood BLOOD SPECIMEN / Unknown Lab Venipuncture / Unknown 11/02/2018 3:45 PM CDT 11/02/2018 4:04 PM CDT Lisa Huang FISH CLEANER MACHINE TENDER-MEDICAL SCIENTIFIC OFFICER LAB - CHEMIS TRY ORDERABLES Performing Organization Address City/[facility]/ZIP Co de Phone Number [address] [phone] * HEPATITIS B SURFACE ANTIGEN W RFLX CONFIRMATION (11/02/2018 3:45 PM CDT) Hepatitis B Virus Surface Antigen Non-reacti ve Non-reacti ve 11/02/2018 5:16 PM CDT [facility] Blood BLOOD SPECIMEN / Unknown Lab Venipuncture / Unknown 11/02/2018 3:45 PM CDT 11/02/2018 4:04 PM CDT Lisa Huang APRN-MEDICAL SCIENTIFIC OFFICER LAB - CHEMIS TRY ORDERABLES Performing Organization Address [facility] Co de Phone Number [address] [phone] * (ABNORMAL) HEPATITIS A ANTIBODY (11/02/2018 3:45 PM CDT) Hepatitis A Virus Antibody Total Positive(A ) Negative 11/04/2018 5:07 AM CDT [facility] ([facility]) Blood BLOOD SPECIMEN / Unknown Lab Venipuncture / Unknown 11/02/2018 3:45 PM CDT 11/02/2018 4:04 PM CDT Narrative [facility] ([facility]) - 11/04/2018 5:07 AM CDT Performed at: ??01 - [facility] [address] [place], [place] ??[id number] Energy Management Specialist: Adelfo Mercedes PhD, Phone: ??[phone] Lisa Huang FISH CLEANER MACHINE TENDER-MEDICAL SCIENTIFIC OFFICER LAB - CHEMIS TRY ORDERABLES Performing Organization Address City/[facility]/ZIP Co de Phone Number [facility] ([facility]) [address] [place] [address] * (ABNORMAL) CULTURE URINE (09/04/2013 4:08 PM CDT) Culture Urine ESCHERICHIA COLI(A) [facility] Comment:1,000,000 CFU/ML Esc herichia Coli Urine specimen (specimen) URINE SPECIMEN OBTAINED BY CLEAN CATCH PROCEDURE / Unknown 09/04/2013 4:08 PM CDT 09/04/2013 9:45 PM CDT Narrative [facility] - 09/07/2013 12:41 PM CDT AndersonSpecimen#[id number] Mathew Loc/Rm/Bed: ED// CLN CATCH U @09/04/13 [...] - MICROBIOLOG Y ORDERABLES Performing Organization Address City/State/[facility] Co de Phone Number [facility] [address] [place] [address] * CT HIP LEFT WO CONTRAST (07/15/2012 [...] is included. 07/06/2011 4:59 AM CDT Narrative [facility] - 07/06/2011 4:59 AM CDT Eduardo White MD LAB - MICROBIOLOGY ORDERABLES Performing Organization Address City/[facility] Co de Phone Number [address] * PATHOLOGY REPORTS - HPF HISTORICAL (01/05/2011 3:16 PM CDT) 01/05/2011 3:16 PM CDT Narrative [facility] - 01/05/2011 3:16 PM CDT Wan John MD LAB - PATHOLOGY/CYTO LOGY ORDERABLES [facility] Care Teams Supervisor Irrigation Relationship Specialty Start Date End Date Pierre Calvo MD [address] [place] [phone] PCP - General Family Medicine 01/07/23
--- OUTSIDE RECORDS SUMMARY | 2024-04-06 16:22 | XMS_ITS | Clinical Summary ---
Author Organization [facility] [employer] Address [address] [place] [address] Care Team Providers Care Newspaper Delivery Counselor Name Role Phone Pierre Calvo MD Primary Care Provider [phone] Source Comments [facility] [employer],non-owned Affiliates and Associated Physician Practices is amultiple site organization consisting of ambulatory clinics and hospital sitesin [place], [place], [place] and [place]. This disclosure is being madepursuant to the Care Everywhere program and may not contain all information available regarding this patient. Last updated 17.[employer] Allergies No known active allergies Medications * [...] as needed Active ergocalciferol (Drisdol) 1.25 MG (52977 UT) capsule ergocalciferol (vitamin D2) 1,250 mcg [...] Department Care Team Description 02/27/2024 11:19 AM PR[facility] ROUST[facility]OUT - 02/27/2024 11:59 PM [facility] ROUST[facility]OUT Hospital Encounter [facility] [facility] OP DRAW STATION [address] [place] [phone] Discharge Disposition: Home or Self Care 02/27/2024 Travel from Last 3 Months Immunizations Name Administration Dates Next Due Jianjian BIVALENT 12Y+ 30mcg/0.3ML 2 HEP A VACCINE, [...] st Contact Info) Description 04/10/2024 3:00 PM PR[facility] ROUSTABOUT Procedure visit [facility] - Neurology [address] [place] [address], [place] [phone] Scooter George MD [address] [place] [address] [address] [place] [phone] 06/15/2024 3:00 PM CDT Office Visit [facility] - GI [address] [place] [address], [place] [address] Lisa Huang, BEAUTY DIRECTOR-SERVER SERVICE ASSISTANT [address] [place] [address] [address] [place] [phone] Health Maintenance Due Date Last Done Comments [...] COMPREHENSIVE METABOLIC PANEL Routine 02/27/2024 12:18 PM [employer] [facility] Hyperbilirubinemia CBC W AUTO DIFFERENTIAL Routine 02/27/2024 12:18 PM [employer] [facility] Hyperbilirubinemia HEPATITIS C RNA QUANTITATIVE Routine 11/02/2018 3:45 PM CDT Elevated liver enzymes from Last 3 Months or Most Recently Relevant to Health Maintenance Results * (ABNORMAL) CBC WITH DIFFERENTIAL (02/27/2024 12:18 PM [facility]) WBC 6.9 4.0 - 10.7 x10E9/L 02/27/2024 1:28 PM [facility] RBC Count 4.85 4.30 - 5.80 x10E12/L 02/27/2024 1:28 PM [facility] Hemoglobin 14.6 13.3 - 17.5 [...] Lab Venipuncture / Unknown 02/27/2024 12:18 PM [facility] ROUST[facility]OUT 02/27/2024 1:02 PM [facility] Lisa Huang BEAUTY DIRECTOR-SERVER SERVICE ASSISTANT LAB - HEMATO LOGY ORDERABLES [facility] [address] [place] [address], [facility] [phone] * (ABNORMAL) COMPREHENSIVE METABOLIC PANEL (02/27/2024 12:18 PM [facility]) BUN 14 7 - 26 mg/dL 02/27/2024 [...] Lab Venipuncture / Unknown 02/27/2024 12:18 PM [facility]ST[facility]OUT 02/27/2024 1:04 PM [facility] Lisa Huang BEAUTY DIRECTOR-SERVER SERVICE ASSISTANT LAB - CHEMIS TRY ORDERABLES [facility] [address] [place] [phone], [facility] [phone] * HEPATITIS C RNA QUANTITATIVE (11/02/2018 3:45 PM CDT) Hepatitis C RNA PCR, Interp Not Detected Not Detected 11/07/2018 8:35 PM CDT [facility] Blood BLOOD SPECIMEN / Unknown Lab Venipuncture / Unknown 11/02/2018 3:45 PM CDT 11/02/2018 4:04 PM CDT Narrative [facility] - 11/07/2018 8:35 PM CDT The Hepatitis C viral (HCV) RNA analysis utilized a serum sample, real-time reverse private branch exchange repairer PCR, and is reported as Not Detected, [...] the isolation of HCV RNA with reverse private branch exchange repairer of genomic HCV RNA followed by real-time PCR in the presence of an unrelated RNA internal control. ??The internal control ensures that RNA is isolated, and that no general significant inhibitors of the RT-PCR process are present. The analysis was performed using a U.S. FDA approved test methodology (IdeaString Real Time HCV). Lisa Huang APRN-SERVER SERVICE ASSISTANT LAB - CHEMIS TRY ORDERABLES [facility] [address] [phone] from Last 3 Months or Most Recently Relevant to Health Maintenance Care Teams Newspaper Delivery Counselor Relationship Specialty Start Date End Date Pierre Calvo MD [address] [place] [address] PCP - General Family Medicine 01/07/23
[2024-04-06 18:14] LABS: Basophils Percent Auto 0.5 % (0.2-1.2); Eosinophils Absolute Auto 0.2 K/mm3 (0-0.3); Eosinophils Percent Auto 2.6 % (0-4.4); Hematocrit 43.7 % (42.0-52.0); Hemoglobin 14.9 g/dL (14.0-18.0); Immature Granulocyte Absolute 0.02 K/mm3 (0.00-0.031); Immature Granulocyte Percent A 0.2 % (0-0.5); Lymphocytes Absolute Auto 1.46 K/mm3 (0.9-3.2); Lymphocytes Percent Auto 16.6 % (18.3-44.2); Mean Corpuscular HGB Conc 34.1 g/dl (32-36); Mean Corpuscular Hemoglobin 31.1 pg (26-34); Mean Corpuscular Volume 91.2 fl (80-100); Mean Platelet Volume 11.2 fl (7.4-10.4); Monocytes Absolute Auto 0.6 K/mm3 (0.1-0.6); Monocytes Percent Auto 6.6 % (2.6-8.5); Neutrophils Absolute Auto 6.4 K/mm3 (1.3-6.7); Neutrophils Percent Auto 73.5 % (45.5-73.1); Platelet Count Result 266 k/mm3 (150-375); Red Blood Count 4.79 M/mm3 (4.6-6.20); Red Cell Distribution Width 12.6 % (11.5-14.5); White Blood Count 8.8 K/mm3 (4.5-10.0)
[2024-04-06 18:24] LABS: INR 1.1; Prothrombin Time 14.2 Seconds (11.1-14.7)
[2024-04-06 18:25] LABS: Partial Thromboplastin Time 28.6 Seconds (22.3-36.8)
[2024-04-06 18:30] LABS: Alanine Aminotransferase 23 U/L (6-50); Alkaline Phosphatase 215 U/L (38-126); Anion Gap 12 mmol/L (4-12); Aspartate Amino Transferase 28 U/L (17-59); Bilirubin,Total 2.1 mg/dL (0.2-1.3); Blood Urea Nitrogen 19 mg/dL (9-20); Calcium 8.9 mg/dL (8.4-10.2); Carbon Dioxide 25 mmol/L (22-30); Chloride 105 mmol/L (98-107); Estimated Glomerular Filt Rate > 60; Glucose 91 mg/dL (65-110); Potassium 3.9 mmol/L (3.4-5.0); Sodium 142 mmol/L (137-145)
[2024-04-06 18:37] LABS: NT Pro B Type Natriuretic Pept 195 pg/mL (19.9-100)
== END 2024-04-06 21:50 | disposition home or self-care (01) ==
PROVIDERS: Physician Assistant; Emergency Provider Emergency Medicine; PCP Family Medicine
DX: R60.0 Localized edema (principal); E78.5 Hyperlipidemia, unspecified; Z87.820 Personal history of traumatic brain injury
CPT/HCPCS: 36415; 73630; 80053; 83880; 85025; 85610; 85730; 93970; 99284

== ENCOUNTER 2024-05-22 13:06 | Outpatient (CLI) | payer OTHER, SELFPAY ==
--- NOTE | ~2024-05-22 | XR_ITS ---
AP view of the pelvis and AP and lateral views of the left hip Clinical history: Pain Findings: No acute fracture or dislocation is seen. Osseous alignment is anatomic. Left hip arthropla sty and plate. Prior ORIF of the proximal right femur.. Soft tissues are unremarkable. Impression: No acute abnormality. Orthopedic hardware in place, as above. Reviewed, dictated and finalized at location . Impression: No acute abnormality. Orthopedic hardware in place, as above.
--- OUTSIDE RECORDS SUMMARY | 2024-05-22 14:36 | XMS_ITS | Continuity of Care Document ---
Author Organization [place] - [facility], [facility] Address [address] [place] [address] Care Team Providers Care Emissions Testing Technician Name Role Phone PIERRE CALVO Primary Care Provider PIERRE CALVO Referring Provider PIERRE CALVO Primary Care Provider Assessment No assessment recorded. Plan of Treatment Reminders Order Date Submit Date Provider Last Modified By Organization Details Last Modified Time Details Appointments Any 15 2024 11:15A M Pierre Calvo MD Not available Not available Not available Procedure 15 2024 11:00A M Imtiaz tyler MD Not available Not available Not available Any 30 2024 02:30P M Pierre Calvo MD Not available Not available Not available Establish ed Patient 15 2024 02:30P M Horace Loo DPM Not available Not available Not available Lab None recorded. Referral None recorded. Procedures None recorded. Surgeries None recorded. Imaging XR, hip + pelvis, unilatera l, 2 or 3 view - S/p fall 1 week ago 2024 025 [facility], [address], [place], [address], 05/22/2024 15:07:42 Medication Orders tramadol 50 mg tablet 2024 025 [id number], [address] [facility], [place], [place], [id number], 05/22/2024 12:37:10 diclofena c sodium 75 mg tablet,de layed release 2024 025 [id number], [address] [facility], [place], [place], [id number], 05/22/2024 12:37:08 Patient TargetsNo targets recorded. Patient InstructionsNo instructions recorded. Reason for Referral None Reported. Results Created Date Observation Date Name Description Value Unit Range Abnormal Flag Note LastModifiedBy Organization Detail LastModifiedTime 05/23/19 25 05/22/2024 XR, hip + pelvi s, unila teral , 2 or 3 view No observ ation record ed. [address], [place], [address], 05/22/2024 15:07:42 05/23/19 25 05/22/2024 XR, hip + pelvi s, unila teral , 2 or 3 view No observ ation record ed. [address], [place], [address], 05/22/2024 15:25:40 Result Notes None recorded. Problems Name Problem SNOMED Code Status Onset Date Resolution Date Notes Provider Name and Address Organization Details Recorded Time Irritable bowel syndrome 02563261 Active 2020 Not Available [facility] 3 19:48:48 Impacted cerumen of bilateral ears 17021808297 03150 Active 2019 Not Available [facility] 3 19:48:48 Hyperbili rubinemia 52531337 Active 2019 Not Available [facility] 3 19:48:48 Muscle weakness 41153439 Active 2019 Not Available [facility] 3 19:48:48 Gastroeso phageal reflux disease without esophagit is 056830761 Active 2020 Not Available [facility] 3 19:48:48 Pain of left hip joint 34089909918 9100 Active 2021 Not Available [facility] 3 19:48:48 Vitamin D deficienc y 55655159 Active 2020 Not Available [facility] 3 19:48:48 Depressiv e disorder 40665792 Active 2019 Not Available [facility] 3 19:48:48 Traumatic injury 080979038 Completed 201705/07/2019 Not Available [facility] 3 19:48:48 Spasm 81720983 Active 2019 Not Available [facility] 3 19:48:48 Hyperlipi demia 91399523 Active 2019 Not Available [facility] 3 19:48:48 Liver enzymes level above reference range 341588223 Active 2019 Not Available [facility] 3 19:48:49 Chronic idiopathi c constipat ion 31973691 Active 2020 Not Available [facility] 3 19:48:49 Impaired mobility 35396042 Active 2020 Not Available [facility] 3 19:48:49 Ex-smoker 5697335 Active 2019 Not Available [facility] 3 19:48:49 Altered bowel function 23911609 Active 2020 Not Available [facility] 3 19:48:49 History of traumatic brain injury 23183051677 100 Active 2019 Not Available [facility] 3 19:48:49 Onychomyc osis of toenails 365152864 Active 2022 Pierre Calvo MD [address], [place], [address] , [employer] 3 14:43:11 Left foot drop 50167717897 9105 Active 2022 Horace Loo DPM [address], [place], [address] , [employer] 3 15:48:09 Dystrophi a unguium 91105323 Active 2022 Horace Loo DPM [address], [place], [address] , [employer] 3 15:48:15 Severe dry skin 832664096 Active 2022 Horace Loo DPM [address], [place], [address] , [facility] [employer] [facility] 3 15:48:28 Unable to cut own toenails 664840826 Active 2022 Horace Loo DPM [address], [place], [address] , [facility] [employer] [facility] 3 15:49:18 Venous stasis edema of bilateral lower limbs 21872336898 284252 Active 2024 Pierre Calvo MD [address], [place], [address] , [facility] [employer] [facility] 5 15:52:55 Infection of sebaceous cyst 112321274 Active 2024 JOCE Kowalski [address], [address] [facility], [place], [address] , [facility] [employer] [facility] 5 15:57:43 Celluliti s of left upper limb 44535560206 866499 Active 2024 Pierre Calvo MD [address], [place] [address], [place], [address] , [facility] [employer] [facility] 5 14:19:31 Epidermoi d cyst of skin 801691699 Active 2024 Imtiaz sotomayor MD [address], [place], [address] , [facility] [employer] [facility] 5 14:37:52 Notes:injury to the brain, l eft shoulder and left leg Problem Notes None recorded. Procedures Surgical History Date Name Laterality Status Provider Name and Address Organization Details Recorded Time 04/19/19 Nail Debridement completed Horace Loo DPM [address], [place], [address], [facility] [employer] [facility] 04/19/2024 18:10:19 02/06/20 25 I&D completed JOCE Kowalski [address] [facility], [place], [address], [facility] [employer] [facility] 04/12/2024 17:02:31 04/10/19 25 Transitional_Ca re_Management completed Zari Ghosh RN [facility] [employer] [facility] 04/10/2024 15:38:30 03/10/19 24 Ear Irrigation completed Pierre Calvo MD [address], [place], [address], [facility] [employer] [facility] 03/10/2023 16:18:27 11/30/19 23 Nail Debridement completed Horace Loo DPM [address], [place], [address], [facility] [employer] [facility] 11/29/2022 15:48:01 Shoulder joint surgery completed Not Available [facility] 05/05/2022 19:48:20 Hip surgery completed Not Available [facility] 05/05/2022 19:48:20 Imaging Results None recorded. Procedure [...] Not Available atorvastati n 20 mg tablet Take 1 tablet every day by oral route at bedtime for 90 days. 2024 active Not Available Not Available Not [...] completed Not Available Not Available Not Available aspirin 81 mg tablet,sharonda yed release TAKE 1 TABLET BY MOUTH DAILY WITH A MEAL active Not Available Not Available No t Available tramadol 50 mg tablet Take 1 tablet every 8 hours by oral route as needed for 5 days. 2024 active Not Available Not Available Not Avai lable famotidine 20 mg tablet TAKE 1 TABLET BY MOUTH TWICE DAILY DIRECTED active Not Available Not Available No t Available cephalexin 500 mg capsule TAKE 1 CAPSULE BY MOUTH EVERY 6 HOURS FOR 10 DAYS active Not Available Not Available No t Available diclofenac sodium 75 mg tablet,sharonda yed release Take 1 tablet every 12 hours by oral route as needed for 15 days. 2024 active Not Available Not Available Not Avai lable furosemide 20 mg tablet TAKE 1/2 TABLET BY MOUTH EVERY DAY IN THE [...] Not Available Not Available No t Available escitalopra m 10 mg tablet TAKE 1 [...] completed Not Available Not Available Not Available baclofen 5 mg tablet TAKE 1 TABLET BY MOUTH TWICE DAILY NEEDED. MAY CAUSE DROWSINES S. active Not Available Not Available No t Available Vitals Date Recorded Body height Body temperature Oxygen saturation Oxygen saturation in Arterial blood by Pulse oximetry Heart rate Systolic blood pressure Diastolic blood pressure Provider Name and Address Organization Details Last Updated DateTime 5 182.88 cm 97.3 [degF] 93 % 93 % 75 /min 110 mm[Hg] 70 mm[Hg] Zari Ghosh RN [place] - [facility] 5 12:29:52 Social History Question Answer Notes LastModified by Organizat ion Details LastModified Time Tobacco Smoking Status Former Smoker Not Available [facility] 05/05/2022 19:48:19 Do You Have An Advance Directive? No [id number] Information not available 05/05/2022 What Is Your Level Of Alcohol Consumption? None MIGRATION.171073 2358 Information not available 05/05/2022 Are You Blind Or Do You Have Difficulty Seeing? No MIGRATION.982405 8979 Information not available 05/05/2022 What Is Your Level Of Caffeine Consumption? Occasional Information not available 11/29/2022 What Is Your Code Status? Full Code [id number] Information not available 05/05/2022 In The 14 Days Before Symptom Onset, Have You Had Close Contact With A Laboratory-confir med COVID-19 While That Case Was Ill? No MIGRATION.[id number] 6354 Information not available 05/05/2022 In The 14 Days Before Symptom Onset, Have You Had Close Contact With A Person Who Is Under Investigation For COVID-19 While That Person Was Ill? No MIGRATION.174262 6518 Information not available 05/05/2022 Are You Deaf Or Do You Have Serious Difficulty Hearing? No MIGRATION.445814 1109 Information not available 05/05/2022 What Type Of Diet Are You Following? REGULAR MIGRATION.450321 5444 Information not available 05/05/2022 Do You Have A Medical Power Of Company Pilot? No MIGRATION.402031 9974 Information not available 05/05/2022 What Was The Date Of Your Most Recent Tobacco Screening? 11/29/2022 Information not available 11/29/2022 Do You Use Your Seat Belt Or Car Seat Routinely? Yes Information not available 04/12/2024 Do You Participate In Social Media? No Information not available 04/12/2024 Do You Use Any Illicit Or Recreational Drugs? No Information not available 11/29/2022 Has Tobacco Cessation Counseling Been Provided? No Information not available 11/29/2022 Have You Recently Traveled Abroad? No MIGRATION.159088 2964 Information not available 05/05/2022 Do You Have Any Dietary Restrictions? No MIGRATION.740009 7415 Information not available 05/05/2022 Do You Or Have You Ever Used Any Other Forms Of Tobacco Or Nicotine? No Information not available 11/29/2022 Sex: Male Functional Status Question Answer Note LastModified by Organizat [employer] Details LastModified Time Do you have difficulty walking or climbing stairs? Yes MIGRATION.59750 [id number] Information not available 05/05/2022 Do you have transportation difficulties? Yes hasn't driven in 2 years MIGRATION.12294 31632 Information not available 05/05/2022 Are you able to walk? YESASSIST wheelchair and walker MIGRATION.42866 27071 Information not available 05/05/2022 Do you have difficulty doing errands alone? Yes MIGRATION.89601 63071 Information not available 05/05/2022 Are you able to care for yourself? Yes MIGRATION.68321 40972 Information not available 05/05/2022 Do you have difficulty dressing or bathing? No MIGRATION.91849 16836 Information not available 05/05/2022 What is your exercise level? None MIGRATION.46455 68915 Information not available 05/05/2022 Mental Status Question Answer Note LastModified by Organizat ion Details LastModified Time Do you have difficulty concentrating, remembering or making decisions? Yes [id number] 6 Information not available 05/05/2022 Family History Relationship Description Onset Age of this Age Resolved Age Notes LastModified by Organization Details LastModified Time Father No current problems or disability [id number] Not available 05/05/2022 19:48:21 Mother No current problems or disability MIGRATION.896 [id number] Not available 05/05/2022 19:48:21 Father Hypertensive disorder [...] virus, quadrivalent, PF 12/13/2022 completed CAROL Almendarez - [facility] 12/14/2022 10:05:54 Past Encounters Encounter ID Performer Location Encounter Start Date Encounter Closed Date Diagnosis/Indication Diagnosis SNOMED-CT Code Diagnosis ICD10 Code Diagnosis Note [id number] Imtiaz sotomayor MD [facility] General Surgery [address] [facility], [facility] [address] [place] [address] 04/26/2024 11:53:10 04/26/2024 12:25:36 Epidermoid cyst of skin 083064565 L72.0 Left forearm [id number] Pierre Calvo MD [facility] [address] [place] [address] 05/22/2024 12:14:04 05/22/2024 14:10:35 Fall 9618714 W19.XXXA Pain of le ft hip joint 9863286769 98763 M25.552 Impaired mobility 968539 05 Z74.09 Muscle weakness 40807671 M62.81 History of traumatic brain injury 4317091092 9100 Z87.820 Health Concerns Section Related Observation LastModified by Organization Detai ls LastModified Time None Recorded Concern Status LastModified by Organization Details LastModified Time None Recorded Payers Encounter Date Sequence Insurance Name Policy Number Policy Pierre Covered Member ID Pierre Member ID Guarantor Name 05/22/2024 1 [facility] (MEDICAID HMO) [id number] David Lynch Bowen [id number] David Lynch Bowen Notes Date Note Type Note Provider Name and Address Organization Details Recorded Time 05/22/2024 text/html ACV:Here with his brother. S/p fall at his home 1 week ago and hurt his Lt hip area. No head trauma/LOC. No other area pain. Pt has not taken any OTC pain med for this yet. Pt has h/o Lt hip fracture and got Angel THR done 11 yrs ago. Pierre Calvo MD [address] [place] [address], [place], [address], [place] [facility] [employer] 05/22/2024 12:45:17
--- OUTSIDE RECORDS SUMMARY | 2024-05-22 14:36 | XMS_ITS | Encounter Summary ---
Author Organization [facility] Address [address] [place] [address] Care Team Providers Care Tax Record Clerk Name Role Phone Pierre Calvo Primary Care Provider [facility] Alcides Berry MD Primary Care Provider Pierre Calvo MD Primary Care Provider [phone] Reason for Visit * Reason Onset Date Comments Future Appointment 01/18/2022 Encounter Details Date Type Department Care Team (Late st Contact Info) Description 01/18/2022 Telephone [facility] [address] [place] [address] Sarah Smith MD Future Appointment Social History Tobacco Use Types [...] Elizabeth Lechuga, RN - 02/17/2022 11:39 AM BOILER TUBE BLOWER Received call from Rossy at [facility] requesting Referral for PT be faxed to [phone]. Order faxed with face sheet as requested. ER TUBE BLOWER * Telephone Encounter - Jessenia Montero - 01/18/2022 12:42 PM CST Mr Bowen called to reschedule his appt that was cancelled for today. Please contact David at [phone] to reschedule his Botox appointment. Thanks ER TUBE BLOWER documented in this encounter Plan of Treatment Upcoming Encounters Date Type Department Care Team (Late st Contact Info) Description 06/05/2024 3:00 PM CDT Procedure visit [facility] - Neurology [address] [place] [address], [place] [address] Scooter George MD [address] [place] [address] [address] [place] [address] 06/15/2024 3:00 PM CDT Office Visit [facility] - GI [address] [place] [address], [place] [address] Lisa Huang, SECURITY AND COMPLIANCE PROJECT MANAGER-VALIDATION SCIENTIST [address] [place] [address] [address] [place] [address] documented as of this encounter Goals Goal Patient Goal Type Associated Problems Recent Progress Patient-Stated? Author Medication Management General On track( 024 4:13 PM CDT) Kelly Driscoll, RN Note: Expected end date: ongoing Interventions: Take all medications as prescribed documented as of this encounter Visit Diagnoses Not on filedocumented in this encounter Care Teams Tax Record Clerk Relationship Specialty Start Date End Date Pierre Calvo Update Information PCP - General 09/22/19 12/01/22 Alcides Schultz MD [address] [place] [address] PCP - General Internal Medicine 12/02/22 01/06/23 Pierre Calvo MD [address] [place] [address] PCP - General Family Medicine 01/07/23 documented as of this encounter
--- OUTSIDE RECORDS SUMMARY | 2024-05-22 14:36 | XMS_ITS | Clinical Summary ---
Author Organization [facility] Address [address] [place] [address] Care Team Providers Care Shipping Services Sales Representative Name Role Phone Pierre Calvo MD Primary Care Provider [phone] Source Comments [facility],non-owned Affiliates and Associated Physician Practices is amultiple site organization consisting of ambulatory clinics and hospital sitesin [place], [place], [place]. This disclosure is being madepursuant to the Care Everywhere program and may not contain all information available regarding this patient. Last updated 17.[facility] Allergies No known active allergies Medications * [...] as needed Active ergocalciferol (Drisdol) 1.25 MG (09960 UT) capsule ergocalciferol (vitamin D2) 1,250 mcg [...] Department Care Team Description 02/27/2024 11:19 AM CHAIR MECHANIC - 02/27/2024 11:59 PM CHAIR MECHANIC Hospital Encounter [facility] OP DRAW STATION [address] [place] [phone] Discharge Disposition: Home or Self Care 02/27/2024 Travel from Last 3 Months Immunizations Name Administration Dates Next Due [employer] BIVALENT 12Y+ 30mcg/0.3ML 2 HEP A VACCINE, [...] 73 09/13/2023 11:31 AM CDT Temperature 36.5 C (97.7 F) 06/17/2023 3:34 PM CDT Respiratory Rate 20 09/24/2019 12:10 PM CDT [...] Description 06/05/2024 3:00 PM CDT Procedure visit [facility] - Neurology [address] [place] [address], [place] [phone] Scooter George MD [address] [place] [address] [address] [place] [phone] 06/15/2024 3:00 PM CDT Office Visit [facility] - GI [address] [place] [address], [place] [address] Lisa Huang, EUCLID OPERATOR-VOLUNTEER PATIENT REPRESENTATIVE [address] [place] [address] [address] [place] [phone] Health Maintenance Due Date Last Done Comments [...] complete this topic MENINGOCOCCAL (Group B) VACCINE SHARED DECISION-MAKING Aged Out No longer eligible based on patient's age to complete this topic MENINGOCOCCAL GROUPS A/C/Y/W VACCINE Aged Out No longer eligible based on patient's age to complete this topic Goals Goal Patient Goal Type Associated Problems Recent Progress Patient-Stated? Author Medication Management General On track( 024 4:13 PM CDT) Kelly Driscoll, RN Note: Expected end date: ongoing Interventions: Take all medications as prescribed Procedures Procedure Name Priority Date/Time Associated Diagnosis Comments COMPREHENSIVE METABOLIC PANEL Routine 02/27/2024 12:18 PM CHAIR MECHANIC Hyperbilirubinemia CBC W AUTO DIFFERENTIAL Routine 02/27/2024 12:18 PM CHAIR MECHANIC Hyperbilirubinemia HEPATITIS C RNA QUANTITATIVE Routine 11/02/2018 3:45 PM CDT Elevated liver enzymes from Last 3 Months or Most Recently Relevant to Health Maintenance Results * (ABNORMAL) CBC WITH DIFFERENTIAL (02/27/2024 12:18 PM CHAIR MECHANIC) Pathologist [facility] WBC 6.9 4.0 - 10.7 x10E9/L 02/27/2024 1:28 PM CHAIR MECHANIC [facility] RBC Count 4.85 4.30 - 5.80 x10E12/L 02/27/2024 1:28 PM CHAIR MECHANIC [facility] Hemoglobin 14.6 13.3 - 17.5 g/dL 02/27/2024 1:28 PM [facility] Hematocrit 43.0 38.7 - 51.1 % 02/27/2024 1:28 PM [facility] MCV 88.7 80.0 - 98.0 fL 02/27/2024 1:28 PM [facility] MCH 30.1 26.7 - 33.6 pg 02/27/2024 1:28 PM [facility] MCHC 34.0 31.7 - 36.3 g/dL 02/27/2024 1:28 PM [facility] RDW-CV 12.4 11.3 - 14.8 % 02/27/2024 1:28 PM [facility] Platelet Count 226 150 - 420 x10E9/L 02/27/2024 1:28 PM [facility] MPV 12.1(H) 7.8 - 11.4 fL 02/27/2024 1:28 PM [facility] Neutrophil % 68.4 41.0 - 74.0 % 02/27/2024 1:28 PM [facility] Lymphocyte % 20.4 17.0 - 47.0 % 02/27/2024 1:28 PM [facility] Monocyte % 6.5 3.0 - 11.0 % 02/27/2024 1:28 PM [facility] Eosinophil % 4.2 0.0 - 7.0 % 02/27/2024 1:28 PM [facility] Basophil % 0.4 0.0 - 1.6 % 02/27/2024 1:28 PM [facility] Immature Granulocytes % 0.1 0.0 - 1.0 % 02/27/2024 1:28 PM [facility] Neutrophil Absolute 4.72 1.60 - 7.50 x10E9/L 02/27/2024 1:28 PM [facility] Lymphocyte Absolute 1.41 1.00 - 4.40 x10E9/L 02/27/2024 1:28 PM [facility] Monocyte Absolute 0.45 0.15 - 1.00 x10E9/L 02/27/2024 1:28 PM [facility] Eosinophil Absolute 0.29 0.00 - 0.60 x10E9/L 02/27/2024 1:28 PM [facility] Basophil Absolute 0.03 0.00 - 0.13 x10E9/L 02/27/2024 1:28 PM [facility] Blood BLOOD SPECIMEN / Unknown Lab Venipuncture / Unknown 02/27/2024 12:18 PM CHAIR MECHANIC 02/27/2024 1:02 PM [facility] Lisa Huang EUCLID OPERATOR-VOLUNTEER PATIENT REPRESENTATIVE LAB - HEMATO LOGY ORDERABLES [facility] [address] [place] [address], [facility] [phone] * (ABNORMAL) COMPREHENSIVE METABOLIC PANEL (02/27/2024 12:18 PM [facility]) BUN 14 7 - 26 mg/dL 02/27/2024 2:02 PM [facility] Creatinine 1.11 0.71 - 1.16 mg/dL 02/27/2024 2:02 PM [facility] Sodium 140 136 - 145 mmol/L 02/27/2024 2:02 PM [facility] Potassium 4.1 3.5 - 4.5 mmol/L 02/27/2024 2:02 PM [facility] Chloride 106 98 - 107 mmol/L 02/27/2024 2:02 PM [facility] CO2 26 22 - 29 mmol/L 02/27/2024 2:02 PM [facility] Glucose 97 70 - 99 mg/dL 02/27/2024 2:02 PM [facility] Calcium 8.9 8.4 - 10.2 mg/dL 02/27/2024 2:02 PM [facility] Protein Total 7.3 6.0 - 8.3 g/dL 02/27/2024 2:02 PM [facility] Albumin 4.0 3.4 - 5.0 g/dL 02/27/2024 2:02 PM [facility] Bilirubin Total 1.3(H) 0.2 - 1.2 mg/dL 02/27/2024 2:02 PM [facility] Alkaline Phosphatase 148 40 - 150 U/L 02/27/2024 2:02 PM [facility] ALT 49 5 - 55 U/L 02/27/2024 2:02 PM [facility] AST 33 5 - 34 U/L 02/27/2024 2:02 PM [facility] Anion Gap 8 6 - 16 02/27/2024 2:02 PM [facility] BUN/Creatinine Ratio 13 7 - 23 02/27/2024 2:02 PM [facility] Osmolality Calculated 290 275 - 295 mOsm/kg 02/27/2024 2:02 PM [facility] Albumin/Globulin Ratio 1.2 1.1 - 2.3 02/27/2024 2:02 PM [facility] eGFR by CKD-EPI 75(L) >=90 mL/min/1.7 3 m2 02/27/2024 2:02 PM [facility] Blood BLOOD SPECIMEN / Unknown Lab Venipuncture / Unknown 02/27/2024 12:18 PM CHAIR MECHANIC 02/27/2024 1:04 PM [facility] Lisa Huang EUCLID OPERATOR-VOLUNTEER PATIENT REPRESENTATIVE LAB - CHEMIS TRY ORDERABLES [facility] [address] [place] [phone], [facility] [phone] * HEPATITIS C RNA QUANTITATIVE (11/02/2018 3:45 PM CDT) Hepatitis C RNA PCR, Interp Not Detected Not Detected 11/07/2018 8:35 PM CDT [facility] Blood BLOOD SPECIMEN / Unknown Lab Venipuncture / Unknown 11/02/2018 3:45 PM CDT 11/02/2018 4:04 PM CDT Narrative [facility] - 11/07/2018 8:35 PM CDT The Hepatitis C viral (HCV) RNA analysis utilized a serum sample, real-time reverse cylinder honer PCR, and is reported as Not Detected, Detected (<12 IU/mL), Quantity (IU/mL) or >100,000,000 IU/mL. The limit of quantitation of the assay is 12 IU/mL (100% of samples with this HCV RNA level were detected). The linear range is from 12 IU/mL to 100,000,000 IU/mL. Values less than 12 IU/mL are reported as Detected (<12 IU/mL). Values greater than 100,000,000 IU/mL are reported as > 100,000,000 IU/mL. The detection/quantitation of HCV RNA in serum is based on the isolation of HCV RNA with reverse cylinder honer of genomic HCV RNA followed by real-time PCR in the presence of an unrelated RNA internal control. The internal control ensures that RNA is isolated, and that no general significant inhibitors of the RT-PCR process are present. The analysis was performed using a U.S. FDA approved test methodology (Guardly Real Time HCV). Lisa Huang APRN-VOLUNTEER PATIENT REPRESENTATIVE LAB - CHEMIS TRY ORDERABLES [facility] [address] [phone] from Last 3 Months or Most Recently Relevant to Health Maintenance Care Teams Shipping Services Sales Representative Relationship Specialty Start Date End Date Pierre Calvo MD [address] [place] [phone] PCP - General Family Medicine 01/07/23
--- OUTSIDE RECORDS SUMMARY | 2024-05-22 14:36 | XMS_ITS | Clinical Summary ---
Author Organization [facility] Address [address] [place] [id number] Care Team Providers Care Portable Irrigation Operator Name Role Phone Unavailable Primary Care Provider [...]
--- OUTSIDE RECORDS SUMMARY | 2024-05-22 14:36 | XMS_ITS | Clinical Summary ---
Author Organization [facility] Address [address] [place] [address] Phone Care Team Providers Care Slip Dumper Name Role Phone Jorge Poole MD Primary Care Provider [phone] Allergies No known active allergies Medications polyethylene glycol (MIRALAX) Powder Use entire 255g bottle with 64oz of clear liquid as directed for colonoscopy prep. 255 g 0 7 Active Additional Information Patient not taking.Reported on 09/04/2018 rosuvastatin (CRESTOR) 40 MG Tablet Take 40 mg by mouth daily. Active ergocalciferol (VITAMIN D) 79558 UNIT Capsule Take 50,000 Units by mouth. [...] 67 09/04/2018 9:21 AM CDT Temperature 36.4 C (97.6 F) 09/04/2018 9:21 AM CDT Respiratory Rate 16 09/04/2018 9:21 AM CDT [...] Procedure Name Priority Date/Time Associated Diagnosis Comments COLONOSCOPY Routine 09/09/2016 from Last 3 Months or Most Recently Relevant to Health Maintenance Results * COLONOSCOPY (09/09/2016) Jorge Poole MD PROCEDURE/MINOR SURGICAL ORDDorothy RIANNAJUAN A Final Result from Last 3 Months or Most Recently Relevant to Health Maintenance Insurance [employer] Care Teams Slip Dumper Relationship Specialty Start Date End Date Jorge Poole MD [address] [place] [id number] PCP - General Family Medicine 05/03/16
--- OUTSIDE RECORDS SUMMARY | 2024-05-22 14:36 | XMS_ITS | Encounter Summary ---
Author Organization [facility] Address [address] [place] [address] Care Team Providers Care Wheel Installer Name Role Phone Alcides Schultz MD Primary Care Provider Pierre Calvo MD Primary Care Provider [phone] Reason for Visit * Reason Onset Date Comments Reschedule Appointment 12/27/2022 Encounter Details Date Type Department Care Team ([facility] Contact Info) Description 12/27/2022 Telephone [facility] - Centralized Scheduling [address] [place] [phone] Sarah Smith MD Reschedule Appointment Social History Tobacco Use Types [...] Upcoming Encounters Date Type Department Care Team ([facility] Contact Info) Description 06/05/2024 3:00 PM CDT Procedure visit [facility] - Neurology [address] [place] [phone] Scooter George MD [address] [facility] [address] [place] [phone] 06/15/2024 3:00 PM CDT Office Visit [facility] - GI [address] [facility], [place] [address] Lisa Huang, BLAST FURNACE TENDER-SENIOR WEB ENGINEER [address] [place] [address] [address] [place] [phone] documented as of this encounter Goals Goal Patient Goal Type Associated Problems Recent Progress Patient-Stated? Author Medication Management General On track( 024 4:13 PM CDT) Kelly Driscoll, RN Note: Expected end date: ongoing Interventions: Take all medications as prescribed documented as of this encounter Visit Diagnoses Not on filedocumented in this encounter Care Teams Wheel Installer Relationship Specialty Start Date End Date Alcides Schultz MD [address] [place] [phone] PCP - General Internal Medicine 12/02/22 01/06/23 Pierre Calvo MD [address] [place] [phone] PCP - General Family Medicine 01/07/23 documented as of this encounter
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
--- OUTSIDE RECORDS SUMMARY | 2024-05-22 14:36 | XMS_ITS | Referral Summary ---
Author Organization [facility] Address [address] [place] [phone] Care Team Providers Care Claim Manager Name Role Phone Bruno Kowalski OD Unavailable [phone] Sarah Smith MD Unavailable [phone] Pierre Calvo MD Primary Care Provider [phone] Encounters Date Type Department Care Team Description 05/14/2024 Telephone [facility] Ophthalmology [address] [place] [phone] Minnie Hays MD 05/10/2024 Results Follow-Up [facility] Ophthalmology [address] [place] [phone] Minnie Hays MD 05/10/2024 12:34 PM TRACTOR TRAILER TECHNICIAN - 05/10/2024 11:59 PM TRACTOR TRAILER TECHNICIAN Hospital Encounter [address] [address] Discharge Disposition: Discharge to home or self care 02/27/2024 10:10 AM TRACTOR TRAILER TECHNICIAN Imaging Exam [facility] Ophthalmology [address] [place] [phone] 02/27/2024 8:00 AM TRACTOR TRAILER TECHNICIAN Office Visit [facility] Ophthalmology [address] [place] [phone] Minnie Hays MD Right homonymous superior quadrantanopia (Primary Dx) 02/27/2024 9:00 AM TRACTOR TRAILER TECHNICIAN Imaging Exam [facility] Ophthalmology [address] [facility] [address] [place] [phone] 02/27/2024 8:50 AM TRACTOR TRAILER TECHNICIAN Imaging Exam [facility]hthalmology [facility] [address] [phone] from Last 3 Months Allergies No known active allergies Medications buPROPion [...] of head trauma, cognitive deficits 0 08/11/2011 Social History Tobacco Use Types Packs/Day Years Used Date Smoking Tobacco: Former Smokeless Tobacco: Former Sex and Gender Information Value Date Recorded Sex Assigned at Not on file Legal Sex Male 1:10 AM TRACTOR TRAILER TECHNICIAN Gender Identity Not on file Sexual Orientation Not on file Last Filed Vital Signs Vital Sign Reading Time Taken Comments Blood Pressure 104/70 02/22/2018 2:39 PM TRACTOR TRAILER TECHNICIAN Pulse 99 02/22/2018 2:39 PM TRACTOR TRAILER TECHNICIAN Temperature - - Respiratory Rate - - Oxygen Saturation 98% 05/12/2016 3:21 PM TRACTOR TRAILER TECHNICIAN Inhaled Oxygen Concentration - - Weight 67.1 kg (148 lb) 02/22/2018 2:39 PM TRACTOR TRAILER TECHNICIAN Height 182.9 cm (6') 02/22/2018 2:39 PM TRACTOR TRAILER TECHNICIAN Body Mass Index 20.07 02/22/2018 2:39 PM TRACTOR TRAILER TECHNICIAN Plan of Treatment Not on file Procedures Procedure Name Priority Date/Time Associated Diagnosis Comments MRI BRAIN INCL ORBITS W WO CONTRAST Schedule Routine, Read Routine (OP Routine) 05/10/2024 1:54 PM TRACTOR TRAILER TECHNICIAN Right homonymous superior quadrantanopia LLAMAS VISUAL FIELD - OU - BOTH EYES Routine 02/27/2024 10:06 AM TRACTOR TRAILER TECHNICIAN Right homonymous superior quadrantanopia 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 GOLDMANN VISUAL FIELD - OU - BOTH EYES Routine 02/27/2024 9:56 AM TRACTOR TRAILER TECHNICIAN Right homonymous superior quadrantanopia OCT, RETINA - OU - BOTH EYES Routine 02/27/2024 9:56 AM TRACTOR TRAILER TECHNICIAN Right homonymous superior quadrantanopia OCT, OPTIC NERVE - OU - BOTH EYES Routine 02/27/2024 9:56 AM TRACTOR TRAILER TECHNICIAN Right homonymous superior quadrantanopia from Last 3 Months Results * MRI Brain Incl Orbits W WO Contrast (05/10/2024 1:54 PM TRACTOR TRAILER TECHNICIAN) Anatomical Region Laterality Modality Head and Neck N/A Magnetic Resonan ce 05/10/2024 2:32 PM TRACTOR TRAILER TECHNICIAN Narrative 05/10/2024 3:03 PM TRACTOR TRAILER TECHNICIAN EXAM DESCRIPTION: MRI BRAIN INCL ORBITS W [...] Electronically signed by Kirt Calvo D.O. AP: LUPE Report ID: [id number] Reading Location: [place] [address] Procedure Note Kirt Calvo, DO - 05/10/2024 [...] in the bilateral ethmoid air cells. Trace [id number] signal in the left mastoid air cells. IMPRESSION: 1. Multifocal left cerebral hemisphere encephalomalacia with old blood degradation products to include large portions of the left temporal lobe. 2. No acute infarction. 3. Postoperative changes, chronic microvascular ischemic typewhite-matter changes and additional findings as above. THIS IS AN ELECTRONICALLY VERIFIED FINAL REPORT 05/10/2024 3:03 PM - Electronically signed by Kirt Calvo D.O. AP: LUPE Report ID: [id number] Reading Location: [id number] us Minnie Hays MD IMG MRI PROCEDURES Final Re sult * Llamas Visual Field - OU - Both Eyes (02/27/2024 10:06 AM TRACTOR TRAILER TECHNICIAN) Anatomical Region Laterality Modality Head Other Narrative 02/27/2024 10:10 AM TRACTOR TRAILER TECHNICIAN Right Eye Fixation was good. Cooperation was good. Reliability was good. Left Eye Fixation was good. Cooperation was good. Reliability was good. Notes Right superior quadrantanopia, homonymous, OS>OD Scattered additional misses with poor fixation, / FL OD, 7/12 OS us Minnie Hays MD OPH VISUAL FIELD Edited R esult - Final * Junior Architect License Goldmann Visual Field - OU - Both Eyes (02/27/2024 9:56 AM TRACTOR TRAILER TECHNICIAN) Anatomical Region Laterality Modality Head Visual Field Narrative 02/27/2024 10:10 AM TRACTOR TRAILER TECHNICIAN Superotemporal homonymous losses, but with >140 contiguous horizontal degrees intact to v4e isopter and >55 degrees temporally OU intact to v4e isopter us Corrie Sotelo MD OPH VISUAL FIELD Final Re sult * OCT, Retina - OU - Both Eyes (02/27/2024 9:56 AM TRACTOR TRAILER TECHNICIAN) Anatomical Region Laterality Modality Head Other Narrative 02/27/2024 10:11 AM TRACTOR TRAILER TECHNICIAN Right Eye Findings include normal observations. Left Eye Findings include normal observations. Notes mean GCC thickness: 70 microns OD, 68 microns OS (on Zeiss Cirrus OCT) us Minnie Hays MD OPHTH TOMOGRAPHY Final Resu lt * OCT, Optic Nerve - OU - Both Eyes (02/27/2024 9:56 AM TRACTOR TRAILER TECHNICIAN) RNFL OS 66 micrometers CONTINUUM RNFL OD 81 micrometers CONTINUUM Anatomical Region Laterality Modality Head Other Narrative 02/27/2024 10:11 AM TRACTOR TRAILER TECHNICIAN Right Eye Reliability was good. Average RNFL thickness 81 micrometers. Left Eye Reliability was good. Average RNFL thickness 66 micrometers. Notes RNFL thinning OS (Performed on Zeiss Cirrus OCT) Minnie Hays MD OPHTH TOMOGRAPHY Final Resu lt from Last 3 Months Insurance [facility] Care Teams Claim Manager Relationship Specialty Start Date End Date Pierre Calvo MD [address] [address] PCP - General Family Medicine 02/27/24 [place] [address] [place], [place] [id number] Referring Physician Optometry 02/27/24 [place] [address] [place], [place] [id number] Neurologist Neurology 02/27/24
--- OUTSIDE RECORDS SUMMARY | 2024-05-22 14:36 | XMS_ITS | Encounter Summary ---
Author Organization [facility] Address [address] [place] [address] Care Team Providers Care Retail Assistant Manager Name Role Phone Pierre Calvo Primary Care Provider [facility] Alcides Berry MD Primary Care Provider Pierre Calvo MD Primary Care Provider [phone] Reason for Visit * Reason Onset Date Comments Appointment 11/05/2021 Encounter Details Date Type Department Care Team (Late st Contact Info) Description 11/05/2021 Telephone [facility] [address] [place] [address] Pierre Calvo Update Information Appointment Social History [...] BRANDIE was 01/23/2019 Patient Call Back number: [phone] documented in this encounter Plan of Treatment Upcoming Encounters Date Type Department Care Team (Late st Contact Info) Description 06/05/2024 3:00 PM CDT Procedure visit [facility] - Neurology [address] [place] [address], [place] [phone] Scooter George MD [address] [place] [address] [address] [place] [address] 06/15/2024 3:00 PM CDT Office Visit [facility] - GI [address] [place] [address], [place] [address] Lisa Huang, BED MANAGER-MANAGER FILE [address] [place] [address] [address] [place] [address] documented as of this encounter Goals Goal Patient Goal Type Associated Problems Recent Progress Patient-Stated? Author Medication Management General On track( 024 4:13 PM CDT) Kelly Driscoll, RN Note: Expected end date: ongoing Interventions: Take all medications as prescribed documented as of this encounter Visit Diagnoses Not on filedocumented in this encounter Care Teams Retail Assistant Manager Relationship Specialty Start Date End Date Pierre Clavo Update Information PCP - General 09/22/19 12/01/22 Alcides Schultz MD [address] [place] [phone] PCP - General Internal Medicine 12/02/22 01/06/23 Pierre Calvo MD [address] [place] [phone] PCP - General Family Medicine 01/07/23 documented as of this encounter
== END 2024-05-22 13:07 | disposition home or self-care (01) ==
LOC: ANHASCIMG 13:09
PROVIDERS: PCP Family Medicine; Visit Provider Family Medicine
DX: M25.552 Pain in left hip (principal)
CPT/HCPCS: 73502